=== PATIENT | male | born 1950 | race Caucasian/White ===

== ENCOUNTER 2018-01-08 18:56 | Inpatient (IN) ==
[2018-01-08] MEDS ORDERED: Ondansetron 4 MG/2 ML VIAL IVP ONE (21:00)
[2018-01-08] MEDS ORDERED: Ondansetron 4 MG/2 ML VIAL ONE (21:22)
[2018-01-08] MEDS ORDERED: Naloxone 0.4 MG/ML INJ IVP PRN ×2 (22:27→22:49)
[2018-01-08] MEDS: OXYCODONE Oral CONC 10 MG/0.5 ML ORAL.SYG SL PRN (23:07)
[2018-01-08 23:22] LABS: Basophils % 0.2 %; Eosinophils % 0.2 %; Hematocrit 32.4 % (37.5-50.1); Hemoglobin 11.5 g/dL (12.9-16.9); Immature Granulocytes % 0.4 % (0-4); Lymphocytes # 1.1 K/mcL (0.6-4.6); Lymphocytes % 8.9 %; Mean Corpuscular HGB Conc 35.5 g/dL (31.6-35.5); Mean Corpuscular Hemoglobin 31.9 pg (28.0-33.3); Mean Corpuscular Volume 89.8 fL (83.0-100.0); Mean Platelet Volume 9.2 fL (9.4-12.4); Monocytes # 0.7 K/mcL (0.0-1.3); Monocytes % 5.8 %; Platelet Count 102 K/mcL (140-400); Red Blood Count 3.61 M/mcL (4.19-5.50); Red Cell Distribution Width 14.1 % (11.5-14.5); Segmented Neutrophils % 84.5 %
[2018-01-08 23:42] LABS: Albumin/Globulin Ratio 1.7 (1.1-2.2); Bilirubin,Total 1.5 mg/dL (0.3-1.0); Calcium 9.2 mg/dL (8.6-10.3); Globulin 2.3 g/dL (2.4-3.5); Potassium 4.6 mEq/L (3.5-5.1); Total Protein 6.3 g/dL (6.4-8.9)
[2018-01-09] MEDS ORDERED: 0.9 % Sodium Chloride 1,000 ML IVC ONE (00:38)
[2018-01-09] MEDS ORDERED: D5% in Water 1,000 ML IVC PRN (00:43)
[2018-01-09] MEDS ORDERED: *HR* Dextrose 50 % in Water (Syg) 50 ML SYRINGE IVP PRN (00:43)
[2018-01-09] MEDS ORDERED: Dextrose Gel 15 GM/37.5 ML TUBE PO PRN ×2 (00:43)
[2018-01-09] MEDS ORDERED: Insulin DETEMIR 100 UNIT/ML X5UNITS SQ SCH (00:45)
--- NOTE | 2018-01-09 00:53 | Internal Med History&Physical ---
Date of Encounter: 01/08/18 Time of Encounter: 22:15 Internal Medicine - H&P: HPI Chief complaint: Subcapsular hematoma on left kidney Admitted From: Home Plans for Post Hospital Care: Home History of present illness: Mr. Smith is a 67 year old male Patient presented to the [facility] emergency room for left flank pain and nausea. He had just undergone a left renal biopsy earlier in the day. He states that the pain started after he had left, and has been worsening ever since. He also has started to dry heave, unable to vomit anything because he has not eaten all day. The pain does not radiate, he denies chest pain and shortness of breath. Denies diarrhea and constipation. In the emergency room patient, patient's CT abdomen showed acute mixed density subcapsular hematoma on the left kidney, 3.5cm thick up to 9.5cm craniocaudad. Perinephric air compatible with biopsy was also seen. Lab work showed platelet level of 126, BMP showed elevated creatinine and BUN, and a GFR of 30. EKG showed normal sinus rhythm with first degree heart block and a QTc of 495ms. He was given pain medication as well as nausea medication prior to being sent to [facility] for further management. According to my signout, Dr. Maxwell of interventional radiology was notified of the patient from [facility], and will see him on consult here at [facility]. Upon my evaluation, patient still feels nauseated and has left sided flank pain. Past Med Surg Social Fam HX - Past Medical History Medical history: diabetes, hypertension, myocardial infarction, renal disease Additional medical history: PERIPHERAL EDEMA. CKD IV. DIABETIC RENAL DISEASE. HYPERURICEMIA. ANEMIA. VITAMIN D DEFICIENCY. SECONDAY HYPERPARATHYROIDISM. MICROSCOPIC HEMATURIA Psychiatric history: no psych history - Past Surgical History Additional surgical history: HEART STENTS. CATARACTS. CHOLECYSTECTOMY. RIGHT HIP - Social History Smoking Status: Former smoker Smokeless Tobacco Status: No Alcohol use: none Drug use: none - Family History Mother Living Status: Age at : 38 Cause of : Heart Attack Hx Family Cardiac Disorders: Yes (OR) Father Living Status: Age at : 77 Cause of : Alcoholism Internal Medicine - H&P: Meds Allopurinol [Zyloprim 300 MG] 300 mg PO DAILY 01/08/18 [History] Aspirin [Adult Aspirin] 81 mg PO DAILY 01/08/18 [History] Atorvastatin [Lipitor] 40 mg PO HS 01/08/18 [History] Cholecalciferol (Vitamin D3) [Vitamin D] 2,000 unit PO DAILY 01/08/18 [History] Clopidogrel [Plavix] 75 mg PO DAILY 01/08/18 [History] Insulin NPH Hum/Reg Insulin Hm [Humulin 70-30 Vial] 100 unit SQ QAM AND QHS [History] Metoprolol Tartrate 75 mg PO BID 01/08/18 [History] Multivitamin [One Daily Essential] 1 each PO DAILY 01/08/18 [History] Olmesartan Medoxomil [Benicar] 20 mg PO DAILY 01/08/18 [History] amLODIPine [Norvasc] 5 mg PO DAILY 01/08/18 [History] cloNIDine HCl [CloNIDine HCl] 0.1 mg PO DAILY PRN 01/08/18 [History] 3 Allergy/AdvReac Type Severity Reaction Status Date / Time morphine AdvReac Nausea Verified 01/08/18 10:10 naproxen [From Naprosyn] AdvReac Rash Verified 01/08/18 10:10 All Systems PM: A 10-system review of systems was performed and is negative for pertinent findings except as documented above in the HPI. - Constitutional Vitals: Temp Pulse Resp BP Pulse Ox 97.9 F 96 12 166/88 99 01/08/18 21:20 01/08/18 21:20 01/08/18 21:20 01/08/18 21:20 01/08/18 21:20 General appearance: Present: cooperative, mild distress, A&O X 3, answers questions appropriately - Head Head exam: Present: normal inspection - Eye Eye exam: Present: EOMI, normal appearance - Respiratory Respiratory exam: Present: CTAB. Absent: chest wall tenderness, decreased breath sounds, respiratory distress, wheezes - Cardiovascular Cardiovascular exam: Present: RRR. Absent: diastolic murmur, systolic murmur - GI/Abdominal GI/Abdominal exam: Present: normal bowel sounds, soft, tenderness Additional comments: Left flank tenderness with palpation, no swelling noted. No erythema or bruising - Extremities Exam Extremities exam: Present: warm, radial pulses palpable and symmetrical. Absent : pedal edema, tenderness Additional comments: Right charcot foot, decreased sensation bilaterally. - Back Exam Back exam: Present: CVA tenderness (L) Additional comments: Site of previous biopsy seen at left lower back, no active bleed from wound. No erythema or bruising noted. - Neurological Exam Neurological exam: Present: motor sensory deficit, no focal deficits, strengths equal and symetr throughout. Absent: facial droop, speech deficit Additional comments: Bilaterally has decreased sensation in feet, present on admission - Skin Skin exam: Present: dry, normal color, warm Additional comments: Small wound from biopsy left lower back Internal Med - H&P Results - Labs CBC & Chem 7: 01/08/18 23:00 01/08/18 23:00 Labs: Short CBC 01/08/18 Range/Units 23:00 WBC 11.8 H D (4.3-11.1) K/mcL Hgb 11.5 L (12.9-16.9) g/dL Hct 32.4 L (37.5-50.1) % Plt Count 102 L (140-400) K/mcL Neutrophils # 10.0 H (1.6-8.9) K/mcL BMP 01/08/18 23:00 Sodium 138 Potassium 4.6 Chloride 105 Carbon Dioxide 23 BUN 41 H Creatinine 2.36 H Glucose 214 H Calcium 9.2 Liver Function 01/08/18 Range/Units 23:00 Total Bilirubin 1.5 H (0.3-1.0) mg/dL AST 19 (13-39) Units/L ALT 20 (7-52) Units/L Alkaline Phosphatase 89 (34-104) Units/L Albumin 4.0 (3.5-5.7) g/dL - Assessment and plan (1) Kidney hematoma Current Visit: Yes Status: Acute Assessment and plan: Secondary to today's biopsy. Dr. Maxwell of IR called from [facility], will see in consult. Hemoglobin stable, 12.4 at [facility] Repeat labs Q6H and monitor hemoglobin Type and screen if blood loss suspected, H/H stable currently IR to see in the AM Qualifiers: Qualified Code(s): S37.012A - Minor contusion of left kidney, initial encounter (2) Nausea Current Visit: Yes Status: Acute Assessment and plan: Secondary to biopsy and abdominal pain, will monitor QTc for prolongation when giving zofran and phenergan. EKG upon arrival Zofran as needed if QTc not prolonged. (3) Acute flank pain Current Visit: Yes Status: Acute Assessment and plan: Secondary to biopsy Oxycodone as needed for pain sublingual. (4) Diabetes Current Visit: Yes Status: Acute Assessment and plan: Insulin dependent, currently patient is NPO due to nausea and in case procedures need to be performed in the morning. Monitor blood sugar Q6H Sliding scale insulin medium Basal insulin tonight. Qualifiers: Diabetes mellitus type: type 2 Diabetes mellitus termite inspector insulin use: with termite inspector use Diabetes mellitus complication status: with neurologic complications Diabetes mellitus complication detail: with polyneuropathy Qualified Code(s): E11.42 - Type 2 diabetes mellitus with diabetic polyneuropathy; Z79.4 - nursing home (current) use of insulin (5) Thrombocytopenia Current Visit: Yes Status: Acute Assessment and plan: Patient seems to have a chronic history of low platelets. Could have contribute to his current hematoma. Continue to monitor (6) History of heart artery stent Current Visit: Yes Status: Acute Assessment and plan: Patient takes plavix and ASA daily for this, however was told to stop it the day prior to his procedure. Patient denies chest pain. Will resume at discharge when stable from the hematoma. (7) Neuropathy Current Visit: Yes Status: Acute Assessment and plan: Bilateral secondary to diabetes Continue to monitor. (8) Charcot foot due to diabetes mellitus Current Visit: Yes Status: Acute Assessment and plan: Chronic, managing diabetes as above. Patient has wobbly gait due to this at baseline. (9) HTN (hypertension) Current Visit: Yes Status: Acute Assessment and plan: Chronic, continue home meds at discharge Continue to monitor. Qualifiers: Qualified Code(s): I10 - Essential (primary) hypertension (10) DVT prophylaxis Current Visit: Yes Status: Acute Assessment and plan: SCDs - Time Spent With Patient Total time spent is greater than 50% in coordination of care (as documented) at patient's floor/unit and/or counseling patient: Greater than 35 minutes
[2018-01-09] MEDS: Ondansetron 4 MG/2 ML VIAL IVP PRN ×2 (03:19→08:07)
[2018-01-09 04:00] LABS: Hematocrit 30.6 % (37.5-50.1); Hemoglobin 10.7 g/dL (12.9-16.9); Mean Corpuscular Hemoglobin 31.6 pg (28.0-33.3); Mean Corpuscular Volume 90.3 fL (83.0-100.0); Mean Platelet Volume 8.9 fL (9.4-12.4); Platelet Count 105 K/mcL (140-400); Red Blood Count 3.39 M/mcL (4.19-5.50)
[2018-01-09 04:26] LABS: Potassium 4.6 mEq/L (3.5-5.1)
[2018-01-09 07:36] LABS: Basophils % 0.1 %; Hematocrit 29.6 % (37.5-50.1); Hemoglobin 10.5 g/dL (12.9-16.9); Immature Granulocytes % 0.4 % (0-4); Immature Platelets 1.1 % (1.1-6.1); Lymphocytes % 8.8 %; Mean Corpuscular HGB Conc 35.5 g/dL (31.6-35.5); Mean Corpuscular Volume 90.2 fL (83.0-100.0); Mean Platelet Volume 9.1 fL (9.4-12.4); Monocytes # 0.8 K/mcL (0.0-1.3); Monocytes % 7.2 %; Neutrophils # 9.6 K/mcL (1.6-8.9); Platelet Count 118 K/mcL (140-400); Red Blood Count 3.28 M/mcL (4.19-5.50); Red Cell Distribution Width 13.9 % (11.5-14.5); Segmented Neutrophils % 83.5 %
[2018-01-09 07:41] LABS: INR 1.1; Prothrombin Time 12.8 Seconds (9.4-12.1)
[2018-01-09] MEDS: OXYCODONE Oral CONC 10 MG/0.5 ML ORAL.SYG SL PRN (08:07)
[2018-01-09] MEDS ORDERED: *HR* Morphine 2 MG/ML SYRINGE IVP ONE (08:17)
[2018-01-09] MEDS: Insulin LISPRO 300 UNITS/3 ML VIAL SQ SCH ×4 (08:28→21:59)
--- NOTE | 2018-01-09 08:31 | Electrocardiograph Report ---
[address] [place] [address] Test Date: 2018-01-08 Pat Name: Salvador Smith Department: 111 Room: 2A23 Gender: Weight Loss Consultant: : 1950 Requested By: Gino Bartholomew Order Number: [id number] Reading MD: Maxi Montanez Measurements Intervals [place] Rate: 99 P: -74 AR: 229 QRS: -48 QRSD: 116 T: 76 QT: 387 QTc: 443 Interpretive Statements SINUS RHYTHM WITH FIRST DEGREE AV BLOCK LEFT ANTERIOR FASCICULAR BLOCK LEFT VENTRICULAR HYPERTROPHY AND ST-T CHANGE POSSIBLE ANTERIOR MYOCARDIAL INFARCTION, OF INDETERMINATE AGE Electronically Signed On 01-09-2018 8:29:43 EDT by Maxi Montanez
--- NOTE | 2018-01-09 08:31 | Electrocardiograph Report ---
[address] [place] [address] Test Date: 2018-01-08 Pat Name: Salvador Smith Department: 111 Room: 2A23 Gender: M Physical Plant Manager: : 1950 Requested By: Lenny Mayfield Order Number: [id number] Reading MD: Maxi Montanez Measurements Intervals [place] Rate: 99 P: 17 TN: 223 QRS: -48 QRSD: 104 T: 62 QT: 371 QTc: 427 Interpretive Statements SINUS RHYTHM WITH FIRST DEGREE AV BLOCK MARKED LEFT AXIS DEVIATION VOLTAGE CRITERIA FOR LVH POSSIBLE ANTERIOR MYOCARDIAL INFARCTION, OF INDETERMINATE AGE Electronically Signed On 01-09-2018 8:30:05 EDT by Maxi Montanez
[2018-01-09] MEDS ORDERED: *HR* FentaNYL (PF) 100 MCG/2 ML VIAL IVP ONE ×2 (08:40→14:15)
--- NOTE | 2018-01-09 10:01 | Internal Med Progress Note ---
Date of Encounter: 01/09/18 Time of Encounter: 08:00 - Assessment and plan (1) Kidney hematoma Current Visit: Yes Status: Acute Assessment and plan: Acute left renal subcapsular hematoma - likely due to recent biopsy H&H is currently stable - monitor closely Continue IV Zofran as needed for nausea, IV morphine as needed for pain NPO except meds Hold ASA, Plavix Transfuse PRBC if hemoglobin drops below 10.0 CT Abd - mixed density subcapsular hematoma of the left kidney 3.5 cm thick, perinephric air compatible with biopsy Interventional radiology consult - pending Repeat labs in a.m., monitor closely Qualifiers: Encounter type: subsequent encounter Laterality: left Qualified Code(s): S37.012D - Minor contusion of left kidney, subsequent encounter (2) CKD (chronic kidney disease) stage 3, GFR 30-59 ml/min Current Visit: Yes Status: Chronic Assessment and plan: Mild DELFINA on CKD stage 3 - possibly related to hematoma and dehydration Continue IV fluids, avoid nephrotoxic agents and renally adjust meds Hold home dose of Benicar Nephrology consult - pending Repeat labs in a.m. (3) Diabetes Current Visit: Yes Status: Chronic Assessment and plan: Type 2 diabetes mellitus, insulin dependent hyperglycemia Continue insulin sliding scale with NovoLog Qualifiers: Diabetes mellitus type: type 2 Diabetes mellitus rodent exterminator insulin use: with rodent exterminator use Diabetes mellitus complication status: with neurologic complications Diabetes mellitus complication detail: with polyneuropathy Qualified Code(s): E11.42 - Type 2 diabetes mellitus with diabetic polyneuropathy; Z79.4 - shelter (current) use of insulin (4) CAD (coronary artery disease) Current Visit: Yes Status: Chronic Assessment and plan: Coronary artery disease s/p - stable, no anginal symptoms Continue home dose of Lipitor Hold ASA, Plavix due to hematoma Qualifiers: Coronary Disease-Associated Artery/Lesion type: [place] artery [place] vs. transplanted heart: [place] heart Associated angina: without angina Qualified Code(s): I25.10 - Atherosclerotic heart disease of [place] coronary artery without angina pectoris (5) HTN (hypertension) Current Visit: Yes Status: Chronic Assessment and plan: Essential hypertension, controlled, monitor closely Continue home dose of Lopressor, Norvasc Hold Benicar due to DELFINA on CKD 3 Qualifiers: Hypertension type: essential hypertension Qualified Code(s): I10 - Essential (primary) hypertension (6) Thrombocytopenia Current Visit: Yes Status: Chronic Assessment and plan: Chronic thrombocytopenia - possibly contributing to hematoma Monitor closely (7) DVT prophylaxis Current Visit: Yes Status: Acute Assessment and plan: SCDs. Avoid anticoagulants due to hematoma - Time Spent With Patient 25 - 35 minutes - Subjective Interval history: Examined this morning. Patient is awake. He is in discomfort due to left flank pain. Complains of persistent pain and nausea. Rates a 7/10. Worse with movement. He describes it as sharp pain. No fever. Hemodynamically stable. No other acute complaints. Admitted for left renal supcapsular Hematoma. H&H is currently stable. Monitor H&H closely. Interventional radiology consult is pending. Continue IV pain medication and IV fluids. Nephrology consult pending. - Constitutional Vitals: Temp Pulse Resp BP Pulse Ox 98.8 F 95 18 148/81 95 01/09/18 07:15 01/09/18 07:15 01/09/18 07:15 01/09/18 07:15 01/09/18 07:15 General appearance: Present: cooperative, mild distress (Discomfort due to pain) , A&O X 3, obese, answers questions appropriately - Head Head exam: Present: atraumatic - Eye Eye exam: Present: EOMI - ENT ENT exam: Present: mucous membranes dry - Respiratory Respiratory exam: Present: CTAB. Absent: rhonchi, tachypnea - Cardiovascular Cardiovascular exam: Present: RRR, +S1, +S2 - GI/Abdominal GI/Abdominal exam: Present: diminished bowel sounds, distended (Obese abdomen, slightly distended.), tenderness (Left flank tenderness). Absent: firm, guarding - Extremities Exam Extremities exam: Absent: calf tenderness, pedal edema - Neurological Exam Neurological exam: Present: alert, oriented X3, no focal deficits - Psychiatric Psychiatric exam: Present: anxious Internal Medicine: Result - Labs CBC & Chem 7: 01/09/18 07:26 01/09/18 03:44 Labs: Short CBC 01/08/18 01/09/18 01/09/18 Range/Units 23:00 03:44 07:26 WBC 11.8 H D 11.1 11.5 H (4.3-11.1) K/mcL Hgb 11.5 L 10.7 L 10.5 L (12.9-16.9) g/dL Hct 32.4 L 30.6 L 29.6 L (37.5-50.1) % Plt Count 102 L 105 L 118 L (140-400) K/mcL Neutrophils # 10.0 H 9.6 H (1.6-8.9) K/mcL BMP 01/08/18 01/09/18 23:00 03:44 Sodium 138 139 Potassium 4.6 4.6 Chloride 105 107 Carbon Dioxide 23 22 L BUN 41 H 42 H Creatinine 2.36 H 2.47 H Glucose 214 H 203 H Calcium 9.2 9.0 Liver Function 01/08/18 Range/Units 23:00 Total Bilirubin 1.5 H (0.3-1.0) mg/dL AST 19 (13-39) Units/L ALT 20 (7-52) Units/L Alkaline Phosphatase 89 (34-104) Units/L Albumin 4.0 (3.5-5.7) g/dL - ABG Interpretation ABG results: PT/INR, D-dimer PT 12.8 Seconds (9.4-12.1) H 01/09/18 07:26 Consult Discharge Plan - Plan Referrals: Esequiel Bernstein MD [Primary Care Provider] -
[2018-01-09] MEDS: Cholecalciferol (D-3) 1,000 UNIT TABLET PO SCH (10:08)
[2018-01-09] MEDS: Multivit/Ca/Min/Fe/FA 1 TAB TABLET PO SCH (10:08)
[2018-01-09] MEDS: 0.9 % Sodium Chloride 1,000 ML IVC SCH (10:10)
--- NOTE | 2018-01-09 12:25 | Nephrology Consult Note ---
<Jeffrey Begum - Last Filed: 01/09/18 14:50> Date of Encounter: 01/09/18 Time of Encounter: 12:30 Assessment and Plan (1) Stage 4 chronic kidney disease Current Visit: Yes Status: Acute Patient follows with Dr. Patricio for CKD, recent worsening of CKD from stage 3 to stage 4. He is status post left renal biopsy on 01/08/18. reviewed eCw, PTH WNL, UA demonstrated small blood and trace protein. Biopsy was ordered to rule out glomerular disease. At [place] [facility] ER, CT abdomen showed acute mixed density subcapsular hematoma on the left kidney, 3.5cm thick up to 9.5cm craniocaudad We will obtain a repeat UA and recommend serial Hb Check. IR to address left kidney hematoma. Nephrology will continue to follow. (2) Kidney hematoma Current Visit: Yes Status: Acute left kidney hematoma s/p CT guided left kidney biopsy. Recommend serial Hb check. IR to address. Continue pain management and IVF as needed. (4) Diabetes Current Visit: Yes Status: Acute Assessment and plan: Insulin dependent, currently patient is NPO due to nausea and in case procedures need to be performed by IR. Treat per primary. continue sliding scale insulin medium Qualifiers: Diabetes mellitus type: type 2 Diabetes mellitus jail insulin use: with director risk use Diabetes mellitus complication status: with neurologic complications Diabetes mellitus complication detail: with polyneuropathy Qualified Code(s): E11.42 - Type 2 diabetes mellitus with diabetic polyneuropathy; Z79.4 - senior living (current) use of insulin (5) Thrombocytopenia Current Visit: Yes Status: Acute Assessment and plan: Patient seems to have a chronic history of low platelets. Could have contribute to his current hematoma. Continue to monitor (6) History of heart artery stent Current Visit: Yes Status: Acute Assessment and plan: Per primary, patient takes plavix and ASA daily for this, however was told to stop it the day prior to his procedure. Patient denies chest pain. Will resume at discharge when stable from the hematoma. (7) HTN (hypertension) Current Visit: Yes Status: Acute Assessment and plan: Chronic, continue home meds at discharge Continue to monitor. Qualifiers: Qualified Code(s): I10 - Essential (primary) hypertension Qualifiers: Encounter type: subsequent encounter Laterality: left Qualified Code(s): S37.012D - Minor contusion of left kidney, subsequent encounter History of Present Illness - Reason for Consult Consult date: 01/09/18 - Chief Complaint left flank pain and nausea - History of Present Illness Mr. Guerrero is a 67M with PMHx CKD stage 3/4, diabetes, HTN, CAD who presented to [place] [facility] ED with complaints of left flank pain and nausea. He had left renal biopsy prior to his presentation to the emergency room. Left flank pain and nausea started after his biopsy. His appetite has also been declining and he has been dry heaving. Reports that the pain does not radiate. Denies chest pain or SOB. At the ED, CT demonstraeted acute mixed density subcapsular hematoma on the left kidney, 3.5cm thick up to 9.5 cm craniocaudad. EKG was NSR with first degree block and prolonged QT. Pain and nausea medication was given and patient' s symptoms improved. Dr. Maxwell of was notified and will see him later today. Today, patient is still nauseas and continues to have left flank pain. He reports temporary improvement of pain with the pain medication. Still has poor appetite and denies having vomited. Denies CP, SOB. Family at bedside is tearful. Past Med Surg Social Fam HX - Past Medical History Medical history: diabetes, hypertension, myocardial infarction, renal disease Additional medical history: PERIPHERAL EDEMA. CKD IV. DIABETIC RENAL DISEASE. HYPERURICEMIA. ANEMIA. VITAMIN D DEFICIENCY. SECONDAY HYPERPARATHYROIDISM. MICROSCOPIC HEMATURIA Psychiatric history: no psych history - Past Surgical History Additional surgical history: HEART STENTS. CATARACTS. CHOLECYSTECTOMY. RIGHT HIP - Social History Smoking Status: Former smoker Smokeless Tobacco Status: No Alcohol use: none Drug use: none - Family History Mother Living Status: Age at : 38 Cause of : Heart Attack Hx Family Cardiac Disorders: Yes (OK) Father Living Status: Age at : 77 Cause of : Alcoholism Medications and Allergies Allopurinol [Zyloprim 300 MG] 300 mg PO DAILY 01/08/18 [History] Aspirin [Adult Aspirin] 81 mg PO DAILY 01/08/18 [History] Atorvastatin [Lipitor] 40 mg PO HS 01/08/18 [History] Cholecalciferol (Vitamin D3) [Vitamin D] 2,000 unit PO DAILY 01/08/18 [History] Clopidogrel [Plavix] 75 mg PO DAILY 01/08/18 [History] Insulin NPH Hum/Reg Insulin Hm [Humulin 70-30 Vial] 100 unit SQ QAM AND QHS [History] Metoprolol Tartrate 75 mg PO BID 01/08/18 [History] Multivitamin [One Daily Essential] 1 each PO DAILY 01/08/18 [History] Olmesartan Medoxomil [Benicar] 20 mg PO DAILY 01/08/18 [History] amLODIPine [Norvasc] 5 mg PO DAILY 01/08/18 [History] cloNIDine HCl [CloNIDine HCl] 0.1 mg PO DAILY PRN 01/08/18 [History] 3 Allergy/AdvReac Type Severity Reaction Status Date / Time morphine AdvReac Nausea Verified 01/08/18 10:10 naproxen [From Naprosyn] AdvReac Rash Verified 01/08/18 10:10 Review of Systems All Systems: reviewed and no additional remarkable complaints except as stated Constitutional: as per HPI Nose, mouth and throat: as per HPI Cardiovascular: as per HPI Respiratory: as per HPI Gastrointestinal: as per HPI Musculoskeletal: as per HPI Integumentary: as per HPI Exam - Vital Signs Vital signs: Initial Vital Signs Pulse Ox 99 01/08/18 21:13 Vital Signs - Last 8 Hours Temp Pulse Resp BP Pulse Ox 01/09/18 11:04 99.1 F 86 16 157/81 98 01/09/18 07:15 98.8 F 95 18 148/81 95 01/09/18 05:26 98.6 F 93 18 147/80 99 Intake and Output 01/08/18 01/09/18 01/09/18 23:59 07:59 15:59 Intake Total 1000 / 1000 Output Total 50 / 50 Balance -50 / -50 1000 / 1000 Intake: IV Fluids 1000 / 1000 0.9 % Sodium Chloride 1,000 ML 1000 / 1000 @ 250 mls/hr IVC .Q4H ONE Rx#: [id number] Output: Emesis 50 / 50 Other: Weight 101 kg Blood Glucose* 188 204 196 - General Appearance Exam: General appearance: Present: cooperative, mild distress, A&O X 3, answers questions appropriately - Head Head exam: Present: normal inspection - Eye Eye exam: Present: EOMI, normal appearance - Respiratory Respiratory exam: Present: CTAB. Absent: chest wall tenderness, decreased breath sounds, respiratory distress, wheezes - Cardiovascular Cardiovascular exam: Present: RRR. Absent: diastolic murmur, systolic murmur - GI/Abdominal GI/Abdominal exam: Present: normal bowel sounds, soft, tenderness Additional comments: Left flank tenderness with palpation, no swelling noted. No erythema or bruising - Extremities Exam Extremities exam: Present: warm, radial pulses palpable and symmetrical. Absent : pedal edema, tenderness Additional comments: Right charcot foot, decreased sensation bilaterally. - Back Exam Back exam: Present: CVA tenderness (L) Additional comments: Site of previous biopsy seen at left lower back, no active bleed from wound. No erythema or bruising noted. - Neurological Exam Neurological exam: Present: motor sensory deficit, no focal deficits, strengths equal and symmetric throughout. Absent: facial droop, speech deficit Additional comments: Bilaterally has decreased sensation in feet, present on admission - Skin Skin exam: Present: dry, normal color, warm Additional comments: Small wound from biopsy left lower back Results - Lab Results 01/09/18 13:07 01/09/18 03:44 Most recent lab results Calcium 9.0 mg/dL (8.6-10.3) 01/09/18 03:44 Consult Discharge Plan - Plan Referrals: Esequiel Bernstein MD [Primary Care Provider] - <María Elena Jamil - Last Filed: 01/09/18 15:54> Date of Encounter: 01/09/18 Exam - Vital Signs Vital signs: Initial Vital Signs Pulse Ox 99 01/08/18 21:13 Vital Signs - Last 8 Hours Temp Pulse Resp BP Pulse Ox 01/09/18 15:38 98.8 F 71 18 134/66 96 01/09/18 11:04 99.1 F 86 16 157/81 98 Intake and Output 01/08/18 01/09/18 01/09/18 23:59 07:59 15:59 Intake Total 1000 / 1000 0 / 0 Output Total 50 / 50 Balance -50 / -50 1000 / 1000 0 / 0 Intake: IV Fluids 1000 / 1000 0.9 % Sodium Chloride 1,000 ML 1000 / 1000 @ 250 mls/hr IVC .Q4H ONE Rx#: [id number] Oral 0 / 0 Output: Emesis 50 / 50 Other: Meal NPO Percent of Meal Consumed 0% Weight 101 kg Blood Glucose* 188 204 196 Results - Lab Results 01/09/18 13:07 01/09/18 03:44 Most recent lab results Calcium 9.0 mg/dL (8.6-10.3) 01/09/18 03:44 - Attending Attestation I examined this patient and my medical decision-making was reviewed with the Resident Physician. I agree with the documented findings, disposition and treatment plan as described except to the extent set forth below. Pt seen and examined presenting with sever left sided flank pain hours after renal biopsy by IR under CT guidance for worsening renal fxn. CT noted to have hematoma and dropping hgb also noted. Exam only remarkable for left flank tenderness. Agree with IR reassessing pateint for need for any further intervention. Continue serial hgb checks and transfuse as needed. Need UA now and will recheck as needed if significant hematuria noted. Renal fxn fairly stable, will follow.
[2018-01-09 13:20] LABS: Basophils % 0.2 %; Hematocrit 28.2 % (37.5-50.1); Hemoglobin 9.6 g/dL (12.9-16.9); Immature Granulocytes % 0.5 % (0-4); Lymphocytes # 1.1 K/mcL (0.6-4.6); Lymphocytes % 8.6 %; Mean Corpuscular Hemoglobin 30.7 pg (28.0-33.3); Mean Corpuscular Volume 90.1 fL (83.0-100.0); Monocytes # 1.2 K/mcL (0.0-1.3); Monocytes % 9.5 %; Neutrophils # 10.4 K/mcL (1.6-8.9); Platelet Count 114 K/mcL (140-400); Red Blood Count 3.13 M/mcL (4.19-5.50); Red Cell Distribution Width 14.3 % (11.5-14.5); Segmented Neutrophils % 81.2 %
[2018-01-09] MEDS ORDERED: Pantoprazole 40 MG VIAL IVP ONE (17:45)
--- NOTE | 2018-01-09 18:20 | Event Note ---
Date of Encounter: 01/09/18 Time of Encounter: 18:00 Discussed about the patient this evening with Dr Mix, nephrology. We will transfuse 1 unit PRBC because patient had a 2 unit drop in hemoglobin. Patient continues to have left flank pain, retching and also complains of nausea. Patient possibly has GERD/gastritis. IV Protonix 40 mg given x1. Continue IV Zofran PRN. Hemodynamically stable at this time. Discussed with Dr Maxwell, inteventional radiology, earlier today. States that the hematoma seems to be contained and that patient has tamponade. He recommended to monitor H&H closely and continue supportive care. Advised to call back if patient develops any other problems or symptoms. I have paged interventional radiology this evening for possible need for intervention. Patient may be actively bleeding. Awaiting IR to call back. Transfuse 1 unit PRBC now. Monitor H&H closely.
[2018-01-09 18:21] LABS: Basophils % 0.1 %; Eosinophils % 0.1 %; Hematocrit 28.5 % (37.5-50.1); Immature Granulocytes % 0.6 % (0-4); Lymphocytes # 1.1 K/mcL (0.6-4.6); Lymphocytes % 7.3 %; Mean Corpuscular HGB Conc 35.1 g/dL (31.6-35.5); Mean Corpuscular Hemoglobin 32.2 pg (28.0-33.3); Mean Corpuscular Volume 91.6 fL (83.0-100.0); Mean Platelet Volume 9.1 fL (9.4-12.4); Monocytes # 1.6 K/mcL (0.0-1.3); Monocytes % 10.6 %; Neutrophils # 12.3 K/mcL (1.6-8.9); Platelet Count 115 K/mcL (140-400); Red Blood Count 3.11 M/mcL (4.19-5.50); Red Cell Distribution Width 14.2 % (11.5-14.5); Segmented Neutrophils % 81.3 %
[2018-01-09 18:34] LABS: Calcium 8.7 mg/dL (8.6-10.3); Potassium 4.8 mEq/L (3.5-5.1)
[2018-01-09 20:49] LABS: Bilirubin,Urine Negative (Negative); Clarity,Urine Clear (Clear); Color,Urine Yellow (Yellow); Glucose,Urine (UA) 100 mg/dL (Normal); Ketones,Urine Negative (Negative)
[2018-01-09 20:50] LABS: Blood,Urine Small (Negative); Leukocyte Esterase,Urine Negative (Negative); Nitrite,Urine Negative (Negative); Protein,Urine 100 mg/dL (Neg-Trace); Urobilinogen,Urine Normal (Normal)
[2018-01-09] MEDS ORDERED: 0.9 % Sodium Chloride 250 ML ONE (21:04)
[2018-01-09 21:24] LABS: Bacteria,Urine Few per hpf (None-Few); RBC,Urine 0-3 per hpf (0-3); WBC,Urine 0-3 per hpf (0-3)
[2018-01-09] MEDS: Insulin DETEMIR 100 UNIT/ML X5UNITS SQ SCH (21:59)
--- NOTE | 2018-01-09 22:04 | Event Note ---
Date of Encounter: 01/09/18 Time of Encounter: 21:[address] Olvin Carter. Radiologist had called regarding the patient's CT of the abdomen/pelvis stating that the hematoma appeared stable and recommended monitoring blood pressure and H&H and to call radiologist back if any change in clinical condition. Discussed these findings with patient's nurse with orders to monitor H&H every 6 and blood pressure every hour. Patient to be monitored closely overnight.
[2018-01-10 01:59] LABS: Hematocrit 26.9 % (37.5-50.1); Hemoglobin 9.2 g/dL (12.9-16.9)
[2018-01-10 02:19] LABS: Calcium 8.2 mg/dL (8.6-10.3); Potassium 4.8 mEq/L (3.5-5.1)
[2018-01-10] MEDS: Ondansetron 4 MG/2 ML VIAL IVP PRN ×2 (02:44→08:49)
[2018-01-10] MEDS: 0.9 % Sodium Chloride 1,000 ML IVC SCH ×2 (02:46→18:31)
[2018-01-10] MEDS ORDERED: *HR* FentaNYL (PF) 100 MCG/2 ML VIAL IVP ONE (04:24)
[2018-01-10] MEDS ORDERED: Nitroglycerin 0.4 MG TAB.SUBL SL PRN (06:34)
[2018-01-10] MEDS: Insulin LISPRO 300 UNITS/3 ML VIAL SQ SCH ×3 (07:51→17:15)
--- NOTE | 2018-01-10 07:59 | Event Note ---
Date of Encounter: 01/10/18 Time of Encounter: 06:50 Called to the patient's room for sudden onset of left sided chest pain. Had not had pain like this previously. Ordered EKG and stat troponin to evaluate. EKG did not appear to have any ST changes, very similar to his previous EKG. 1 SL nitro also given which improved the pain some. I spoke with the provider who will be managing his care today and he agreed to follow up.
[2018-01-10 08:49] LABS: Hematocrit 27.6 % (37.5-50.1); Hemoglobin 9.8 g/dL (12.9-16.9)
[2018-01-10] MEDS: Insulin DETEMIR 100 UNIT/ML X5UNITS SQ SCH ×2 (08:49→21:36)
[2018-01-10] MEDS: Pantoprazole 40 MG VIAL IVP SCH (08:49)
[2018-01-10] MEDS: Cholecalciferol (D-3) 1,000 UNIT TABLET PO SCH (08:49)
[2018-01-10] MEDS: Multivit/Ca/Min/Fe/FA 1 TAB TABLET PO SCH (08:49)
[2018-01-10] MEDS: OXYCODONE Oral CONC 10 MG/0.5 ML ORAL.SYG SL PRN (08:58)
--- NOTE | 2018-01-10 09:53 | Internal Med Progress Note ---
Date of Encounter: 01/10/18 Time of Encounter: 08:10 - Assessment and plan (1) Kidney hematoma Current Visit: Yes Status: Acute Assessment and plan: Acute left renal subcapsular hematoma - likely due to recent biopsy - seems stable H&H is currently stable - monitor closely Continue IV Zofran PRN nausea, IV Morphine, Oxycodone PRN pain Advance to clear liquid diet Hold ASA, Plavix due to hematoma Transfuse 1 unit PRBC now. 1 unit PRBC transfused yesterday. Keep hemoglobin > 10.0 CT Abd - mixed density subcapsular hematoma of the left kidney 3.5 cm thick, perinephric air compatible with biopsy Repeat CT Abd/Pelvis - left large perinephric hematoma seems stable Interventional radiology consult - recommends to monitor H&H and blood pressure closely Repeat labs in a.m., monitor closely Qualifiers: Encounter type: subsequent encounter Laterality: left Qualified Code(s): S37.012D - Minor contusion of left kidney, subsequent encounter (2) CKD (chronic kidney disease) stage 3, GFR 30-59 ml/min Current Visit: Yes Status: Chronic Assessment and plan: DELFINA on CKD stage 3-4 - possibly related to hematoma and dehydration - Cr is worse this morning Continue IV fluids, avoid nephrotoxic agents and renally adjust meds Hold home dose of Benicar Nephrology following, appreciate input Repeat labs in a.m. (3) CAD (coronary artery disease) Current Visit: Yes Status: Chronic Assessment and plan: Coronary artery disease s/p - stable - chest pain earlier this morning Continue home dose of Lipitor Hold ASA, Plavix due to hematoma EKG - sinus rhythm with no acute ST-T changes Troponin - 0.04 (cycle troponin) Cardiac consult - pending Qualifiers: Coronary Disease-Associated Artery/Lesion type: [place] artery [place] vs. transplanted heart: [place] heart Associated angina: without angina Qualified Code(s): I25.10 - Atherosclerotic heart disease of [place] coronary artery without angina pectoris (4) Diabetes Current Visit: Yes Status: Chronic Assessment and plan: Type 2 diabetes mellitus, insulin dependent hyperglycemia Continue insulin sliding scale with NovoLog Qualifiers: Diabetes mellitus type: type 2 Diabetes mellitus alf insulin use: with long term care social worker use Diabetes mellitus complication status: with neurologic complications Diabetes mellitus complication detail: with polyneuropathy Qualified Code(s): E11.42 - Type 2 diabetes mellitus with diabetic polyneuropathy; Z79.4 - ocean transportation intermediary (current) use of insulin (5) HTN (hypertension) Current Visit: Yes Status: Chronic Assessment and plan: Essential hypertension, controlled, monitor closely Continue home dose of Lopressor, Norvasc Hold Benicar due to DELFINA on CKD 3-4 Qualifiers: Hypertension type: essential hypertension Qualified Code(s): I10 - Essential (primary) hypertension (6) Thrombocytopenia Current Visit: Yes Status: Chronic Assessment and plan: Chronic thrombocytopenia, stable - possibly contributing to hematoma Monitor closely (7) DVT prophylaxis Current Visit: Yes Status: Acute Assessment and plan: SCDs. Avoid anticoagulants due to hematoma - Time Spent With Patient 25 - 35 minutes - Subjective Interval history: Examined this morning. Patient is awake. Complains of left flank pain and nausea. Rates the pain 5/10. Worse with movement. Seems to be better today. He describes it as sharp pain. No fever. Hemodynamically stable. Renal function is worse this morning. Continue IV fluids. Patient complained of left-sided chest pain earlier this morning. Seems to have resolved with SL Nitro. EKG shows sinus rhythm with no acute ST-T changes. Troponin is 0.04. Cycle troponin. Cardiology consult pending. Admitted for left renal supcapsular Hematoma. H&H dropped slightly. Transfuse 1 unit PRBC now. Patient received 1 unit PRBC yesterday. Monitor H&H closely. Interventional radiology recommends to monitor H&H and blood pressure closely. Continue IV pain medication and IV fluids. Nephrology has evaluated patient. Repeat CT Abd/pelvis - large left perinephric hematoma seems to be stable. is at bedside. I have explained to the patient and his regarding his condition and plan of care in detail. They understood and agreed. - Constitutional Vitals: Temp Pulse Resp BP Pulse Ox 98.0 F 101 20 131/76 92 01/10/18 08:00 01/10/18 08:00 01/10/18 08:00 01/10/18 08:00 01/10/18 08:00 General appearance: Present: cooperative, mild distress (Discomfort due to pain) , A&O X 3, obese, answers questions appropriately Exam: Generalized weakness. Able to provide history. - Head Head exam: Present: atraumatic - Eye Eye exam: Present: EOMI - ENT ENT exam: Present: mucous membranes dry - Neck Neck exam general surgery: Present: supple - Respiratory Respiratory exam: Present: decreased breath sounds (Slightly decreased in both bases, otherwise clear to auscultation) - Cardiovascular Cardiovascular exam: Present: RRR, +S1, +S2 - GI/Abdominal GI/Abdominal exam: Present: distended (obese, slightly distended), soft, tenderness (left flank pain). Absent: firm, guarding - Extremities Exam Extremities exam: Present: pedal edema (mild b/l). Absent: calf tenderness, tenderness - Neurological Exam Neurological exam: Present: alert, oriented X3, no focal deficits. Absent: speech deficit - Psychiatric Psychiatric exam: Present: anxious Internal Medicine: Result - Labs CBC & Chem 7: 01/10/18 08:32 01/10/18 01:45 Labs: Short CBC 01/09/18 01/09/18 01/10/18 Range/Units 13:07 18:07 01:45 WBC 12.7 H 15.1 H (4.3-11.1) K/mcL Hgb 9.6 L 10.0 L 9.2 L (12.9-16.9) g/dL Hct 28.2 L 28.5 L 26.9 L (37.5-50.1) % Plt Count 114 L 115 L (140-400) K/mcL Neutrophils # 10.4 H 12.3 H (1.6-8.9) K/mcL 01/10/18 Range/Units 08:32 WBC (4.3-11.1) K/mcL Hgb 9.8 L (12.9-16.9) g/dL Hct 27.6 L (37.5-50.1) % Plt Count (140-400) K/mcL Neutrophils # (1.6-8.9) K/mcL BMP 01/09/18 01/10/18 18:09 01:45 Sodium 139 136 Potassium 4.8 4.8 Chloride 106 105 Carbon Dioxide 25 24 BUN 51 H 58 H Creatinine 3.18 H 3.34 H Glucose 209 H 196 H Calcium 8.7 8.2 L Cardiac Enzymes 01/10/18 Range/Units 06:41 Troponin I 0.04 H* (< 0.04) ng/mL Urine 01/09/18 Range/Units 12:19 Urine Color Yellow (Yellow) Urine Clarity Clear (Clear) Urine pH 6.0 (5.0-8.0) pH Units Ur Specific Gatzke 1.010 (1.010-1.025) Urine Protein 100 H (Neg-Trace) mg/dL Urine Glucose (UA) 100 H (Normal) mg/dL - ABG Interpretation ABG results: PT/INR, D-dimer PT 12.8 Seconds (9.4-12.1) H 01/09/18 07:26 - Impressions Impressions Abdomen/Pelvis CT 01/09/18 18:26 IMPRESSION: 1. Large left perinephric hematoma measuring approximately 3.3 x 9.0 cm resulting in mass effect upon the left kidney. This is grossly similar in size compared with prior CT same day from 5:13 p.m.. Adjacent left perinephric stranding is seen which extends along the left pericolic gutter with a small amount of trace simple free fluid within the pelvis. 2. Trace left pleural effusion and bibasilar atelectasis. 3. Severe coronary artery atherosclerotic disease. 4. Evidence for remote granulomatous disease. D/ / Robert Johnson MD / Robert Johnson MD Interpreting Provider: Robert Johnson MD Consult Discharge Plan - Plan Referrals: Esequiel Bernstein MD [Primary Care Provider] -
[2018-01-10 10:19] LABS: Troponin I 0.05 ng/mL (< 0.04)
[2018-01-10] MEDS ORDERED: Perflutren Lipid Microsphere 1.3 ML in 0.9 % Sodium Chloride 8.7 ML IVP ONE (10:32)
[2018-01-10] MEDS ORDERED: 0.9 % Sodium Chloride 250 ML ONE (11:13)
[2018-01-10] MEDS ORDERED: Acetaminophen 325 MG TABLET PO PRN (11:23)
--- NOTE | 2018-01-10 11:27 | Cardiology Consult Note ---
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 Nephrology following. (2) Kidney hematoma Current Visit: Yes Status: Acute Per Cardiology: Recent renal biopsy and CT currently shows 3.3cm x 9cm left perinephric hematoma. Has history of anemia, however H&H downward from baseline. Pending one unit blood transfusion by primary service. Qualifiers: Encounter type: subsequent encounter Laterality: left Qualified Code(s): S37.012D - Minor contusion of left kidney, subsequent encounter (3) Thrombocytopenia Current Visit: Yes Status: Chronic Per Cardiology: Apparent history of thrombocytopenia. Aspirin currently on hold with hematoma. (4) Elevated troponin I measurement Current Visit: Yes Status: Acute Per Cardiology: Mild adynamic troponins of 0.04 and 0.05 setting of CK D stage IV and acute on chronic anemia with recent left kidney hematoma. Atypical chest pain that occurred at rest and setting the left flank hematoma. Echo pending. Will attempt to obtain recent stress test results which are reportedly negative. No cardiac rehabilitation consult warranted at this time-- do not suspect non-STEMI , suspect demand ischemia. Assuming no significant findings on echocardiogram anticipate cardiology will sign off and have patient follow-up with his primary block placer once recovers from her acute event. On statin and beta elayne. Aspirin currently on hold. (5) CAD (coronary artery disease) Current Visit: Yes Status: Chronic Per Cardiology: History of CAD-- reported 4 stents in 2016. And reported negative stress test in 2018 with tests at [facility]. Qualifiers: Coronary Disease-Associated Artery/Lesion type: [place] artery [place] vs. transplanted heart: [place] heart Associated angina: without angina Qualified Code(s): I25.10 - Atherosclerotic heart disease of [place] coronary artery without angina pectoris Discussion w patient/family: The assessment and plan as outlined above was discussed with the patient and/or family members who expressed understanding and agreement. All questions were answered. Thank you for involving us in the care of your patient. Please call with any questions. History of Present Illness Consult date: 01/10/18 Requesting physician: Olvin Jackson Consult reason: CP, Mild Trop Chief complaint: CP History of present illness: Mr. Smith is a 67 year old male with a relevant past medical history of CK D , HTN, DM 2, CAD. Not previously seen by cardiology. Cardiology consult for chest pain and mild troponin elevation. Patient seen with family at bedside. Majority of history obtained from . Reported 4 stents in 2016 at [facility]. They report recent negative stress test they believe at [facility] 2018. Follows with Dr. Mata with cardiology. Presented after left kidney biopsy due to left flank pain. This morning developed mid sternal chest heaviness at rest that has now subsided. reports patient did experience some nausea with his left flank pain upon arrival. Currently chest pain-free area prior to this admission had been chest pain-free. Denies any palpitations. Denies any acute bleeding or blood loss. Denies any dizziness, syncope, falls. Past Med Surg Social Fam HX - Past Medical History Attestation: Yes The following information was validated with the patient. Source: patient, old records reviewed, obtained from family Medical history: diabetes, hypertension, myocardial infarction, renal disease Additional medical history: PERIPHERAL EDEMA. CKD IV. DIABETIC RENAL DISEASE. HYPERURICEMIA. ANEMIA. VITAMIN D DEFICIENCY. SECONDAY HYPERPARATHYROIDISM. MICROSCOPIC HEMATURIA Psychiatric history: no psych history - Past Surgical History Additional surgical history: HEART STENTS. CATARACTS. CHOLECYSTECTOMY. RIGHT HIP - Social History Smoking Status: Former smoker Smokeless Tobacco Status: No Alcohol use: none Drug use: none - Family History Mother Living Status: Age at : 38 Cause of : Heart Attack Hx Family Cardiac Disorders: Yes (DE) Father Living Status: Age at : 77 Cause of : Alcoholism Medications and Allergies Allopurinol [Zyloprim 300 MG] 300 mg PO DAILY 01/08/18 [History] Aspirin [Adult Aspirin] 81 mg PO DAILY 01/08/18 [History] Atorvastatin [Lipitor] 40 mg PO HS 01/08/18 [History] Cholecalciferol (Vitamin D3) [Vitamin D] 2,000 unit PO DAILY 01/08/18 [History] Clopidogrel [Plavix] 75 mg PO DAILY 01/08/18 [History] Insulin NPH Hum/Reg Insulin Hm [Humulin 70-30 Vial] 100 unit SQ QAM AND QHS [History] Metoprolol Tartrate 75 mg PO BID 01/08/18 [History] Multivitamin [One Daily Essential] 1 each PO DAILY 01/08/18 [History] Olmesartan Medoxomil [Benicar] 20 mg PO DAILY 01/08/18 [History] amLODIPine [Norvasc] 5 mg PO DAILY 01/08/18 [History] cloNIDine HCl [CloNIDine HCl] 0.1 mg PO DAILY PRN 01/08/18 [History] 3 Allergy/AdvReac Type Severity Reaction Status Date / Time morphine AdvReac Nausea Verified 01/08/18 10:10 naproxen [From Naprosyn] AdvReac Rash Verified 01/08/18 10:10 All Systems Review: The remainder of the systems were reviewed and are negative - Cardiovascular Cardiovascular: as per HPI, chest pain at rest - Gastrointestinal Gastrointestinal: nausea - Musculoskeletal Musculoskeletal: other (Left flank pain status post renal biopsy) Physical Examination Vital Signs, Last 4 Hours Temp Pulse Resp BP Pulse Ox 01/10/18 08:00 98.0 F 101 20 131/76 92 General: Conversant, No Apparent Distress, Other (somewhat somnolent) HEENT: Atraumatic, Normocephaly, Mucus Membranes Moist Neck: No JVD, Normal carotid pulses Cardiac: Reg Rate and Rhythm, Normal S1 and S2, No Murmur Lungs: Normal Breath Sounds, No Wheeze, Rales, Rhonchi Neuro: Alert and responsive, No focal deficits noted Abdomen: Soft, Non-Tender Skin: No rashes noted on visualized skin Musculoskeletal: No Chest Wall Tenderness Extremities: No Clubbing, No Cyanosis, No Edema, Normal Pulses Results 01/10/18 08:32 01/10/18 01:45 Lab Results Laboratory Tests 01/08/18 01/08/18 01/09/18 23:00 23:00 07:26 Hgb 11.5 L Hct 32.4 L Plt Count 102 L INR 1.1 Creatinine 2.36 H Est GFR (Non-Af Amer) 28 L AST 19 ALT 20 Troponin I 01/09/18 01/10/18 01/10/18 18:07 01:45 06:41 Hgb Hct Plt Count 115 L INR Creatinine 3.34 H Est GFR (Non-Af Amer) 19 L AST ALT Troponin I 0.04 H* 01/10/18 01/10/18 08:32 09:24 Hgb 9.8 L Hct 27.6 L Plt Count INR Creatinine Est GFR (Non-Af Amer) AST ALT Troponin I 0.05 H* ITS Impressions Abdomen/Pelvis CT 01/09/18 18:26 IMPRESSION: 1. Large left perinephric hematoma measuring approximately 3.3 x 9.0 cm resulting in mass effect upon the left kidney. This is grossly similar in size compared with prior CT same day from 5:13 p.m.. Adjacent left perinephric stranding is seen which extends along the left pericolic gutter with a small amount of trace simple free fluid within the pelvis. 2. Trace left pleural effusion and bibasilar atelectasis. 3. Severe coronary artery atherosclerotic disease. 4. Evidence for remote granulomatous disease. D/ / Robert Johnson MD / Robert Johnson MD Interpreting Provider: Robert Johnson MD Active Medications Acetaminophen (Tylenol) 325 mg PO Q6HR PRN PRN Reason: Fever Stop: 07/12/18 11:24 Atorvastatin Calcium (Lipitor) 40 mg PO HS ADRIAN Stop: 07/11/18 21:01 Last Admin: 01/09/18 21:59 Dose: 40 mg Dextrose/Water (Dextrose 50% (Syg)) 25 ml IVP AD PRN PRN Reason: Hypoglycemia Stop: 07/11/18 00:44 Glucagon (Glucagen) 1 mg IM ONCE PRN PRN Reason: Hypoglycemia Stop: 07/11/18 00:44 Glucose (Gluctose) 15 gm PO ONCE PRN PRN Reason: Hypoglycemia Stop: 07/11/18 00:44 Glucose (Gluctose) 30 gm PO ONCE PRN PRN Reason: Hypoglycemia Stop: 07/11/18 00:44 Dextrose (Dextrose 5%) 1,000 mls @ 100 mls/hr IVC .Q10H PRN PRN Reason: HYPOGLYCEMIA Stop: 07/11/18 00:44 Sodium Chloride (0.9 % Sodium Chloride) 1,000 mls @ 80 mls/hr IVC .[id number] ADRIAN Stop: 07/11/18 07:31 Last Admin: 01/10/18 02:46 Dose: 80 mls/hr Insulin Detemir (Levemir) 10 unit SQ BID ADRIAN Stop: 07/11/18 21:01 Last Admin: 01/10/18 08:49 Dose: 10 unit Insulin Human Lispro (Humalog) 0 units SQ TIDAC [facility] PRN Reason: Protocol Stop: 07/11/18 07:31 Last Admin: 01/10/18 07:51 Dose: Not Given Insulin Human Lispro (Humalog) 0 units SQ HS [facility] PRN Reason: Protocol Stop: 07/11/18 21:01 Last Admin: 01/09/18 21:59 Dose: Not Given Metoprolol Tartrate (Lopressor) 75 mg PO BID [facility] Stop: 07/11/18 09:01 Last Admin: 01/10/18 08:49 Dose: 75 mg Multivitamins/Calcium (Thera M Plus) 1 tab PO DAILY [facility] Stop: 07/11/18 09:01 Last Admin: 01/10/18 08:49 Dose: 1 tab Naloxone HCl (Narcan) 0.4 mg IVP Q2MIN PRN PRN Reason: SEE COMMENTS Stop: 07/10/18 22:50 Nitroglycerin (Nitroglycerin) 0.4 mg SL Q5MIN PRN PRN Reason: Chest Pain Stop: 07/12/18 06:35 Last Admin: 01/10/18 06:43 Dose: 0.4 mg Ondansetron HCl (Zofran) 4 mg IVP Q6HR PRN; Protocol PRN Reason: Nausea Stop: 07/11/18 00:36 Last Admin: 01/10/18 08:49 Dose: 4 mg Oxycodone HCl (Oxycodone Oral Conc) 10 mg SL Q4H PRN; Protocol PRN Reason: Severe Pain Stop: 07/10/18 22:50 Last Admin: 01/10/18 08:58 Dose: 10 mg Pantoprazole Sodium (Protonix) 40 mg IVP DAILY [facility] Stop: 07/12/18 09:01 Last Admin: 01/10/18 08:49 Dose: 40 mg Vitamin D (Vitamin D) 1,000 unit PO DAILY [facility] Stop: 07/11/18 09:01 Last Admin: 01/10/18 08:49 Dose: 1,000 unit - Imaging and Cardiology Echo: pending - EKG Interpretation EKG results cardiology: personally reviewed (Sinus rhythm with first-degree AV block), normal ECG, sinus rhythm, no diagnostic ischemia, other Consult Discharge Plan - Plan Referrals: Esequiel Bernstein MD [Primary Care Provider] - <Rufus Montes - Last Filed: 01/11/18 19:19> Date of Encounter: 01/10/18 Time of Encounter: 14:00 - Attending Attestation I have personally performed a face to face evaluation on this patient. I have reviewed and agree with the care plan. History and Exam by me shows: CC: left flank pain, elevated troponin HPI: Pt recently underwent left renal biopsy with progressive severe left flank pain post procedure, with subsequent imaging identifying large left retroperitoneal hematoma. Pt having difficulty with deep inspiration, movement due to left flank pain. Cardiac enzemes were drawn, were minimally elevated at 0.04 and 0.05, Pt denies chest pain, pressure, shortness of breath other than pain with deep inspiration, nausea or diaphoresis consistent with previous anginal equilavent. He underwent evaluation for chest pain in 2016, found to have significant CAD, with placement four stents at that time. He has not had reoccurence of chest pain, follows regularly with Dr. Mata, reportedly has had normal stress test within the last year. ROS: reviewed PMH: reviewed PE: pt seen and examined, agree with findings as documented. IMP/Plan 1. Elevated troponins due to demand ischemia and poor renal clearance, no futher evaluation indicated unless symptoms change 2. Stable Class 1 angina post PCI with DARCY unknown vessel in 2016. 3. Large painful left flank hematoma post renal biopsy, continue supportive care PT to follow up with primary block placer at discharge. Assessment and Plan Discussion w patient/family: The assessment and plan as outlined above was discussed with the patient and/or family members who expressed understanding and agreement. All questions were answered. Thank you for involving us in the care of your patient. Please call with any questions. History of Present Illness History of present illness: Mr. Smith is a 67 year old male All Systems Review: The remainder of the systems were reviewed and are negative Physical Examination Vital Signs, Last 4 Hours Temp Pulse Resp BP Pulse Ox 01/11/18 18:42 101.2 F H 94 18 144/73 01/11/18 16:30 97.9 F 91 20 125/65 96 01/11/18 15:26 21 125/65 97 Results 01/11/18 14:04 01/11/18 05:40 Lab Results 01/10/18 01/10/18 01/11/18 18:51 21:50 05:40 WBC 25.8 H D Hgb 10.1 L 9.9 L 9.7 L Hct 29.2 L 29.0 L 28.5 L Plt Count 118 L Sodium Potassium Chloride Carbon Dioxide BUN Creatinine Glucose Calcium Total Bilirubin AST ALT Alkaline Phosphatase 01/11/18 01/11/18 01/11/18 05:40 07:15 14:04 WBC Hgb 10.1 L 10.3 L Hct 29.5 L 29.6 L Plt Count Sodium 136 Potassium 5.0 Chloride 107 Carbon Dioxide 20 L BUN 76 H Creatinine 4.75 H Glucose 157 H Calcium 8.0 L Total Bilirubin 2.7 H AST 38 ALT 31 Alkaline Phosphatase 80
[2018-01-10] MEDS ORDERED: Acetaminophen 325 MG TABLET PO ONE (12:06)
[2018-01-10 12:54] LABS: Uric Acid 7.3 mg/dL (2.3-7.6)
--- NOTE | 2018-01-10 14:57 | Nephrology Progress Note ---
Date of Encounter: 01/10/18 Time of Encounter: 12:00 - Assessment and Plan (1) DELFINA (acute kidney injury) Status: Acute SCr worse due to acute blood loss with hematoma post biopsy Agree with transfusion pRBCs today. Continue IVF as well Avoid all nephrotoxins if possible (2) Kidney hematoma Status: Acute post biopsy, repeat CT stable Continue sreial hgb checks IR on standby Qualifiers: Encounter type: subsequent encounter Laterality: left Qualified Code(s): S37.012D - Minor contusion of left kidney, subsequent encounter (3) Stage 4 chronic kidney disease Status: Chronic prelim biopsy results shows diabetic nephropathy with some HTN component Subjective Interval history: Pt seen and examined with less flank pain today but did have chest discomfort this am. Family at bedside. Receiving 2nd unit pRBCs in the pats 24hrs with low grade temp spike Objective - Vital Signs Vital signs: Vital Signs Temp Pulse Resp BP Pulse Ox 01/10/18 14:40 99.5 F 94 93 113/69 94 01/10/18 14:03 100.6 F H 01/10/18 12:02 101.1 F H 93 16 132/72 93 01/10/18 11:31 100.8 F H 93 16 137/78 93 01/10/18 08:00 98.0 F 101 20 131/76 92 01/10/18 06:25 127/62 01/10/18 05:15 14 145/79 90 01/10/18 04:00 149/75 01/10/18 03:00 156/80 01/10/18 02:10 147/75 01/10/18 01:26 99.9 F H 92 18 151/84 90 01/10/18 01:10 157/84 01/10/18 00:49 99.2 F 90 16 153/75 92 01/10/18 00:10 156/81 01/09/18 23:10 155/80 01/09/18 22:10 156/82 01/09/18 21:59 99.3 F 94 18 151/83 95 01/09/18 21:44 99.5 F 92 16 138/78 01/09/18 20:32 100.3 F H 90 17 142/75 90 01/09/18 15:38 98.8 F 71 18 134/66 96 Intake and Output 01/09/18 01/10/18 01/10/18 23:59 07:59 15:59 Intake Total 1800 / 1800 334 / 334 350 / 350 Output Total 600 / 600 Balance 1200 / 1200 334 / 334 350 / 350 Intake: IV Fluids 800 / 800 0.9 % Sodium Chloride 1,000 ML 800 / 800 @ 80 mls/hr IVC .[id number] [facility] Rx #:[id number] Oral 1000 / 1000 Blood Product 0 / 0 334 / 334 350 / 350 Rbcs Leuko Poor As-1 Unit 0 / 0 334 / 334 [id number] Rbcs Leuko Poor As-1 Unit 350 / 350 [id number] Output: Urine 600 / 600 Other: Blood Glucose* 222 188 194 - General Appearance General appearance: Present: well-developed, well-nourished EENT: Present: ATNC, mucous membranes moist Neck: Present: no JVD, supple Respiratory: Present: clear (ant bilat) Cardiology: Present: no edema, normal S1, normal S2 Gastrointestinal: Present: tenderness (LUQ into flank area), no guarding Integumentary: Present: warm and dry Neurologic: Present: no focal deficit Musculoskeletal: Present: no deformities Psychiatric: Present: mood/affect appropriate, cooperative - Lab 01/22/18 04:00 01/22/18 04:00 Most recent lab results Calcium 8.2 mg/dL (8.6-10.3) L 01/10/18 01:45 Consult Discharge Plan - Plan Instructions: Diabetes Mellitus Type 2 in Adults (DC), Tunneled Central Lines Adult (DC), Pneumonia (DC) Referrals: Lenny Patricio DO [Partnered Physician] - 02/06/18 9:10 am (Please follow up as schedule...) Esequiel Bernstein MD [Primary Care Provider] - 02/05/18 10:30 am (Please follow up as schedule...) Prescriptions: Renal Vitamin [Renal Caps Softgel] 1 cap PO DAILY #30 capsule
[2018-01-10 16:34] LABS: Hematocrit 30.4 % (37.5-50.1); Hemoglobin 10.5 g/dL (12.9-16.9)
[2018-01-10] MEDS: *HR* HYDROcodone/Acet 7.5/325 mg TABLET PO PRN (18:27)
[2018-01-10 19:14] LABS: Hematocrit 29.2 % (37.5-50.1); Hemoglobin 10.1 g/dL (12.9-16.9)
[2018-01-10] MEDS ORDERED: OXYCODONE Oral CONC 10 MG/0.5 ML ORAL.SYG SL ONE (20:10)
[2018-01-10 21:38] LABS: Bilirubin,Urine Negative (Negative); Blood,Urine Large (Negative); Clarity,Urine Turbid (Clear); Color,Urine Dark Yellow (Yellow); Glucose,Urine (UA) Normal (Normal); Ketones,Urine Negative (Negative); Leukocyte Esterase,Urine Small (Negative); Nitrite,Urine Negative (Negative); PH,Urine 5.5 pH Units (5.0-8.0); Protein,Urine 100 mg/dL (Neg-Trace); Specific Gravity,Urine 1.021 (1.010-1.025); Urobilinogen,Urine Normal (Normal)
[2018-01-10 21:44] LABS: Squamous Epithelial Cell,Urine Many per lpf (None-Few); WBC,Urine 15-30 per hpf (0-3)
[2018-01-10 22:04] LABS: Bacteria,Urine Few per hpf (None-Few); Hyaline Casts,Urine Few per lpf (None-Few); Mucus,Urine Moderate (Few)
[2018-01-10 22:05] LABS: RBC,Urine 30-50 per hpf (0-3); Yeast,Urine Few per hpf (None Seen)
[2018-01-10 22:33] LABS: Hemoglobin 9.9 g/dL (12.9-16.9)
[2018-01-11] MEDS: Insulin LISPRO 300 UNITS/3 ML VIAL SQ SCH ×3 (01:16→18:45)
[2018-01-11 06:13] LABS: Albumin 3.2 g/dL (3.5-5.7); Albumin/Globulin Ratio 1.2 (1.1-2.2); Bilirubin,Total 2.7 mg/dL (0.3-1.0); Globulin 2.6 g/dL (2.4-3.5); Total Protein 5.8 g/dL (6.4-8.9)
[2018-01-11 06:19] LABS: Basophils % 0.1 %
[2018-01-11 06:21] LABS: Hematocrit 28.5 % (37.5-50.1); Hemoglobin 9.7 g/dL (12.9-16.9); Immature Granulocytes % 3.6 % (0-4); Immature Platelets 1.9 % (1.1-6.1); Lymphocytes # 1.3 K/mcL (0.6-4.6); Lymphocytes % 5.2 %; Mean Corpuscular Hemoglobin 30.4 pg (28.0-33.3); Mean Corpuscular Volume 89.3 fL (83.0-100.0); Mean Platelet Volume 9.8 fL (9.4-12.4); Monocytes # 2.5 K/mcL (0.0-1.3); Monocytes % 9.6 %; Platelet Count 118 K/mcL (140-400); Red Blood Count 3.19 M/mcL (4.19-5.50); Red Cell Distribution Width 14.9 % (11.5-14.5); Segmented Neutrophils % 81.5 %
[2018-01-11 06:49] LABS: Platelet Estimate Slight Decrease (Normal)
[2018-01-11 07:38] LABS: Hematocrit 29.5 % (37.5-50.1); Hemoglobin 10.1 g/dL (12.9-16.9)
--- NOTE | 2018-01-11 07:48 | Event Note ---
Date of Encounter: 01/11/18 Time of Encounter: 07:50 - Cardiology Event Note ECHO: Impressions: LVEF 55%. Normal LV chamber size and function. Mild concentric left ventricular hypertrophy. Indeterminate diastolic function. Right ventricle was not well visualized. Atypical septal motion consistent with bundle branch block. No evidence of pulmonary hypertension identified. No significant valvular dysfunction. Left Ventricular Wall Motion: Rest Echo Findings All wall segments showed normal motion. No medical records received regarding stress test from outside facility. Patient denies any chest pain. Continues to experience short of breath however with significant left flank pain with guarding. Suspect noncardiac. Cardiology signoff, reconsult as needed, follow-up with primary erp business analyst. Discussed and reviewed with Dr. Montes. Patient and verbalized understanding agreed with plan.
[2018-01-11] MEDS: cefTRIAXone 1,000 MG in Water for inj. (sterile) 20 ML 10 ML IVP SCH (07:53)
[2018-01-11] MEDS: Acetaminophen 325 MG TABLET PO PRN ×2 (07:53→20:45)
[2018-01-11] MEDS ORDERED: MOM Conc 10 ML UD.LIQ PO ONE (07:57)
[2018-01-11] MEDS: 0.9 % Sodium Chloride 1,000 ML IVC SCH (08:05)
[2018-01-11] MEDS: Ondansetron 4 MG/2 ML VIAL IVP PRN ×2 (09:04→18:05)
[2018-01-11] MEDS: Multivit/Ca/Min/Fe/FA 1 TAB TABLET PO SCH (09:09)
[2018-01-11] MEDS: Pantoprazole 40 MG VIAL IVP SCH (09:09)
[2018-01-11] MEDS: Cholecalciferol (D-3) 1,000 UNIT TABLET PO SCH (09:09)
--- NOTE | 2018-01-11 09:36 | Internal Med Progress Note ---
Date of Encounter: 01/11/18 Time of Encounter: 07:50 - Assessment and plan (1) Kidney hematoma Current Visit: Yes Status: Acute Assessment and plan: Acute left renal subcapsular hematoma - likely due to recent biopsy - seems stable H&H is currently stable - monitor closely Continue IV Zofran PRN nausea, IV Morphine, Oxycodone PRN pain Advance to clear liquid diet Hold ASA, Plavix due to hematoma Transfuse 1 unit PRBC now. 1 unit PRBC transfused yesterday. Keep hemoglobin > 10.0 CT Abd - mixed density subcapsular hematoma of the left kidney 3.5 cm thick, perinephric air compatible with biopsy Repeat CT Abd/Pelvis - left large perinephric hematoma seems stable Interventional radiology consult - recommends to monitor H&H and blood pressure closely Repeat labs in a.m., monitor closely 01/11/2018: Left renal subcapsular hematoma - seems stable - patient has abdominal distention this morning H&H is currently stable - s/p [address] Abd/Pelvis - pending Chest x-ray - atelectasis, possible right basilar pneumonia Continue IV Zofran, Hyampom PRN, IV Protonix Monitor H&H closely. Keep hemoglobin > 10.0 IR consult - recommend to monitor H&H and blood pressure. IR on standby if needed Repeat labs in a.m., monitor closely Qualifiers: Encounter type: subsequent encounter Laterality: left Qualified Code(s): S37.012D - Minor contusion of left kidney, subsequent encounter (2) CKD (chronic kidney disease) stage 3, GFR 30-59 ml/min Current Visit: Yes Status: Chronic Assessment and plan: DELFINA on CKD stage 3-4 - possibly related to hematoma and dehydration - Cr is worse this morning Continue IV fluids, avoid nephrotoxic agents and renally adjust meds Hold home dose of Benicar Nephrology following, appreciate input Repeat labs in a.m. 01/11/2018: Worsening DELFINA on CKD stage 3-4 - possibly related to hematoma, dehydration GFR - 12 Cr - 4.75 Patient also has worsening edema in both hands, likely due to IV fluids Avoid nephrotoxic agents, renally adjust meds Hold home dose of Benicar Nephrology following, appreciate input Repeat labs in a.m., monitor closely (3) Respiratory failure with hypoxia Current Visit: Yes Status: Acute Assessment and plan: 01/11/2018: Acute hypoxic respiratory failure - likely due to right basilar pneumonia ( possibly present on admission - likely bacterial), atelectasis and possibly fluid overload - with probable sepsis Patient has abdominal distention and persistent left flank pain this morning. He also has shortness of breath. Add empiric IV Rocephin, DuoNeb breathing treatment, incentive spirometry Continue O2 via nasal cannula Chest x-ray - atelectasis, right basilar pneumonia CT Abd/pelvis - pending Cultures - pending WBC - 25.8 Lactic acid - pending Echocardiogram - LVEF 55%, indeterminant diastolic function, no valvular dysfunction Repeat labs in a.m., monitor closely Qualifiers: Chronicity: acute Qualified Code(s): J96.01 - Acute respiratory failure with hypoxia (4) CAD (coronary artery disease) Current Visit: Yes Status: Chronic Assessment and plan: Coronary artery disease s/p - stable - chest pain earlier this morning Continue home dose of Lipitor Hold ASA, Plavix due to hematoma EKG - sinus rhythm with no acute ST-T changes Troponin - 0.04 (cycle troponin) Cardiac consult - pending 01/11/2018: Patient denies chest pain. Complains of shortness of breath. Hold ASA, Plavix due to hematoma. Continue Lipitor. Echocardiogram - LVEF 55%, indeterminant diastolic function, LVH, atypical septal motion, no valvular dysfunction Cardiology following, appreciate input - no further cardiac evaluation needed at this time Qualifiers: Coronary Disease-Associated Artery/Lesion type: three affiliated artery [place] vs. transplanted heart: three affiliated heart Associated angina: without angina Qualified Code(s): I25.10 - Atherosclerotic heart disease of three affiliated coronary artery without angina pectoris (5) Diabetes Current Visit: Yes Status: Chronic Assessment and plan: Type 2 diabetes mellitus, insulin dependent hyperglycemia Continue insulin sliding scale with NovoLog 01/11/2018: Patient continues to have hyperglycemia. Continue Humalog sliding scale. Qualifiers: Diabetes mellitus type: type 2 Diabetes mellitus mcfp insulin use: with mcfp use Diabetes mellitus complication status: with neurologic complications Diabetes mellitus complication detail: with polyneuropathy Qualified Code(s): E11.42 - Type 2 diabetes mellitus with diabetic polyneuropathy; Z79.4 - bit sander (current) use of insulin (6) HTN (hypertension) Current Visit: Yes Status: Chronic Assessment and plan: Essential hypertension, controlled, monitor closely Continue home dose of Lopressor, Norvasc Hold Benicar due to DELFINA on CKD 3-4 01/11/2018: Blood pressure is well-controlled. Hemodynamically stable. Continue current medication. Qualifiers: Hypertension type: essential hypertension Qualified Code(s): I10 - Essential (primary) hypertension (7) Thrombocytopenia Current Visit: Yes Status: Chronic Assessment and plan: Chronic thrombocytopenia, stable - possibly contributing to hematoma Monitor closely, repeat labs in a.m. (8) DVT prophylaxis Current Visit: Yes Status: Acute Assessment and plan: SCDs. Avoid anticoagulants due to hematoma - Subjective Interval history: Examined this morning. Patient is awake. Complains of persistent left flank pain and nausea. Rates the pain 6/10. Worse with movement. Describes it as sharp pain. Tolerating clear liquid diet. Patient also complains of abdominal distention and bloating. Renal function is worse this morning. Patient also has slightly worse edema today. Denies chest pain this morning. Complains of shortness of breath. WBC is higher. Low-grade fever. Hemodynamically stable Patient does have hypoxia, and requires supplemental O2. Chest x-ray is concerning for increasing atelectasis and possible right basilar pneumonia. Add IV Rocephin empirically and DuoNeb breathing treatment. Cultures pending. Admitted for left renal supcapsular Hematoma. Patient has received 2 units PRBCs. H&H is currently stable, monitor closely. IR recommends to monitor H&H and blood pressure closely. Continue pain medication. Nephrology has evaluated patient. Repeat CT Abd/Pelvis pending. is at bedside. I have explained to the patient and his regarding his guarded condition and plan of care in detail. They understood and agreed. - Constitutional Vitals: Temp Pulse Resp BP Pulse Ox 101.7 F H 108 18 145/83 97 01/11/18 07:50 01/11/18 07:50 01/11/18 07:50 01/11/18 07:50 01/11/18 07:50 General appearance: Present: cooperative, mild distress, A&O X 3, obese, answers questions appropriately Exam: Generalized weakness. Ill-appearing. Able to provide history. - Head Head exam: Present: atraumatic - Eye Eye exam: Present: EOMI - ENT ENT exam: Present: mucous membranes dry - Respiratory Respiratory exam: Present: decreased breath sounds (Decreased breath sounds in both bases), rhonchi (Mild bilateral) - Cardiovascular Cardiovascular exam: Present: RRR, +S1, +S2 - GI/Abdominal GI/Abdominal exam: Present: distended (Abdomen seems distended and slightly firm. No guarding.), firm, tenderness (Left flank tenderness), no peritoneal signs. Absent: guarding, rebound, soft - Extremities Exam Extremities exam: Present: pedal edema (Bilateral 2+). Absent: calf tenderness Additional comments: Edema of both hands. - Neurological Exam Neurological exam: Present: alert, oriented X3, no focal deficits. Absent: facial droop, speech deficit Internal Medicine: Result - Labs CBC & Chem 7: 01/11/18 07:15 01/11/18 05:40 Labs: Short CBC 01/10/18 01/10/18 01/10/18 Range/Units 16:21 18:51 21:50 WBC (4.3-11.1) K/mcL Hgb 10.5 L 10.1 L 9.9 L (12.9-16.9) g/dL Hct 30.4 L 29.2 L 29.0 L (37.5-50.1) % Plt Count (140-400) K/mcL Neutrophils # (1.6-8.9) K/mcL 01/11/18 01/11/18 Range/Units 05:40 07:15 WBC 25.8 H D (4.3-11.1) K/mcL Hgb 9.7 L 10.1 L (12.9-16.9) g/dL Hct 28.5 L 29.5 L (37.5-50.1) % Plt Count 118 L (140-400) K/mcL Neutrophils # 21.0 H (1.6-8.9) K/mcL BMP 01/10/18 01/11/18 09:24 05:40 Sodium 136 136 Potassium 5.0 Chloride 107 Carbon Dioxide 20 L BUN 76 H Creatinine 4.75 H Glucose 157 H Calcium 8.0 L Cardiac Enzymes 01/10/18 Range/Units 09:24 Troponin I 0.05 H* (< 0.04) ng/mL Liver Function 01/11/18 Range/Units 05:40 Total Bilirubin 2.7 H (0.3-1.0) mg/dL AST 38 (13-39) Units/L ALT 31 (7-52) Units/L Alkaline Phosphatase 80 (34-104) Units/L Albumin 3.2 L (3.5-5.7) g/dL Urine 01/10/18 Range/Units 21:19 Urine Color Dark Yellow (Yellow) Urine Clarity Turbid A (Clear) Urine pH 5.5 (5.0-8.0) pH Units Ur Specific [place] 1.021 (1.010-1.025) Urine Protein 100 H (Neg-Trace) mg/dL Urine Glucose (UA) Normal (Normal) mg/dL - ABG Interpretation ABG results: PT/INR, D-dimer PT 12.8 Seconds (9.4-12.1) H 01/09/18 07:26 - Impressions Impressions Echocardiogram 01/10/18 08:03 Impressions: LVEF 55%. Normal LV chamber size and function. Mild concentric left ventricular hypertrophy. Indeterminate diastolic function. Right ventricle was not well visualized. Atypical septal motion consistent with bundle branch block. No evidence of pulmonary hypertension identified. No significant valvular dysfunction. Left Ventricular Wall Motion: Rest Echo Findings All wall segments showed normal motion. Findings: Study Quality * Technically sub-optimal due to poor echocardiographic windows. ECG Findings * Sinus rhythm with a possible BBB. Left Ventricle * LVEF 55%. * Normal LV chamber size and function. * Mild concentric left ventricular hypertrophy. * Indeterminate diastolic function. * Atypical septal motion consistent noted. Right Ventricle * Right ventricle was not well visualized. Left Atrium * Moderately dilated left atrium. Right Atrium * Mildly dilated right atrium. Aortic Valve * Trileaflet aortic valve with normal function. * No aortic regurgitation. * No aortic stenosis. Mitral Valve * Normal mitral valve structure and function. * No mitral stenosis. * No mitral regurgitation. Tricuspid Valve * Normal tricuspid valve structure and function. * Trace tricuspid regurgitation. * No evidence of pulmonary hypertension identified. Pulmonic Valve * Pulmonic valve is not well visualized. Aorta * Normally sized aortic root. Pericardium * The pericardium appears normal. IVC * Normal IVC dimensions and inspiratory collapse. Pulmonary Artery * Normal visualized portions of the main pulmonary artery. Chest X-Ray 01/11/18 07:50 IMPRESSION: Increasing atelectasis or developing pneumonia in the right perihilar/right lung base region. D/ / 01/11/2018 08:25:51 Aren Soriano MD / arlen Interpreting Provider: Aren Soriano MD - VTE Documentation of Mechanical Device: Intermittent pneumatic compression device Consult Discharge Plan - Plan Referrals: Esequiel Bernstein MD [Primary Care Provider] -
[2018-01-11] MEDS ORDERED: Azithromycin 250 MG in D5% in Water 250 ML IVPB SCH ×2 (10:00→10:15)
[2018-01-11] MEDS: Ipratropium/Albuterol Neb 3 ML IH SCH ×5 (11:30→23:32)
[2018-01-11] MEDS ORDERED: Furosemide 40 MG/4 ML VIAL IVP ONE (12:59)
[2018-01-11] MEDS ORDERED: Furosemide 40 MG/4 ML VIAL ONE (13:00)
[2018-01-11] MEDS ORDERED: Levofloxacin 750 MG/150 ML 750 MG/150 ML BAG IVPB ONE (13:29)
[2018-01-11] MEDS: Insulin DETEMIR 100 UNIT/ML X5UNITS SQ SCH (13:56)
[2018-01-11] MEDS ORDERED: Levofloxacin 750 MG/150 ML 750 MG/150 ML BAG IVPB SCH (14:00)
[2018-01-11] MEDS ORDERED: Vancomycin 1 EACH in 0.9 % Sodium Chloride 250 ML IVPB PRN (14:00)
[2018-01-11 14:26] LABS: Hematocrit 29.6 % (37.5-50.1); Hemoglobin 10.3 g/dL (12.9-16.9)
--- NOTE | 2018-01-11 14:28 | Event Note ---
Date of Encounter: 01/11/18 Time of Encounter: 13:30 Examined patient this afternoon after being called by RN stating the patient was admitted for distress. On examination patient is in mild distress with hypoxia. Seems to fluid overloaded. We will stop IV fluids. IV Lasix 40 mg 1. Monitor output closely. Start BiPAP because patient is hypoxic. Heart: S1-S2 positive, no murmurs. Lungs: b/l mild rales. Abdomen: distended, slightly firm. Ext: edema in b/l lower legs and both arms Neuro: awake, able to follow verbal commands, able to move extremities Hemodynamically stable. Temperature - 101.7 Keep patient NPO except meds. Add IV Levaquin, IV Vancomycin. Continue IV Rocephin, DuoNeb breathing treatment Differntial Dx includes acute PE. He cannot receive IV contrast due to severe DELFINA. May need V/Q scan when he is Even if patient does have PE, we may not be able to start anticoagulation due to large left renal hematoma. Chest x-ray - significant for atelectasis and right basilar pneumonia CT Abd/Pelvis (01/11/2018) - stable large left renal subcapsular hematoma, left perinephric hemorrhage, no significant change, no acute bowel abnormality Nephrology following, appreciate input. Monitor renal function closely. May need HD renal function worsens. Continue current management. May need transfer to ICU or step-down unit if patient is clinically worse. Patient and family including his have been explained about patient's guarded condition and guarded prognosis. They understood and agreed. CODE STATUS full code.
--- NOTE | 2018-01-11 15:20 | Nephrology Progress Note ---
Date of Encounter: 01/11/18 Time of Encounter: 14:00 - Assessment and Plan (1) DELFINA (acute kidney injury) Current Visit: Yes Status: Acute SCrcontinues to worsen at 4.75, GFR 12 s/p hematoma/bleeding after renal biopsy Hemodynamics currently stable Agree with stopping IVF due to resp. distress No acute indication for PANEL CUTTER just yet but concerning if no iprovement by tomorrow. aware and open to this Avoid all nephrotoxins if possible (2) Kidney hematoma Current Visit: Yes Status: Acute post biopsy, third repeat CT stable Continue serial hgb checks but stable at 10.3 lastest IR on standby Qualifiers: Encounter type: subsequent encounter Laterality: left Qualified Code(s): S37.012D - Minor contusion of left kidney, subsequent encounter (3) Stage 4 chronic kidney disease Current Visit: Yes Status: Chronic prelim biopsy results shows diabetic nephropathy with some HTN component (4) Respiratory failure with hypoxia Current Visit: Yes Status: Acute Likely due to developing PNA, continue abx per primary team Qualifiers: Chronicity: acute Qualified Code(s): J96.01 - Acute respiratory failure with hypoxia Subjective Interval history: Interim events noted,m pt seen and examined on cPAP and appears comfortable. Family: , daughter, son in law and son present by the bedside. Discussed at length goals of care and the possibility of PANEL CUTTER if no renal improvement soon. Reviewed CXR, third CT results as well and answered all questions. Objective - Vital Signs Vital signs: Vital Signs Temp Pulse Resp BP Pulse Ox 01/11/18 13:00 16 115/70 96 01/11/18 12:58 91 30 115/70 87 01/11/18 11:30 20 115/70 90 01/11/18 07:50 101.7 F H 108 18 145/83 97 01/11/18 04:01 98.4 F 98 88 132/73 01/11/18 00:14 100.0 F H 95 18 123/65 90 01/10/18 18:24 98.5 F 109 16 149/76 95 01/10/18 16:53 98.5 F 105 19 152/72 90 Intake and Output 01/10/18 01/11/18 01/11/18 23:59 07:59 15:59 Intake Total 1130 / 1130 1000 / 1000 0 / 0 Output Total 450 / 450 125 / 125 Balance 680 / 680 1000 / 1000 -125 / -125 Intake: IV Fluids 980 / 980 850 / 850 0 / 0 0.9 % Sodium Chloride 1,000 ML 980 / 980 850 / 850 0 / 0 @ 80 mls/hr IVC .[id number] [facility] Rx #:[id number] Oral 150 / 150 150 / 150 Output: Urine 450 / 450 125 / 125 Other: # Voids 1 1 Weight 103 kg Blood Glucose* 151 154 188 Patient Weight 01/11/18 23:59 Weight 103 kg - General Appearance General appearance: Present: moderate distress (on cPAP now comfortable) EENT: Present: ATNC, mucous membranes moist Neck: Present: no JVD, supple Additional Comments: good areation ant bilat Cardiology: Present: edema (UE/LE bilat), normal S1, normal S2 Gastrointestinal: Present: no tenderness, no guarding, obese Integumentary: Present: warm and dry Neurologic: Present: no focal deficit Musculoskeletal: Present: no deformities Psychiatric: Present: mood/affect appropriate, cooperative - Lab 01/11/18 14:04 01/11/18 05:40 Most recent lab results Calcium 8.0 mg/dL (8.6-10.3) L 01/11/18 05:40 Urine Creatinine 150 mg/dL 01/11/18 07:30 - VTE Documentation of Mechanical Device: Intermittent pneumatic compression device Consult Discharge Plan - Plan Referrals: Esequiel Bernstein MD [Primary Care Provider] -
[2018-01-11 20:53] LABS: Hematocrit 27.3 % (37.5-50.1); Hemoglobin 9.3 g/dL (12.9-16.9)
[2018-01-12] MEDS: Insulin DETEMIR 100 UNIT/ML X5UNITS SQ SCH ×3 (00:29→20:33)
[2018-01-12] MEDS: *HR* HYDROcodone/Acet 7.5/325 mg TABLET PO PRN ×2 (00:34→20:33)
[2018-01-12] MEDS: Insulin LISPRO 300 UNITS/3 ML VIAL SQ SCH ×4 (00:35→17:24)
[2018-01-12 03:37] LABS: Basophils % 0.1 %; Eosinophils % 0.1 %; Hematocrit 26.4 % (37.5-50.1); Hemoglobin 9.1 g/dL (12.9-16.9); Lymphocytes % 5.4 %; Mean Corpuscular HGB Conc 34.5 g/dL (31.6-35.5); Mean Corpuscular Hemoglobin 31.5 pg (28.0-33.3); Mean Corpuscular Volume 91.3 fL (83.0-100.0); Monocytes # 1.6 K/mcL (0.0-1.3); Monocytes % 8.5 %; Red Blood Count 2.89 M/mcL (4.19-5.50); Red Cell Distribution Width 14.7 % (11.5-14.5); Segmented Neutrophils % 82.9 %
[2018-01-12 03:39] LABS: Neutrophils # 15.4 K/mcL (1.6-8.9); Platelet Count 99 K/mcL (140-400)
[2018-01-12 03:57] LABS: Albumin/Globulin Ratio 1.3 (1.1-2.2); Calcium 7.7 mg/dL (8.6-10.3); Globulin 2.4 g/dL (2.4-3.5); Potassium 4.6 mEq/L (3.5-5.1); Total Protein 5.4 g/dL (6.4-8.9)
[2018-01-12] MEDS: Ipratropium/Albuterol Neb 3 ML IH SCH ×6 (04:03→23:03)
[2018-01-12] MEDS: Pantoprazole 40 MG VIAL IVP SCH (08:43)
[2018-01-12] MEDS: Multivit/Ca/Min/Fe/FA 1 TAB TABLET PO SCH (08:43)
[2018-01-12] MEDS: Cholecalciferol (D-3) 1,000 UNIT TABLET PO SCH (08:43)
[2018-01-12] MEDS: cefTRIAXone 1,000 MG in Water for inj. (sterile) 20 ML 10 ML IVP SCH (08:43)
[2018-01-12] MEDS ORDERED: Aminoglycoside Consult 1 EACH MC ONE (08:53)
[2018-01-12 10:00] LABS: Hematocrit 27.5 % (37.5-50.1); Hemoglobin 9.3 g/dL (12.9-16.9)
[2018-01-12] MEDS ORDERED: Ipratropium/Albuterol Neb 3 ML ONE (11:12)
[2018-01-12] MEDS: Ondansetron 4 MG/2 ML VIAL IVP PRN (11:54)
[2018-01-12] MEDS ORDERED: Levofloxacin 500 MG/100 ML 500 MG/100 ML BAG IVPB SCH (14:00)
--- NOTE | 2018-01-12 14:55 | Electrocardiograph Report ---
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
[2018-01-12] MEDS: Acetaminophen 325 MG TABLET PO PRN (15:07)
[2018-01-12] MEDS: Azithromycin 500 MG in D5% in Water 250 ML IVPB SCH (15:07)
--- NOTE | 2018-01-12 16:05 | Nephrology Progress Note ---
Date of Encounter: 01/12/18 Time of Encounter: 10:30 - Assessment and Plan (1) Stage 4 chronic kidney disease Current Visit: Yes Status: Chronic SCrcontinues to worsen at 5.69, GFR 12 s/p hematoma/bleeding after renal biopsy. prelim biopsy results shows diabetic nephropathy with some HTN component Hemodynamics currently stable on BIPAP H/H downtrending but >9.0. Will consider temporary HD catheter if kidney function continues to worsen. Avoid all nephrotoxins if possible Strict I/Os Will recheck AM labs. (2) Kidney hematoma Current Visit: Yes Status: Acute post biopsy, third repeat CT stable Continue serial hgb checks but stable at 9.0 lastest Spoke with IR on the phone, they recommend close monitoring of H/H. Patient to start Renal diet. Qualifiers: Encounter type: subsequent encounter Laterality: left Qualified Code(s): S37.012D - Minor contusion of left kidney, subsequent encounter (3) Respiratory failure with hypoxia Current Visit: Yes Status: Acute Likely due to developing PNA, continue abx per primary team (2) Kidney hematoma Current Visit: Yes Status: Acute Qualifiers: Encounter type: subsequent encounter Laterality: left Qualified Code(s): S37.012D - Minor contusion of left kidney, subsequent encounter Subjective Principal diagnosis: hematoma s/p left kidney biopsy Interval history: Patient was in respiratory distress with hypoxia over the weekend requiring BIPAP. He is feeling more fatigue and nauseous, but breathing has improved on BIPAP right now. Family at bedside requesting IR to see him as he has been NPO since last and they do not know the plan. His urine production also decreased over the weekend and they believe it is due to the lack of PO intake. He now has straight catheter in him. He has not had a bowel movement either. Denies fever, chills, chest pain, palpitations. Worsening weakness and has not been able to ambulate out of bed. Patient is hungry and irritable. Objective - Vital Signs Vital signs: Vital Signs Temp Pulse Resp BP Pulse Ox 01/12/18 11:35 100.7 F H 85 21 143/79 96 01/12/18 11:08 20 92 01/12/18 07:52 98.9 F 90 19 132/76 97 01/12/18 04:03 24 97 01/12/18 03:38 99.1 F 76 19 110/68 98 01/11/18 23:32 20 97 01/11/18 23:19 99.5 F 77 18 115/71 96 01/11/18 20:15 25 98 01/11/18 18:42 101.2 F H 94 18 144/73 01/11/18 16:30 97.9 F 91 20 125/65 96 Intake and Output 01/12/18 01/12/18 01/12/18 07:59 15:59 23:59 Intake Total 525 / 525 Output Total 900 / 900 350 / 350 Balance -375 / -375 -350 / -350 Intake: Oral 525 / 525 Output: Catheter 900 / 900 350 / 350 Other: Blood Glucose* 158 157 - General Appearance General appearance: Present: appears started age, moderate distress, fatigue Additional Comments: Patient is on BIPAP, regular rate, CTAB Neck: Present: no JVD, no carotid bruit Respiratory: Present: clear, course breath sounds Cardiology: Present: no murmurs, no rub, no gallops, no edema, regular rate, regular rhythm, normal S1, normal S2 Gastrointestinal: Present: normoactive bowel sounds, no tenderness, no masses Integumentary: Present: warm and dry Neurologic: Present: alert and oriented x3 Musculoskeletal: Present: no erythema, no cyanosis, no clubbing Psychiatric: Present: mood/affect appropriate, cooperative - Lab 01/12/18 15:53 01/12/18 03:07 Most recent lab results Calcium 7.7 mg/dL (8.6-10.3) L 01/12/18 03:07 Magnesium 2.0 mg/dL (1.6-2.6) 01/12/18 03:07 Urine Creatinine 150 mg/dL 01/11/18 07:30 Urine Sodium 53.8 mEq/L 01/11/18 16:10 - VTE Documentation of Mechanical Device: Intermittent pneumatic compression device Consult Discharge Plan - Plan Referrals: Esequiel Bernstein MD [Primary Care Provider] -
[2018-01-12 16:42] LABS: Hematocrit 26.6 % (37.5-50.1)
[2018-01-13] MEDS: 0.9 % Sodium Chloride 1,000 ML IVC SCH (00:15)
[2018-01-13] MEDS: Insulin LISPRO 300 UNITS/3 ML VIAL SQ SCH ×5 (00:15→18:05)
[2018-01-13] MEDS: Ipratropium/Albuterol Neb 3 ML IH SCH ×6 (03:16→23:34)
[2018-01-13 04:49] LABS: Hematocrit 25.7 % (37.5-50.1); Hemoglobin 8.7 g/dL (12.9-16.9); Mean Corpuscular HGB Conc 33.9 g/dL (31.6-35.5); Mean Corpuscular Hemoglobin 30.3 pg (28.0-33.3); Mean Corpuscular Volume 89.5 fL (83.0-100.0); Platelet Count 126 K/mcL (140-400); Red Blood Count 2.87 M/mcL (4.19-5.50); Red Cell Distribution Width 14.6 % (11.5-14.5)
[2018-01-13 05:10] LABS: Calcium 7.8 mg/dL (8.6-10.3); Potassium 4.6 mEq/L (3.5-5.1)
[2018-01-13] MEDS: Multivit/Ca/Min/Fe/FA 1 TAB TABLET PO SCH (09:27)
[2018-01-13] MEDS: *HR* HYDROcodone/Acet 7.5/325 mg TABLET PO PRN (09:27)
[2018-01-13] MEDS: cefTRIAXone 1,000 MG in Water for inj. (sterile) 20 ML 10 ML IVP SCH (09:28)
[2018-01-13] MEDS: Cholecalciferol (D-3) 1,000 UNIT TABLET PO SCH (09:29)
[2018-01-13] MEDS: Insulin DETEMIR 100 UNIT/ML X5UNITS SQ SCH ×2 (09:46→22:15)
[2018-01-13] MEDS ORDERED: 0.9 % Sodium Chloride 250 ML IVC PRN (11:10)
[2018-01-13] MEDS ORDERED: *HR* Heparin 10,000 UNIT/10 ML VIAL IV PRN (11:10)
[2018-01-13] MEDS ORDERED: 0.9 % Sodium Chloride 1,000 ML PRIME SCH (11:15)
[2018-01-13] MEDS ORDERED: *HR* Heparin 5,000 UNIT/ML VIAL ONE (12:44)
[2018-01-13] MEDS ORDERED: 0.9 % Sodium Chloride 500 ML ONE (12:44)
[2018-01-13 13:25] LABS: Hepatitis B Surface Antigen Nonreactive (Nonreactive)
[2018-01-13] MEDS: Acetaminophen 325 MG TABLET PO PRN (13:26)
--- NOTE | 2018-01-13 14:00 | Nephrology Progress Note ---
Date of Encounter: 01/13/18 Time of Encounter: 14:30 - Assessment and Plan (1) Stage 4 chronic kidney disease Current Visit: Yes Status: Chronic SCrcontinues to worsen at 5.84, GFR 12 s/p hematoma after renal biopsy. prelim biopsy results shows diabetic nephropathy with some HTN component Hemodynamics currently stable on BIPAP. He will undergo HD this afternoon. H/H downtrending. Will consider repeat imaging if Hb < 8 tomorrow. Avoid all nephrotoxins if possible Strict I/Os Will recheck AM labs. (2) Kidney hematoma Current Visit: Yes Status: Acute post biopsy, third repeat CT stable Hb continues to drop. If hb < 8 tomorrow AM, will repeat imaging of kidneys. Qualifiers: Encounter type: subsequent encounter Laterality: left Qualified Code(s): S37.012D - Minor contusion of left kidney, subsequent encounter (3) Respiratory failure with hypoxia Current Visit: Yes Status: Acute Likely due to developing PNA, continue abx per primary team Subjective Principal diagnosis: hematoma s/p left kidney biopsy Interval history: Patient continues to be on BIPAP for respiratory distress. temporary port for HD was place without complicated this AM. He is getting ready for hemodialysis during my visit. at bedside does not have any questions. He denies abdominal pain, nausea, vomiting, but continues have complaints of worsening weakness. Straight cath with tea colored urine. Objective - Vital Signs Vital signs: Vital Signs Temp Pulse Resp BP Pulse Ox 01/13/18 12:06 100.4 F H 73 20 112/65 94 01/13/18 11:35 20 94 01/13/18 07:43 99.8 F H 82 20 121/68 95 01/13/18 07:36 20 94 01/13/18 04:22 98.4 F 79 20 123/65 93 01/13/18 03:16 23 94 01/13/18 00:53 99.8 F H 87 21 130/78 94 01/12/18 23:03 22 94 01/12/18 20:14 100.1 F H 103 19 135/73 93 01/12/18 19:46 21 91 01/12/18 16:33 17 120/68 94 01/12/18 16:18 99.6 F 86 20 120/68 92 Intake and Output 01/12/18 01/13/18 01/13/18 23:59 07:59 15:59 Intake Total 110 / 110 360 / 360 Output Total 325 / 325 550 / 550 Balance 110 / 110 -325 / -325 -190 / -190 Intake: IV Fluids Rocephin 1,000 MG In Water for inj. (sterile) 10 ML @ 600 mls/ hr IVP Q24H ADRIAN Rx#:[id number] Oral 100 / 100 360 / 360 Output: Catheter 325 / 325 550 / 550 Other: Meal Lunch Percent of Meal Consumed 25% Stool Size Moderate Stool Consistency loose Stool Characteristics Normal for Patient Stool Color Brown Weight 107.5 kg Blood Glucose* 185 174 185 Patient Weight 01/13/18 23:59 Weight 107.5 kg - General Appearance Exam: Neck: Present: no JVD, no carotid bruit Respiratory: Present: clear, course breath sounds. Current on BIPAP Cardiology: Present: no murmurs, no rub, no gallops, no edema, regular rate, regular rhythm, normal S1, normal S2 Gastrointestinal: Present: normoactive bowel sounds, no tenderness, no masses Integumentary: Present: warm and dry Neurologic: Present: alert and oriented x3 Musculoskeletal: Present: no erythema, no cyanosis, no clubbing Psychiatric: Present: mood/affect appropriate, cooperative - Lab 01/13/18 04:16 01/13/18 04:16 Most recent lab results Calcium 7.8 mg/dL (8.6-10.3) L 01/13/18 04:16 Magnesium 2.0 mg/dL (1.6-2.6) 01/12/18 03:07 Urine Creatinine 150 mg/dL 01/11/18 07:30 Urine Sodium 53.8 mEq/L 01/11/18 16:10 - VTE Documentation of Mechanical Device: Intermittent pneumatic compression device Consult Discharge Plan - Plan Referrals: Esequiel Bernstein MD [Primary Care Provider] -
[2018-01-13] MEDS: Ondansetron 4 MG/2 ML VIAL IVP PRN (18:04)
[2018-01-13] MEDS: Azithromycin 500 MG in D5% in Water 250 ML IVPB SCH (18:04)
--- NOTE | 2018-01-13 20:36 | Internal Med Progress Note ---
Hospitalist Progress Note - Encounter Date of Encounter: 01/13/18 Time of Encounter: 15:10 - Subjective Interval History: Patient was seen and examined bedside - Exam Vitals: Temp Pulse Resp BP Pulse Ox 100.4 F H 73 25 151/70 94 01/13/18 17:15 01/13/18 12:06 01/13/18 19:40 01/13/18 17:15 01/13/18 19:40 Exam: Skin: Free of rash and discoloration. ENMT: Oral/pharyngeal mucosa is normal in appearance. Eyes: Sclera is white. There is no discharge from eyes. Respiratory: Normal breath sounds; no crackles or wheezes. CV: Heart is regular; no gallop or murmur. GI: Abdomen is soft and not tender. There is no palpable mass or visceromegaly. : There is tenderness in the area of left flank. Neuro: There is no focal deficits. - Assessment and Plan (1) Kidney hematoma Current Visit: Yes Status: Acute Assessment and Plan: post biopsy, third repeat CT stable. May repeat imaging of kidneys if Hb drops (2) CKD (chronic kidney disease) stage 3, GFR 30-59 ml/min Current Visit: Yes Status: Chronic Assessment and Plan: s/p hematoma after renal biopsy. 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 biopsy results shows diabetic nephropathy with some HTN component. s/p temporary port this AM. HD this afternoon. Hemodynamics currently stable on BIPAP. (3) PNA (pneumonia) Current Visit: Yes Status: Acute Assessment and Plan: Continue Ceftrixone and Azithromycin. DVT Prophylaxis: Intermittent pneumatic compression device - Time Spent with Patient Total time spent is greater than 50% in coordination of care (as documented) at patient's floor/unit and/or counseling patient: Internal Medicine: Result - Labs CBC & Chem 7: 01/14/18 05:26 01/14/18 05:26 Labs: Short CBC 01/13/18 Range/Units 04:16 WBC 15.4 H (4.3-11.1) K/mcL Hgb 8.7 L (12.9-16.9) g/dL Hct 25.7 L (37.5-50.1) % Plt Count 126 L (140-400) K/mcL BMP 01/13/18 04:16 Sodium 131 L Potassium 4.6 Chloride 100 Carbon Dioxide 20 L BUN 107 H Creatinine 5.84 H Glucose 178 H Calcium 7.8 L - ABG Interpretation ABG results: PT/INR, D-dimer PT 12.8 Seconds (9.4-12.1) H 01/09/18 07:26 - Impressions Impressions Guidance Ultrasound 01/13/18 00:00 IMPRESSION: Successful ultrasound guided non-tunneled hemodialysis catheter placement. D/ / Robert Maxwell MD / Robert Maxwell MD Interpreting Provider: Robert Maxwell MD Insertion Non-Tunneled Catheter 01/13/18 00:00 IMPRESSION: Successful ultrasound guided non-tunneled hemodialysis catheter placement. D/ / Robert Maxwell MD / Robert Maxwell MD Interpreting Provider: Robert Maxwell MD Chest X-Ray 01/13/18 13:03 IMPRESSION: 1. Right internal jugular vein temporary dialysis catheter placement with no immediate complications. 2. Otherwise, stable chest x-ray with increased density involving the lower lung zones representing atelectasis and/or infiltrate. D/ / Markus Verma MD / Markus Verma MD Interpreting Provider: Markus Verma MD - VTE Documentation of Mechanical Device: Intermittent pneumatic compression device Consult Discharge Plan - Plan Referrals: Esequiel Bernstein MD [Primary Care Provider] - (1) Kidney hematoma Qualifiers: Encounter type: subsequent encounter Laterality: left Qualified Code(s): S37.012D - Minor contusion of left kidney, subsequent encounter (3) PNA (pneumonia) Qualifiers: Pneumonia type: due to unspecified organism Laterality: right Lung location : lower lobe of lung Qualified Code(s): J18.1 - Lobar pneumonia, unspecified organism
[2018-01-13] MEDS ORDERED: Ondansetron 4 MG/2 ML VIAL IVP ONE (21:22)
[2018-01-14] MEDS: Insulin LISPRO 300 UNITS/3 ML VIAL SQ SCH ×4 (00:44→18:30)
[2018-01-14] MEDS: Ondansetron 4 MG/2 ML VIAL IVP PRN ×2 (01:58→08:41)
[2018-01-14] MEDS: Ipratropium/Albuterol Neb 3 ML IH SCH ×6 (03:56→23:22)
--- NOTE | 2018-01-14 04:32 | Internal Med Progress Note ---
Hospitalist Progress Note - Encounter Date of Encounter: 01/12/18 Time of Encounter: 19:00 - Exam Vitals: Temp Pulse Resp BP Pulse Ox 98.4 F 78 27 117/70 93 01/14/18 00:06 01/14/18 00:06 01/14/18 00:44 01/14/18 00:06 01/14/18 00:44 Exam: xxx - Assessment and Plan (1) Kidney hematoma Current Visit: Yes Status: Acute (2) DELFINA (acute kidney injury) Current Visit: Yes Status: Acute (3) Hypertensive renal disease with renal failure Current Visit: Yes Status: Chronic (4) Type 2 diabetes mellitus Current Visit: Yes Status: Acute (5) PNA (pneumonia) Current Visit: Yes Status: Acute (6) Respiratory failure with hypoxia Current Visit: Yes Status: Acute - Summary of Assessment and Plan Summary of Assessment and Plan: SUBJECTIVE: The patient feels weak and tired. He does have mild cough but not wheezing. Denies chest pain. Denies abdominal pain. He does have mild/moderate pain in the area of left flank. [place] catheter is inserted. It is draining fair amounts of urine. OBJECTIVE: Skin: Free of rash and discoloration. ENMT: Oral/pharyngeal mucosa is normal in appearance. Eyes: Sclera is white. There is no discharge from eyes. Respiratory: Normal breath sounds; no crackles or wheezes. CV: Heart is regular; no gallop or murmur. GI: Abdomen is soft and not tender. There is no palpable mass or visceromegaly. : There is tenderness in the area of left flank. Neuro: There is no focal deficits. ASSESSMENT AND PLAN: This patient has recently developed a kidney hematoma secondary to left kidney biopsy. Interventional radiology is on consult. Renal service is on consult. No drainage at this point. Acute kidney injury on top of CKD stage III. See notes from nephrology. They are considering her hemodialysis for this patient. Hypertensive renal disease with renal failure. Blood pressure is under control. We will continue Lopressor. Type 2 diabetes mellitus with diabetic nephropathy. We will continue diabetic diet, Levemir and when necessary Humalog. Pneumonia with acute hypoxic respiratory failure. He is treated with IV vancomycin/IV Rocephin/IV Levaquin. We will stop IV vancomycin. We will substituted IV Levaquin with IV Zithromax. The patient is getting supplemental oxygen and BiPAP treatments. - Time Spent with Patient Total time spent is greater than 50% in coordination of care (as documented) at patient's floor/unit and/or counseling patient: 25 - 35 minutes Plan of Care Discussed with: patient Internal Medicine: Result - Labs CBC & Chem 7: 01/13/18 04:16 01/13/18 04:16 Labs: Short CBC 01/13/18 Range/Units 04:16 WBC 15.4 H (4.3-11.1) K/mcL Hgb 8.7 L (12.9-16.9) g/dL Hct 25.7 L (37.5-50.1) % Plt Count 126 L (140-400) K/mcL BMP 01/13/18 04:16 Sodium 131 L Potassium 4.6 Chloride 100 Carbon Dioxide 20 L BUN 107 H Creatinine 5.84 H Glucose 178 H Calcium 7.8 L - ABG Interpretation ABG results: PT/INR, D-dimer PT 12.8 Seconds (9.4-12.1) H 01/09/18 07:26 - Impressions Impressions Guidance Ultrasound 01/13/18 00:00 IMPRESSION: Successful ultrasound guided non-tunneled hemodialysis catheter placement. D/ / Robert Maxwell MD / Robert Maxwell MD Interpreting Provider: Robert Maxwell MD Insertion Non-Tunneled Catheter 01/13/18 00:00 IMPRESSION: Successful ultrasound guided non-tunneled hemodialysis catheter placement. D/ / Robert Maxwell MD / Robert Maxwell MD Interpreting Provider: Robert Maxwell MD Chest X-Ray 01/13/18 13:03 IMPRESSION: 1. Right internal jugular vein temporary dialysis catheter placement with no immediate complications. 2. Otherwise, stable chest x-ray with increased density involving the lower lung zones representing atelectasis and/or infiltrate. D/ / Markus Verma MD / Markus Verma MD Interpreting Provider: Markus Verma MD - VTE Documentation of Mechanical Device: Intermittent pneumatic compression device Consult Discharge Plan - Plan Referrals: Esequiel Bernstein MD [Primary Care Provider] - (1) Kidney hematoma Qualifiers: Encounter type: subsequent encounter Laterality: left Qualified Code(s): S37.012D - Minor contusion of left kidney, subsequent encounter (4) Type 2 diabetes mellitus Qualifiers: Diabetes mellitus trade show specialist insulin use: with trade show specialist use Diabetes mellitus complication status: with kidney complications Diabetes mellitus complication detail: with chronic kidney disease Chronic kidney disease stage: stage 3 (moderate) Qualified Code(s): E11.22 - Type 2 diabetes mellitus with diabetic chronic kidney disease; N18.3 - Chronic kidney disease, stage 3 ( moderate); Z79.4 - care home (current) use of insulin (5) PNA (pneumonia) Qualifiers: Pneumonia type: due to unspecified organism Laterality: right Lung location : lower lobe of lung Qualified Code(s): J18.1 - Lobar pneumonia, unspecified organism (6) Respiratory failure with hypoxia Qualifiers: Chronicity: acute Qualified Code(s): J96.01 - Acute respiratory failure with hypoxia
[2018-01-14] MEDS ORDERED: *HR* Promethazine 25 MG/ML VIAL IVP PRN (04:36)
[2018-01-14 05:49] LABS: Hematocrit 26.8 % (37.5-50.1); Hemoglobin 9.2 g/dL (12.9-16.9); Mean Corpuscular HGB Conc 34.3 g/dL (31.6-35.5); Mean Corpuscular Hemoglobin 31.3 pg (28.0-33.3); Mean Corpuscular Volume 91.2 fL (83.0-100.0); Mean Platelet Volume 10.2 fL (9.4-12.4); Platelet Count 128 K/mcL (140-400); Red Blood Count 2.94 M/mcL (4.19-5.50); Red Cell Distribution Width 14.6 % (11.5-14.5)
[2018-01-14 06:12] LABS: Calcium 7.7 mg/dL (8.6-10.3); Potassium 4.3 mEq/L (3.5-5.1)
[2018-01-14] MEDS ORDERED: 0.9 % Sodium Chloride 250 ML IVC PRN (06:54)
[2018-01-14] MEDS ORDERED: *HR* Heparin 10,000 UNIT/10 ML VIAL IV PRN (06:54)
[2018-01-14] MEDS ORDERED: 0.9 % Sodium Chloride 1,000 ML PRIME SCH (07:00)
[2018-01-14] MEDS ORDERED: *HR* LORazepam 0.5 MG TABLET PO ONE (08:02)
--- NOTE | 2018-01-14 08:11 | Internal Med Progress Note ---
Hospitalist Progress Note - Encounter Date of Encounter: 01/14/18 Time of Encounter: 08:11 - Subjective Interval History: Patient was seen and examined bedside. Feels angious and worried about being on dialysis. did not need bipap overnight. Breathing better. - Exam Vitals: Temp Pulse Resp BP Pulse Ox 99.8 F H 80 22 147/73 92 01/14/18 07:17 01/14/18 07:17 01/14/18 07:17 01/14/18 07:17 01/14/18 07:17 Exam: Skin: Free of rash and discoloration. ENMT: Oral/pharyngeal mucosa is normal in appearance. Eyes: Sclera is white. There is no discharge from eyes. Respiratory: Normal breath sounds; no crackles or wheezes. CV: Heart is regular; no gallop or murmur. GI: Abdomen is soft and not tender. There is no palpable mass or visceromegaly. : There is tenderness in the area of left flank. Neuro: There is no focal deficits. Pedal edema present Rt IJ dialysis access - Assessment and Plan (1) Kidney hematoma Current Visit: Yes Status: Acute Assessment and Plan: post biopsy, third repeat CT stable. Stable Hb. Will consider imaging if Hb drops. (2) CKD (chronic kidney disease) stage 3, GFR 30-59 ml/min Current Visit: Yes Status: Chronic Assessment and Plan: s/p hematoma after renal biopsy. biopsy results shows diabetic nephropathy with some HTN component. s/p temporary port. another session of HD today.. (3) PNA (pneumonia) Current Visit: Yes Status: Acute Assessment and Plan: Continue Ceftrixone and Azithromycin. Will switch to oral abx tommorrow. DVT Prophylaxis: Intermittent pneumatic compression device - Time Spent with Patient Total time spent is greater than 50% in coordination of care (as documented) at patient's floor/unit and/or counseling patient: Internal Medicine: Result - Labs CBC & Chem 7: 01/14/18 05:26 01/14/18 05:26 Labs: Short CBC 01/14/18 Range/Units 05:26 WBC 13.4 H (4.3-11.1) K/mcL Hgb 9.2 L (12.9-16.9) g/dL Hct 26.8 L (37.5-50.1) % Plt Count 128 L (140-400) K/mcL BMP 01/14/18 05:26 Sodium 134 L Potassium 4.3 Chloride 101 Carbon Dioxide 21 L BUN 92 H Creatinine 4.93 H Glucose 144 H Calcium 7.7 L - ABG Interpretation ABG results: PT/INR, D-dimer PT 12.8 Seconds (9.4-12.1) H 01/09/18 07:26 - Impressions Impressions Guidance Ultrasound 01/13/18 00:00 IMPRESSION: Successful ultrasound guided non-tunneled hemodialysis catheter placement. D/ / Robert Maxwell MD / Robert Maxwell MD Interpreting Provider: Robert Maxwell MD Insertion Non-Tunneled Catheter 01/13/18 00:00 IMPRESSION: Successful ultrasound guided non-tunneled hemodialysis catheter placement. D/ / Robert Maxwell MD / Robert Maxwell MD Interpreting Provider: Robert Maxwell MD Chest X-Ray 01/13/18 13:03 IMPRESSION: 1. Right internal jugular vein temporary dialysis catheter placement with no immediate complications. 2. Otherwise, stable chest x-ray with increased density involving the lower lung zones representing atelectasis and/or infiltrate. D/ / Markus Verma MD / Markus Verma MD Interpreting Provider: Markus Verma MD - VTE Documentation of Mechanical Device: Intermittent pneumatic compression device Consult Discharge Plan - Plan Referrals: Esequiel Bernstein MD [Primary Care Provider] - (1) Kidney hematoma Qualifiers: Encounter type: subsequent encounter Laterality: left Qualified Code(s): S37.012D - Minor contusion of left kidney, subsequent encounter (3) PNA (pneumonia) Qualifiers: Pneumonia type: due to unspecified organism Laterality: right Lung location : lower lobe of lung Qualified Code(s): J18.1 - Lobar pneumonia, unspecified organism
[2018-01-14] MEDS: Cholecalciferol (D-3) 1,000 UNIT TABLET PO SCH (08:39)
[2018-01-14] MEDS: *HR* HYDROcodone/Acet 7.5/325 mg TABLET PO PRN ×2 (08:39→18:24)
[2018-01-14] MEDS: Multivit/Ca/Min/Fe/FA 1 TAB TABLET PO SCH (08:40)
[2018-01-14] MEDS: Insulin DETEMIR 100 UNIT/ML X5UNITS SQ SCH ×2 (08:43→20:24)
[2018-01-14] MEDS: cefTRIAXone 1,000 MG in Water for inj. (sterile) 20 ML 10 ML IVP SCH (13:32)
[2018-01-14] MEDS: Azithromycin 500 MG in D5% in Water 250 ML IVPB SCH (17:12)
--- NOTE | 2018-01-14 20:01 | Nephrology Progress Note ---
Date of Encounter: 01/14/18 Time of Encounter: 19:59 - Assessment and Plan (1) DELFINA (acute kidney injury) Current Visit: Yes Status: Acute SCrcontinues to worsen s/p hematoma/bleeding after renal biopsy Likely Page Kidney Hemodynamics currently stable Agree with stopping IVF due to resp. distress Patient started HD 01/13 Patient seen on dialysis today and feels better. Avoid all nephrotoxins if possible (2) Kidney hematoma Current Visit: Yes Status: Acute post biopsy, third repeat CT stable Continue serial hgb checks IR aware Qualifiers: Encounter type: subsequent encounter Laterality: left Qualified Code(s): S37.012D - Minor contusion of left kidney, subsequent encounter (3) Stage 4 chronic kidney disease Current Visit: Yes Status: Chronic prelim biopsy results shows diabetic nephropathy with some HTN component (4) Respiratory failure with hypoxia Current Visit: Yes Status: Acute Likely due to developing PNA, continue abx per primary team Qualifiers: Chronicity: acute Qualified Code(s): J96.01 - Acute respiratory failure with hypoxia Subjective Principal diagnosis: hematoma s/p left kidney biopsy Interval history: Patient seen while on dialysis. He feels much better with less dyspnea. He still has bipap on, but wants to try to have it removed today. Objective - Vital Signs Vital signs: Vital Signs Temp Pulse Resp BP Pulse Ox 01/14/18 19:19 99.7 F H 90 18 121/66 94 01/14/18 15:22 16 92 01/14/18 12:04 98.0 F 20 138/68 01/14/18 11:56 18 91 01/14/18 11:25 124/62 01/14/18 11:10 126/62 01/14/18 10:55 122/61 01/14/18 10:40 121/66 01/14/18 10:25 115/69 01/14/18 10:10 122/65 01/14/18 09:55 122/63 01/14/18 09:40 101/47 01/14/18 09:25 119/58 01/14/18 09:10 118/82 01/14/18 08:55 98.6 F 18 141/63 01/14/18 07:34 18 93 01/14/18 07:17 99.8 F H 80 22 147/73 92 01/14/18 03:55 99.5 F 85 24 108/56 93 01/14/18 00:44 27 93 01/14/18 00:06 98.4 F 78 20 117/70 86 01/13/18 20:50 99.2 F 90 21 126/70 89 Intake and Output 01/14/18 01/14/18 01/14/18 07:59 15:59 23:59 Intake Total 600 / 600 Output Total 350 / 350 1600 / 1600 Balance -350 / -350 -1000 / -1000 Intake: Oral 0 / 0 Intake, Rinseback and Flushes 600 / 600 Output: Urine 0 / 0 Total Dialysis (HD) Output 1600 / 1600 Catheter 350 / 350 Other: Meal Breakfast Percent of Meal Consumed 0% Stool Size Moderate Stool Consistency loose Stool Characteristics Normal for Patient Stool Color Brown Weight 106.8 kg Blood Glucose* 146 145 363 Hemodialysis Net Fluid Removed 1000 (mL) Patient Weight 01/14/18 23:59 Weight 106.8 kg - General Appearance General appearance: Present: well-developed EENT: Present: ATNC Neck: Present: supple Cardiology: Present: edema, regular rate Dialysis Vascular Access: Venous Catheter Gastrointestinal: Present: obese Integumentary: Present: warm and dry Neurologic: Present: alert and oriented x3 Psychiatric: Present: mood/affect appropriate - Lab 01/14/18 05:26 01/14/18 05:26 Most recent lab results Calcium 7.7 mg/dL (8.6-10.3) L 01/14/18 05:26 Magnesium 2.0 mg/dL (1.6-2.6) 01/12/18 03:07 Urine Creatinine 150 mg/dL 01/11/18 07:30 Urine Sodium 53.8 mEq/L 01/11/18 16:10 - VTE Documentation of Mechanical Device: Intermittent pneumatic compression device Consult Discharge Plan - Plan Referrals: Esequiel Bernstein MD [Primary Care Provider] -
[2018-01-15] MEDS: Ipratropium/Albuterol Neb 3 ML IH SCH ×6 (03:48→23:07)
[2018-01-15 05:20] LABS: Hematocrit 26.1 % (37.5-50.1); Hemoglobin 8.7 g/dL (12.9-16.9); Mean Corpuscular HGB Conc 33.3 g/dL (31.6-35.5); Mean Corpuscular Hemoglobin 30.5 pg (28.0-33.3); Mean Corpuscular Volume 91.6 fL (83.0-100.0); Platelet Count 132 K/mcL (140-400); Red Blood Count 2.85 M/mcL (4.19-5.50); Red Cell Distribution Width 14.6 % (11.5-14.5)
[2018-01-15 05:35] LABS: Calcium 7.7 mg/dL (8.6-10.3); Potassium 4.1 mEq/L (3.5-5.1)
[2018-01-15] MEDS: Insulin LISPRO 300 UNITS/3 ML VIAL SQ SCH ×4 (06:51→20:31)
[2018-01-15] MEDS: Cholecalciferol (D-3) 1,000 UNIT TABLET PO SCH (08:16)
[2018-01-15] MEDS: Acetaminophen 325 MG TABLET PO PRN (08:16)
[2018-01-15] MEDS: Multivit/Ca/Min/Fe/FA 1 TAB TABLET PO SCH (08:17)
[2018-01-15] MEDS: cefTRIAXone 1,000 MG in Water for inj. (sterile) 20 ML 10 ML IVP SCH (08:17)
[2018-01-15] MEDS: Insulin DETEMIR 100 UNIT/ML X5UNITS SQ SCH ×2 (08:17→20:31)
[2018-01-15] MEDS ORDERED: 0.9 % Sodium Chloride 250 ML IVC PRN (09:47)
[2018-01-15] MEDS ORDERED: *HR* Heparin 10,000 UNIT/10 ML VIAL IV PRN (09:47)
[2018-01-15] MEDS ORDERED: 0.9 % Sodium Chloride 1,000 ML PRIME SCH (10:00)
[2018-01-15] MEDS: *HR* HYDROcodone/Acet 7.5/325 mg TABLET PO PRN ×2 (10:15→18:41)
--- NOTE | 2018-01-15 12:48 | Internal Med Progress Note ---
Hospitalist Progress Note - Encounter Date of Encounter: 01/15/18 Time of Encounter: 11:23 - Subjective Interval History: Patient was seen and examined bedside. Breathing improving. - Exam Vitals: Temp Pulse Resp BP Pulse Ox 99.8 F H 93 18 144/74 95 01/15/18 11:21 01/15/18 11:21 01/15/18 11:21 01/15/18 11:21 01/15/18 11:21 Exam: Skin: Free of rash and discoloration. ENMT: Oral/pharyngeal mucosa is normal in appearance. Eyes: Sclera is white. There is no discharge from eyes. Respiratory: Normal breath sounds; no crackles or wheezes. CV: Heart is regular; no gallop or murmur. GI: Abdomen is soft and not tender. There is no palpable mass or visceromegaly. : There is tenderness in the area of left flank. Neuro: There is no focal deficits. Pedal edema present Rt IJ dialysis access - Assessment and Plan (1) Kidney hematoma Current Visit: Yes Status: Acute Assessment and Plan: post biopsy, third repeat CT stable. Stable Hb. Will consider imaging if Hb drops. (2) CKD (chronic kidney disease) stage 3, GFR 30-59 ml/min Current Visit: Yes Status: Chronic Assessment and Plan: -biopsy results shows diabetic nephropathy with some HTN component. (3) PNA (pneumonia) Current Visit: Yes Status: Acute Assessment and Plan: Continue Ceftrixone and Azithromycin. Will switch to amoxicillin 500 TID for next 7 days.. (4) DELFINA (acute kidney injury) Current Visit: Yes Status: Acute Assessment and Plan: Patient had a TIA after hematoma after renal biopsy- suspecting page kidney -hold off IV fluids - Status post hemodialysis yesterday. Another session of dialysis is planned today. Plan for tunnel catheter placement (5) Sepsis due to pneumonia Current Visit: Yes Status: Acute Assessment and Plan: Patient initially presented with signs of sepsis with high white count - X-ray showed increased density in the lower lobes suspicion of pneumonia - Continued on antibiotics with ceftriaxone and azithromycin. We will switch to by mouth amoxicillin today - Improving DVT Prophylaxis: Heparin SC - Time Spent with Patient Total time spent is greater than 50% in coordination of care (as documented) at patient's floor/unit and/or counseling patient: Greater than 35 minutes Internal Medicine: Result - Labs CBC & Chem 7: 01/15/18 05:09 01/15/18 05:09 Labs: Short CBC 01/15/18 Range/Units 05:09 WBC 12.4 H (4.3-11.1) K/mcL Hgb 8.7 L (12.9-16.9) g/dL Hct 26.1 L (37.5-50.1) % Plt Count 132 L (140-400) K/mcL BMP 01/15/18 05:09 Sodium 136 Potassium 4.1 Chloride 98 Carbon Dioxide 28 BUN 76 H Creatinine 4.48 H Glucose 219 H Calcium 7.7 L - ABG Interpretation ABG results: PT/INR, D-dimer PT 12.8 Seconds (9.4-12.1) H 01/09/18 07:26 - VTE Documentation of Mechanical Device: Intermittent pneumatic compression device Consult Discharge Plan - Plan Referrals: Esequiel Benrstein MD [Primary Care Provider] - (1) Kidney hematoma Qualifiers: Encounter type: subsequent encounter Laterality: left Qualified Code(s): S37.012D - Minor contusion of left kidney, subsequent encounter (3) PNA (pneumonia) Qualifiers: Pneumonia type: due to unspecified organism Laterality: right Lung location : lower lobe of lung Qualified Code(s): J18.1 - Lobar pneumonia, unspecified organism
[2018-01-15] MEDS: Amoxicillin 500 MG CAPSULE PO SCH (20:30)
--- NOTE | 2018-01-15 20:57 | Nephrology Progress Note ---
Date of Encounter: 01/15/18 Time of Encounter: 20:54 - Assessment and Plan (1) DELFINA (acute kidney injury) Current Visit: Yes Status: Acute SCrcontinues to worsen s/p hematoma/bleeding after renal biopsy Likely Page Kidney Hemodynamics currently stable Agree with stopping IVF due to resp. distress Patient started HD 01/13 Patient seen on dialysis today and feels better. Avoid all nephrotoxins if possible (2) Kidney hematoma Current Visit: Yes Status: Acute post biopsy, third repeat CT stable Continue serial hgb checks IR aware Qualifiers: Encounter type: subsequent encounter Laterality: left Qualified Code(s): S37.012D - Minor contusion of left kidney, subsequent encounter (3) Stage 4 chronic kidney disease Current Visit: Yes Status: Chronic prelim biopsy results shows diabetic nephropathy with some HTN component (4) Respiratory failure with hypoxia Current Visit: Yes Status: Acute Likely due to developing PNA, continue abx per primary team Qualifiers: Chronicity: acute Qualified Code(s): J96.01 - Acute respiratory failure with hypoxia Subjective Principal diagnosis: hematoma s/p left kidney biopsy Interval history: Patient seen while on dialysis. He feels much better with less dyspnea. He is off Bipap. He had mild nausea while on dialysis. Objective - Vital Signs Vital signs: Vital Signs Temp Pulse Resp BP Pulse Ox 01/15/18 20:03 98.1 F 89 18 147/82 95 01/15/18 19:36 18 92 01/15/18 18:12 98.4 F 18 155/85 01/15/18 18:00 129/76 01/15/18 17:45 146/80 01/15/18 17:30 147/73 01/15/18 17:15 151/78 01/15/18 17:00 147/74 01/15/18 16:45 143/79 01/15/18 16:30 139/79 01/15/18 16:15 133/71 01/15/18 16:00 135/70 01/15/18 15:45 134/70 01/15/18 15:30 137/69 01/15/18 15:15 140/77 01/15/18 15:00 98.8 F 18 143/73 01/15/18 11:21 99.8 F H 93 18 144/74 95 01/15/18 11:07 18 92 01/15/18 08:54 99.9 F H 84 18 133/74 93 01/15/18 07:29 18 93 01/15/18 04:00 101.1 F H 75 18 146/78 92 01/15/18 03:48 18 93 01/14/18 23:23 17 96 01/14/18 23:02 99.9 F H 67 16 131/75 94 Intake and Output 01/15/18 01/15/18 01/15/18 07:59 15:59 23:59 Intake Total 840 / 840 Output Total 425 / 425 1600 / 1600 Balance 415 / 415 -1600 / -1600 Intake: Oral 240 / 240 Intake, Rinseback and Flushes 600 / 600 Output: Total Dialysis (HD) Output 1600 / 1600 Catheter 425 / 425 Other: Meal Lunch Percent of Meal Consumed 50% Blood Glucose* 226 268 176 Hemodialysis Net Fluid Removed 396 1000 (mL) - General Appearance General appearance: Present: well-developed, well-nourished EENT: Present: ATNC Neck: Present: supple Cardiology: Present: regular rate Integumentary: Present: warm and dry Neurologic: Present: alert and oriented x3 Musculoskeletal: Present: no cyanosis Psychiatric: Present: mood/affect appropriate - Lab 01/15/18 05:09 01/15/18 05:09 Most recent lab results Calcium 7.7 mg/dL (8.6-10.3) L 01/15/18 05:09 Magnesium 2.0 mg/dL (1.6-2.6) 01/12/18 03:07 Urine Creatinine 150 mg/dL 01/11/18 07:30 Urine Sodium 53.8 mEq/L 01/11/18 16:10 - VTE Documentation of Mechanical Device: Intermittent pneumatic compression device Consult Discharge Plan - Plan Referrals: Esequiel Bernstein MD [Primary Care Provider] -
[2018-01-16] MEDS: Ondansetron 4 MG/2 ML VIAL IVP PRN ×2 (01:22→17:57)
[2018-01-16] MEDS: Ipratropium/Albuterol Neb 3 ML IH SCH ×6 (03:52→23:00)
[2018-01-16 05:02] LABS: Hematocrit 26.9 % (37.5-50.1); Hemoglobin 9.1 g/dL (12.9-16.9); Mean Corpuscular HGB Conc 33.8 g/dL (31.6-35.5); Mean Corpuscular Hemoglobin 30.6 pg (28.0-33.3); Mean Corpuscular Volume 90.6 fL (83.0-100.0); Mean Platelet Volume 9.8 fL (9.4-12.4); Platelet Count 148 K/mcL (140-400); Red Blood Count 2.97 M/mcL (4.19-5.50); Red Cell Distribution Width 14.6 % (11.5-14.5)
[2018-01-16 05:18] LABS: Calcium 7.9 mg/dL (8.6-10.3); Potassium 4.3 mEq/L (3.5-5.1)
[2018-01-16] MEDS: *HR* HYDROcodone/Acet 7.5/325 mg TABLET PO PRN ×2 (07:40→17:42)
[2018-01-16] MEDS: Acetaminophen 325 MG TABLET PO PRN (07:41)
[2018-01-16] MEDS: Cholecalciferol (D-3) 1,000 UNIT TABLET PO SCH (07:41)
[2018-01-16] MEDS: Multivit/Ca/Min/Fe/FA 1 TAB TABLET PO SCH (07:41)
[2018-01-16] MEDS: Amoxicillin 500 MG CAPSULE PO SCH ×3 (07:42→21:28)
[2018-01-16] MEDS: Insulin LISPRO 300 UNITS/3 ML VIAL SQ SCH ×4 (07:43→21:29)
[2018-01-16] MEDS: Insulin DETEMIR 100 UNIT/ML X5UNITS SQ SCH ×2 (07:46→21:29)
--- NOTE | 2018-01-16 09:35 | Nephrology Progress Note ---
Date of Encounter: 01/16/18 Time of Encounter: 09:45 - Assessment and Plan (1) DELFINA (acute kidney injury) Current Visit: Yes Status: Acute DELFINA secondary to likely PAGE kidney. SCr improved with HD yesterday. We will recheck with AM labs tomorrow. Hemodynamics currently stable Avoid all nephrotoxins if possible. Strict I/Os. Plan for perm cath next Friday if without signs of infection. (2) Kidney hematoma Current Visit: Yes Status: Acute post biopsy, third repeat CT stable Continue serial hgb checks. Stable Hb ~9.0 IR aware Qualifiers: Encounter type: subsequent encounter Laterality: left Qualified Code(s): S37.012D - Minor contusion of left kidney, subsequent encounter (3) Stage 4 chronic kidney disease Current Visit: Yes Status: Chronic prelim biopsy results shows diabetic nephropathy with some HTN component (4) PNA (pneumonia) Current Visit: Yes Status: Acute Improved. Patient had several episodes of fever yesterday. Leukocytosis improving but not back to baseline. Continue to monitor CBC. If he returns to baseline, we will perform perm cath on Friday. Qualifiers: Pneumonia type: due to unspecified organism Laterality: right Lung location: lower lobe of lung Qualified Code(s): J18.1 - Lobar pneumonia, unspecified organism Subjective Principal diagnosis: hematoma s/p left kidney biopsy Interval history: Patient is doing well today without acute overnight events. He reports that he tolerated HD well yesterday. He continues to have complaints of nausea but denies abdominal pain, vomiting. Currently not on BIPAP anymore and denies SOB or CP. Straight cath with dark yellow colored urine. He does not have any further questions or acute complaints. Objective - Vital Signs Vital signs: Vital Signs Temp Pulse Resp BP Pulse Ox 01/16/18 07:56 92 01/16/18 07:36 16 94 01/16/18 07:29 99.7 F H 80 18 146/84 94 01/16/18 05:07 99.3 F 77 18 132/80 94 01/16/18 03:52 17 96 01/16/18 00:48 98.6 F 93 16 128/86 96 01/16/18 00:40 98.9 F 78 14 133/73 93 01/15/18 23:07 16 97 01/15/18 20:03 98.1 F 89 18 147/82 95 01/15/18 19:36 18 92 01/15/18 18:12 98.4 F 18 155/85 01/15/18 18:00 129/76 01/15/18 17:45 146/80 01/15/18 17:30 147/73 01/15/18 17:15 151/78 01/15/18 17:00 147/74 01/15/18 16:45 143/79 01/15/18 16:30 139/79 01/15/18 16:15 133/71 01/15/18 16:00 135/70 01/15/18 15:45 134/70 01/15/18 15:30 137/69 01/15/18 15:15 140/77 01/15/18 15:00 98.8 F 18 143/73 01/15/18 11:21 99.8 F H 93 18 144/74 95 01/15/18 11:07 18 92 Intake and Output 01/15/18 01/16/18 01/16/18 23:59 07:59 15:59 Output Total 1600 / 1600 400 / 400 Balance -1600 / -1600 -400 / -400 Output: Total Dialysis (HD) Output 1600 / 1600 Catheter 400 / 400 Other: Weight 103.1 kg Blood Glucose* 176 171 Hemodialysis Net Fluid Removed 1000 (mL) Patient Weight 01/16/18 23:59 Weight 103.1 kg - General Appearance Exam: General appearance: Present: well-developed, well-nourished EENT: Present: ATNC Neck: Present: supple Cardiology: Present: regular rate and rhythm. No murmurs noted. 1+ bilateral LE edema Integumentary: Present: warm and dry Neurologic: Present: alert and oriented x3 Musculoskeletal: Present: no cyanosis Psychiatric: Present: mood/affect appropriate - Lab 01/16/18 04:46 01/16/18 04:46 Most recent lab results Calcium 7.9 mg/dL (8.6-10.3) L 01/16/18 04:46 Magnesium 2.0 mg/dL (1.6-2.6) 01/12/18 03:07 Urine Creatinine 150 mg/dL 01/11/18 07:30 Urine Sodium 53.8 mEq/L 01/11/18 16:10 - VTE Documentation of Mechanical Device: Intermittent pneumatic compression device Consult Discharge Plan - Plan Referrals: Esequiel Bernstein MD [Primary Care Provider] -
--- NOTE | 2018-01-16 12:05 | Internal Med Progress Note ---
Hospitalist Progress Note - Encounter Date of Encounter: 01/16/18 Time of Encounter: 10:16 - Subjective Interval History: Patient was seen and examined bedside. Breathing improving. No bipap needed overnight. No fever, chills or diarrhea. - Exam Vitals: Temp Pulse Resp BP Pulse Ox 98.7 F 81 16 135/87 85 01/16/18 11:54 01/16/18 11:54 01/16/18 11:54 01/16/18 11:54 01/16/18 11:54 Exam: Skin: Free of rash and discoloration. ENMT: Oral/pharyngeal mucosa is normal in appearance. Eyes: Sclera is white. There is no discharge from eyes. Respiratory: Normal breath sounds; no crackles or wheezes. CV: Heart is regular; no gallop or murmur. GI: Abdomen is soft and not tender. There is no palpable mass or visceromegaly. : There is tenderness in the area of left flank. Neuro: There is no focal deficits. Pedal edema present Rt IJ dialysis access - Assessment and Plan (1) Kidney hematoma Current Visit: Yes Status: Acute Assessment and Plan: post biopsy, third repeat CT stable. Stable Hb. Will consider imaging if Hb drops. (2) CKD (chronic kidney disease) stage 3, GFR 30-59 ml/min Current Visit: Yes Status: Chronic Assessment and Plan: -biopsy results shows diabetic nephropathy with some HTN component. (3) PNA (pneumonia) Current Visit: Yes Status: Acute Assessment and Plan: Continue Ceftrixone and Azithromycin. Will switch to amoxicillin 500 TID for next 5 days. (4) DELFINA (acute kidney injury) Current Visit: Yes Status: Acute Assessment and Plan: Patient had a TIA after hematoma after renal biopsy- suspecting page kidney -hold off IV fluids - On HD. Plan for tunnel catheter placement. (5) Sepsis due to pneumonia Current Visit: Yes Status: Resolved Assessment and Plan: Patient initially presented with signs of sepsis with high white count - X-ray showed increased density in the lower lobes suspicion of pneumonia - c/w amoxicillin DVT Prophylaxis: Heparin SC - Time Spent with Patient Total time spent is greater than 50% in coordination of care (as documented) at patient's floor/unit and/or counseling patient: Internal Medicine: Result - Labs CBC & Chem 7: 01/16/18 04:46 01/16/18 04:46 Labs: Short CBC 01/16/18 Range/Units 04:46 WBC 11.5 H (4.3-11.1) K/mcL Hgb 9.1 L (12.9-16.9) g/dL Hct 26.9 L (37.5-50.1) % Plt Count 148 (140-400) K/mcL BMP 01/16/18 04:46 Sodium 136 Potassium 4.3 Chloride 100 Carbon Dioxide 29 BUN 60 H Creatinine 3.41 H Glucose 183 H Calcium 7.9 L - ABG Interpretation ABG results: PT/INR, D-dimer PT 12.8 Seconds (9.4-12.1) H 01/09/18 07:26 - VTE Documentation of Mechanical Device: Intermittent pneumatic compression device Consult Discharge Plan - Plan Referrals: Esequiel Bernstein MD [Primary Care Provider] - (1) Kidney hematoma Qualifiers: Encounter type: subsequent encounter Laterality: left Qualified Code(s): S37.012D - Minor contusion of left kidney, subsequent encounter (3) PNA (pneumonia) Qualifiers: Pneumonia type: due to unspecified organism Laterality: right Lung location : lower lobe of lung Qualified Code(s): J18.1 - Lobar pneumonia, unspecified organism
[2018-01-17] MEDS: Ipratropium/Albuterol Neb 3 ML IH SCH ×6 (04:03→23:35)
[2018-01-17] MEDS: Ondansetron 4 MG/2 ML VIAL IVP PRN ×2 (04:43→12:39)
[2018-01-17 05:03] LABS: Hematocrit 26.9 % (37.5-50.1); Hemoglobin 9.1 g/dL (12.9-16.9); Mean Corpuscular HGB Conc 33.8 g/dL (31.6-35.5); Mean Corpuscular Hemoglobin 30.1 pg (28.0-33.3); Mean Corpuscular Volume 89.1 fL (83.0-100.0); Mean Platelet Volume 9.5 fL (9.4-12.4); Platelet Count 163 K/mcL (140-400); Red Blood Count 3.02 M/mcL (4.19-5.50); Red Cell Distribution Width 14.2 % (11.5-14.5)
[2018-01-17 05:21] LABS: Calcium 7.7 mg/dL (8.6-10.3); Potassium 4.2 mEq/L (3.5-5.1)
[2018-01-17] MEDS ORDERED: 0.9 % Sodium Chloride 250 ML IVC PRN (07:38)
[2018-01-17] MEDS ORDERED: *HR* Heparin 10,000 UNIT/10 ML VIAL IV PRN (07:42)
[2018-01-17] MEDS ORDERED: 0.9 % Sodium Chloride 1,000 ML PRIME SCH (07:45)
[2018-01-17] MEDS ORDERED: 0.9 % Sodium Chloride 1,000 ML ONE (07:54)
[2018-01-17] MEDS: Insulin LISPRO 300 UNITS/3 ML VIAL SQ SCH ×4 (08:29→20:27)
[2018-01-17] MEDS: Amoxicillin 500 MG CAPSULE PO SCH ×2 (08:29→20:25)
[2018-01-17] MEDS: Multivit/Ca/Min/Fe/FA 1 TAB TABLET PO SCH (08:30)
[2018-01-17] MEDS: Cholecalciferol (D-3) 1,000 UNIT TABLET PO SCH (08:30)
[2018-01-17] MEDS: Insulin DETEMIR 100 UNIT/ML X5UNITS SQ SCH ×2 (08:34→20:27)
--- NOTE | 2018-01-17 09:41 | Internal Med Progress Note ---
Hospitalist Progress Note - Encounter Date of Encounter: 01/17/18 Time of Encounter: 09:40 - Subjective Interval History: Patient was seen and examined bedside. Breathing improving. No bipap needed overnight. No fever, chills or diarrhea. - Exam Vitals: Temp Pulse Resp BP Pulse Ox 98.9 F 82 18 147/78 94 01/17/18 07:02 01/17/18 07:02 01/17/18 07:34 01/17/18 07:02 01/17/18 07:34 Exam: Skin: Free of rash and discoloration. ENMT: Oral/pharyngeal mucosa is normal in appearance. Eyes: Sclera is white. There is no discharge from eyes. Respiratory: Normal breath sounds; no crackles or wheezes. CV: Heart is regular; no gallop or murmur. GI: Abdomen is soft and not tender. There is no palpable mass or visceromegaly. : There is tenderness in the area of left flank. Neuro: There is no focal deficits. Pedal edema present. Decreasing. Rt IJ dialysis access - Assessment and Plan (1) Kidney hematoma Current Visit: Yes Status: Acute Assessment and Plan: post biopsy, third repeat CT stable. Stable Hb. Will consider imaging if Hb drops. (2) CKD (chronic kidney disease) stage 3, GFR 30-59 ml/min Current Visit: Yes Status: Chronic Assessment and Plan: -biopsy results shows diabetic nephropathy with some HTN component. (3) PNA (pneumonia) Current Visit: Yes Status: Acute Assessment and Plan: - abx switch to amoxicillin 500 TID for next 4 days. (4) DELFINA (acute kidney injury) Current Visit: Yes Status: Acute Assessment and Plan: hematoma after renal biopsy- suspecting page kidney -hold off IV fluids - On HD. Plan for tunnel catheter placement. (5) Sepsis due to pneumonia Current Visit: Yes Status: Resolved DVT Prophylaxis: Heparin SC - Time Spent with Patient Total time spent is greater than 50% in coordination of care (as documented) at patient's floor/unit and/or counseling patient: Internal Medicine: Result - Labs CBC & Chem 7: 01/17/18 04:00 01/17/18 04:00 Labs: Short CBC 01/17/18 Range/Units 04:00 WBC 11.5 H (4.3-11.1) K/mcL Hgb 9.1 L (12.9-16.9) g/dL Hct 26.9 L (37.5-50.1) % Plt Count 163 (140-400) K/mcL BMP 01/17/18 04:00 Sodium 131 L Potassium 4.2 Chloride 105 Carbon Dioxide 26 BUN 72 H Creatinine 3.95 H Glucose 196 H Calcium 7.7 L - ABG Interpretation ABG results: PT/INR, D-dimer PT 12.8 Seconds (9.4-12.1) H 01/09/18 07:26 - VTE Documentation of Mechanical Device: Intermittent pneumatic compression device Consult Discharge Plan - Plan Referrals: Esequiel Bernstein MD [Primary Care Provider] - (1) Kidney hematoma Qualifiers: Encounter type: subsequent encounter Laterality: left Qualified Code(s): S37.012D - Minor contusion of left kidney, subsequent encounter (3) PNA (pneumonia) Qualifiers: Pneumonia type: due to unspecified organism Laterality: right Lung location : lower lobe of lung Qualified Code(s): J18.1 - Lobar pneumonia, unspecified organism
--- NOTE | 2018-01-17 11:39 | Nephrology Progress Note ---
Date of Encounter: 01/17/18 Time of Encounter: 11:39 - Assessment and Plan (1) DELFINA (acute kidney injury) Current Visit: Yes Status: Acute SCr continues to worsen s/p hematoma/bleeding after renal biopsy Likely Page Kidney Hemodynamics currently stable Agree with stopping IVF due to resp. distress Patient started HD 01/13 Patient seen on dialysis today and feels better. Avoid all nephrotoxins if possible Awaiting tunneled line placement and dialysis placement. (2) Kidney hematoma Current Visit: Yes Status: Acute post biopsy, third repeat CT stable Continue serial hgb checks IR aware Qualifiers: Encounter type: subsequent encounter Laterality: left Qualified Code(s): S37.012D - Minor contusion of left kidney, subsequent encounter (3) Stage 4 chronic kidney disease Current Visit: Yes Status: Chronic prelim biopsy results shows diabetic nephropathy with some HTN component (4) Respiratory failure with hypoxia Current Visit: Yes Status: Acute Likely due to pneumonia, continue abx per primary team Qualifiers: Chronicity: acute Qualified Code(s): J96.01 - Acute respiratory failure with hypoxia Subjective Principal diagnosis: hematoma s/p left kidney biopsy Interval history: Patient seen while on dialysis. He feels much better with less dyspnea. He is off Bipap. Objective - Vital Signs Vital signs: Vital Signs Temp Pulse Resp BP Pulse Ox 01/17/18 07:34 18 94 01/17/18 07:02 98.9 F 82 17 147/78 90 01/17/18 04:10 98.6 F 78 18 152/92 97 01/17/18 04:03 18 93 01/17/18 00:30 98.6 F 80 17 146/81 93 01/16/18 23:01 17 93 01/16/18 19:40 98.9 F 76 18 152/71 98 01/16/18 17:51 99.1 F 101 20 158/77 93 01/16/18 15:38 16 94 01/16/18 11:54 98.7 F 81 16 135/87 85 Intake and Output 01/16/18 01/17/18 01/17/18 23:59 07:59 15:59 Output Total 350 / 350 400 / 400 250 / 250 Balance -350 / -350 -400 / -400 -250 / -250 Output: Catheter 350 / 350 400 / 400 250 / 250 Other: Weight 101.4 kg Blood Glucose* 218 175 104 Patient Weight 01/17/18 23:59 Weight 101.4 kg - General Appearance General appearance: Present: well-developed, well-nourished EENT: Present: ATNC Neck: Present: supple Respiratory: Present: clear Cardiology: Present: edema, regular rate Dialysis Vascular Access: Venous Catheter Gastrointestinal: Present: no tenderness Integumentary: Present: warm and dry Neurologic: Present: alert and oriented x3 Psychiatric: Present: mood/affect appropriate - Lab 01/17/18 04:00 01/17/18 04:00 Most recent lab results Calcium 7.7 mg/dL (8.6-10.3) L 01/17/18 04:00 Magnesium 2.0 mg/dL (1.6-2.6) 01/12/18 03:07 Urine Creatinine 150 mg/dL 01/11/18 07:30 Urine Sodium 53.8 mEq/L 01/11/18 16:10 - VTE Documentation of Mechanical Device: Intermittent pneumatic compression device Consult Discharge Plan - Plan Referrals: Esequiel Bernstein MD [Primary Care Provider] -
[2018-01-17] MEDS ORDERED: *HR* Promethazine 25 MG/ML VIAL ONE (13:50)
[2018-01-17] MEDS: *HR* Promethazine 25 MG/ML VIAL IVP PRN (13:59)
[2018-01-17] MEDS: *HR* HYDROcodone/Acet 7.5/325 mg TABLET PO PRN (18:07)
[2018-01-18] MEDS: Ipratropium/Albuterol Neb 3 ML IH SCH ×5 (03:15→20:41)
[2018-01-18 04:01] LABS: Hematocrit 26.9 % (37.5-50.1); Hemoglobin 9.1 g/dL (12.9-16.9); Mean Corpuscular HGB Conc 33.8 g/dL (31.6-35.5); Mean Corpuscular Hemoglobin 30.3 pg (28.0-33.3); Mean Corpuscular Volume 89.7 fL (83.0-100.0); Mean Platelet Volume 9.4 fL (9.4-12.4); Platelet Count 183 K/mcL (140-400); Red Cell Distribution Width 14.1 % (11.5-14.5)
[2018-01-18 04:24] LABS: Calcium 7.7 mg/dL (8.6-10.3); Potassium 4.5 mEq/L (3.5-5.1)
[2018-01-18] MEDS: *HR* HYDROcodone/Acet 7.5/325 mg TABLET PO PRN (08:10)
[2018-01-18] MEDS: Multivit/Ca/Min/Fe/FA 1 TAB TABLET PO SCH (08:11)
[2018-01-18] MEDS: Cholecalciferol (D-3) 1,000 UNIT TABLET PO SCH (08:11)
[2018-01-18] MEDS: Amoxicillin 500 MG CAPSULE PO SCH ×2 (08:11→21:46)
[2018-01-18] MEDS: Insulin LISPRO 300 UNITS/3 ML VIAL SQ SCH ×4 (08:12→21:47)
[2018-01-18] MEDS: Insulin DETEMIR 100 UNIT/ML X5UNITS SQ SCH ×2 (08:12→21:47)
--- NOTE | 2018-01-18 08:49 | Nephrology Progress Note ---
Date of Encounter: 01/18/18 Time of Encounter: 08:49 - Assessment and Plan (1) DELFINA (acute kidney injury) Current Visit: Yes Status: Acute SCr worsened s/p hematoma/bleeding after renal biopsy Likely Page Kidney Hemodynamics currently stable Patient started HD 01/13 Avoid all nephrotoxins if possible Awaiting tunneled line placement on Friday and dialysis placement. Renal dose medications. Consider no UF for 1st hour to see if nausea recurs. Work-up for anemia ordered. (2) Kidney hematoma Current Visit: Yes Status: Acute post biopsy, third repeat CT stable Continue serial hgb checks IR aware Qualifiers: Encounter type: subsequent encounter Laterality: left Qualified Code(s): S37.012D - Minor contusion of left kidney, subsequent encounter (3) Stage 4 chronic kidney disease Current Visit: Yes Status: Chronic prelim biopsy results shows diabetic nephropathy with some HTN component (4) Respiratory failure with hypoxia Current Visit: Yes Status: Acute Likely due to pneumonia, continue abx per primary team Patient no longer on bipap. Improved. He is now on oral antibiotics. Qualifiers: Chronicity: acute Qualified Code(s): J96.01 - Acute respiratory failure with hypoxia Subjective Principal diagnosis: hematoma s/p left kidney biopsy Interval history: Patient seen in the room with his . He overall feels better. He states that he experiences nausea while on dialysis. He feels much better with less dyspnea. He is off Bipap. Objective - Vital Signs Vital signs: Vital Signs Temp Pulse Resp BP Pulse Ox 01/18/18 08:21 98 01/18/18 07:33 16 97 01/18/18 07:17 98.3 F 80 18 159/82 95 01/18/18 04:21 98.2 F 84 16 184/69 92 01/18/18 03:17 16 96 01/17/18 23:36 16 96 01/17/18 23:05 98.4 F 71 16 144/76 96 01/17/18 20:21 98.5 F 88 17 133/73 98 01/17/18 19:27 18 95 01/17/18 17:07 98.8 F 85 18 148/74 95 01/17/18 16:19 94 01/17/18 15:43 18 94 01/17/18 13:59 94 01/17/18 12:30 98.6 F 18 149/74 01/17/18 12:15 138/51 01/17/18 12:00 148/70 01/17/18 11:45 133/77 01/17/18 11:30 140/70 01/17/18 11:15 144/65 01/17/18 11:00 159/74 01/17/18 10:45 151/76 01/17/18 10:30 141/62 01/17/18 10:15 157/88 01/17/18 10:00 151/74 01/17/18 09:45 171/73 01/17/18 09:30 164/69 01/17/18 09:15 99.4 F 18 162/78 Intake and Output 01/17/18 01/18/18 01/18/18 23:59 07:59 15:59 Intake Total 240 / 240 Output Total 250 / 250 200 / 200 Balance -10 / -10 -200 / -200 Intake: Oral 240 / 240 Output: Catheter 250 / 250 200 / 200 Other: Meal Dinner Percent of Meal Consumed 15% Stool Size Large Stool Consistency loose soft Stool Color Brown Weight 103.7 kg Blood Glucose* 262 215 - General Appearance General appearance: Present: well-developed, well-nourished EENT: Present: ATNC Cardiology: Present: no edema, regular rate Dialysis Vascular Access: Venous Catheter Integumentary: Present: warm and dry Neurologic: Present: alert and oriented x3 Psychiatric: Present: mood/affect appropriate - Lab 01/18/18 03:30 01/18/18 03:30 Most recent lab results Calcium 7.7 mg/dL (8.6-10.3) L 01/18/18 03:30 Magnesium 2.0 mg/dL (1.6-2.6) 01/12/18 03:07 Urine Creatinine 150 mg/dL 01/11/18 07:30 Urine Sodium 53.8 mEq/L 01/11/18 16:10 - VTE Documentation of Mechanical Device: Intermittent pneumatic compression device Consult Discharge Plan - Plan Referrals: Esequiel Bernstein MD [Primary Care Provider] -
[2018-01-18] MEDS: Renal Vitamin 1 CAP CAPSULE PO SCH (11:12)
--- NOTE | 2018-01-18 11:59 | Internal Med Progress Note ---
Hospitalist Progress Note - Encounter Date of Encounter: 01/18/18 Time of Encounter: 10:16 - Subjective Interval History: Patient was seen and examined bedside. Complains of nausea after every hemodialysis and is concerned about it. Denies any other complaints. - Exam Vitals: Temp Pulse Resp BP Pulse Ox 100.1 F H 79 18 146/73 96 01/18/18 11:25 01/18/18 11:25 01/18/18 11:25 01/18/18 11:25 01/18/18 11:25 Exam: Skin: Free of rash and discoloration. ENMT: Oral/pharyngeal mucosa is normal in appearance. Eyes: Sclera is white. There is no discharge from eyes. Respiratory: Normal breath sounds; no crackles or wheezes. CV: Heart is regular; no gallop or murmur. GI: Abdomen is soft and not tender. There is no palpable mass or visceromegaly. : There is tenderness in the area of left flank. Neuro: There is no focal deficits. Pedal edema present. Decreasing. Rt temp IJ dialysis access - Assessment and Plan (1) Kidney hematoma Current Visit: Yes Status: Acute (2) CKD (chronic kidney disease) stage 3, GFR 30-59 ml/min Current Visit: Yes Status: Chronic (3) PNA (pneumonia) Current Visit: Yes Status: Acute (4) DELFINA (acute kidney injury) Current Visit: Yes Status: Acute (5) Sepsis due to pneumonia Current Visit: Yes Status: Resolved - Summary of Assessment and Plan Summary of Assessment and Plan: Kidney hematoma - post biopsy, third repeat CT stable. - Stable Hb. Will consider imaging if Hb drops. CKD stage 3, GFR 30-59 ml/min - biopsy results shows diabetic nephropathy with some HTN component. PNA - abx switch to amoxicillin 500 TID for next 3 days. DELFINA - hematoma after renal biopsy- suspecting page kidney - Started On HD. Plan for tunnel catheter placement tommorrow. Acute hypoxic respiratory failure - Likely secondary to PNA and fluid overload - now resolved. Did not need Bipap for last 2 days. off oxygne - On abx for pneumonia DM type 2 - c/w levemir 10 BID and Sliding scale. HTN - c/w home metoprolol DVT ppx Heparin SC Plan for discharge tommorrow after tunnel catheter placement and arrangement of Outpatient dialsysis(patient prefer at [facility]) - Time Spent with Patient Total time spent is greater than 50% in coordination of care (as documented) at patient's floor/unit and/or counseling patient: Internal Medicine: Result - Labs CBC & Chem 7: 01/18/18 03:30 01/18/18 03:30 Labs: Short CBC 01/18/18 Range/Units 03:30 WBC 11.4 H (4.3-11.1) K/mcL Hgb 9.1 L (12.9-16.9) g/dL Hct 26.9 L (37.5-50.1) % Plt Count 183 (140-400) K/mcL BMP 01/18/18 03:30 Sodium 136 Potassium 4.5 Chloride 101 Carbon Dioxide 27 BUN 52 H Creatinine 3.11 H Glucose 227 H Calcium 7.7 L - ABG Interpretation ABG results: PT/INR, D-dimer PT 12.8 Seconds (9.4-12.1) H 01/09/18 07:26 - VTE Documentation of Mechanical Device: Intermittent pneumatic compression device Consult Discharge Plan - Plan Referrals: Esequiel Bernstein MD [Primary Care Provider] - (1) Kidney hematoma Qualifiers: Encounter type: subsequent encounter Laterality: left Qualified Code(s): S37.012D - Minor contusion of left kidney, subsequent encounter (3) PNA (pneumonia) Qualifiers: Pneumonia type: due to unspecified organism Laterality: right Lung location : lower lobe of lung Qualified Code(s): J18.1 - Lobar pneumonia, unspecified organism
[2018-01-18 14:28] LABS: Bilirubin,Urine Negative (Negative); Blood,Urine Large (Negative); Clarity,Urine Cloudy (Clear); Color,Urine Yellow (Yellow); Glucose,Urine (UA) 100 mg/dL (Normal); Ketones,Urine Negative (Negative); Leukocyte Esterase,Urine Small (Negative); Nitrite,Urine Negative (Negative); PH,Urine 5.5 pH Units (5.0-8.0); Protein,Urine 100 mg/dL (Neg-Trace); Specific Gravity,Urine 1.023 (1.010-1.025); Urobilinogen,Urine Normal (Normal)
[2018-01-18 14:30] LABS: Bacteria,Urine None Seen per hpf (None-Few); Hyaline Casts,Urine Few per lpf (None-Few); Squamous Epithelial Cell,Urine Many per lpf (None-Few); WBC,Urine 15-30 per hpf (0-3)
[2018-01-19] MEDS: Ipratropium/Albuterol Neb 3 ML IH SCH ×7 (00:02→23:11)
[2018-01-19] MEDS: Ondansetron 4 MG/2 ML VIAL IVP PRN ×2 (01:58→09:13)
[2018-01-19 05:34] LABS: Hematocrit 27.6 % (37.5-50.1); Hemoglobin 9.3 g/dL (12.9-16.9); Mean Corpuscular HGB Conc 33.7 g/dL (31.6-35.5); Mean Corpuscular Hemoglobin 30.3 pg (28.0-33.3); Mean Corpuscular Volume 89.9 fL (83.0-100.0); Mean Platelet Volume 8.9 fL (9.4-12.4); Platelet Count 206 K/mcL (140-400); Red Blood Count 3.07 M/mcL (4.19-5.50); Red Cell Distribution Width 14.2 % (11.5-14.5)
[2018-01-19 05:50] LABS: INR 1.3; Prothrombin Time 14.4 Seconds (9.4-12.1)
[2018-01-19 05:52] LABS: Activated Partial Thrombo Time 30.1 Seconds (26.0-36.0)
[2018-01-19 05:55] LABS: Potassium 4.9 mEq/L (3.5-5.1)
[2018-01-19 05:57] LABS: Albumin 2.7 g/dL (3.5-5.7); Phosphorous 3.3 mg/dL (2.7-4.5)
[2018-01-19 06:20] LABS: Vitamin B12 1099 pg/mL (250-1100)
[2018-01-19 06:26] LABS: Folate > 22.3 ng/mL (3.0-16.0)
[2018-01-19] MEDS ORDERED: *HR* LORazepam 0.5 MG TABLET PO ONE (08:41)
[2018-01-19] MEDS: Insulin LISPRO 300 UNITS/3 ML VIAL SQ SCH ×4 (09:11→20:34)
[2018-01-19] MEDS: Multivit/Ca/Min/Fe/FA 1 TAB TABLET PO SCH (09:12)
[2018-01-19] MEDS: Amoxicillin 500 MG CAPSULE PO SCH ×2 (09:12→20:33)
[2018-01-19] MEDS: Cholecalciferol (D-3) 1,000 UNIT TABLET PO SCH (09:12)
[2018-01-19] MEDS: Renal Vitamin 1 CAP CAPSULE PO SCH (09:13)
[2018-01-19] MEDS: Insulin DETEMIR 100 UNIT/ML X5UNITS SQ SCH ×2 (09:14→20:34)
--- NOTE | 2018-01-19 11:40 | Discharge Summary ---
- NOTES TO OUTPATIENT PROVIDER Notes to Outpatient Provider: Discharging on insulin NPH 70-30 10 units twice a day. Started on dialysis. 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 [IR] Routine IR us guide vascular access [IR] Routine Date of Encounter: 01/19/18 Time of Encounter: 11:38 - Discharge Diagnosis (1) Kidney hematoma Priority: Primary Status: Acute Qualifiers: Encounter type: subsequent encounter Laterality: left Qualified Code(s): S37.012D - Minor contusion of left kidney, subsequent encounter (2) CKD (chronic kidney disease) stage 3, GFR 30-59 ml/min Priority: Secondary Status: Chronic (3) PNA (pneumonia) Priority: Primary Status: Acute Qualifiers: Pneumonia type: due to unspecified organism Laterality: right Lung location: lower lobe of lung Qualified Code(s): J18.1 - Lobar pneumonia, unspecified organism (4) DELFINA (acute kidney injury) Priority: Primary Status: Acute (5) Sepsis due to pneumonia Priority: Secondary Status: Resolved (6) Type 2 diabetes mellitus Priority: Secondary Status: Acute Qualifiers: 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 Smith is a 67 year old male with past medical history of diabetes, coronary artery disease and hypertension was admitted for left flank pain now for a kidney biopsy and was found to have DELFINA. Patient's aspirin was put on hold. Repeat imaging showed stable hematoma. Patient was started on dialysis. Kidney failure thought to be likely from page kidney. Kidney biopsy showed diabetic nephropathy if it some hypertension component. Patient also had difficulty breathing partly due to fluid overload and also due to pneumonia. Patient completed a course of antibodies while in the hospital. Patient has to get tunneled catheter placement for dialysis and set up outpatient dialysis before being discharged. Likely need ECF placement for the same. Patient's diabetes was managed with IV insulin and would be discharged on home insulin NPH with 10 units twice a day. Discharge discussed with: patient, family, nurse, case management - Time Spent with Patient Total time spent providing and/or coordinating discharge services: Greater than 30 minutes - Discharge Medications Prescriptions: Renal Vitamin [Renal Caps Softgel] 1 cap PO DAILY #30 capsule Home Medications: Allopurinol [Zyloprim 300 MG] 300 mg PO DAILY 01/08/18 [History] Aspirin [Adult Aspirin] 81 mg PO DAILY 01/08/18 [History] Atorvastatin [Lipitor] 40 mg PO HS 01/08/18 [History] Cholecalciferol (Vitamin D3) [Vitamin D3] 2,000 unit PO DAILY 01/08/18 [History] Clopidogrel [Plavix] 75 mg PO DAILY 01/08/18 [History] Metoprolol Tartrate 75 mg PO BID 01/08/18 [History] Multivitamin [One Daily Essential] 1 each PO DAILY 01/08/18 [History] Olmesartan Medoxomil [Benicar] 20 mg PO DAILY 01/08/18 [History] amLODIPine [Norvasc] 5 mg PO DAILY 01/08/18 [History] cloNIDine HCl [CloNIDine HCl] 0.1 mg PO DAILY PRN 01/08/18 [History] Insulin NPH Hum/Reg Insulin Hm [Humulin 70-30 Vial] 10 unit SQ QAM AND QHS #0 [Rx] Renal Vitamin [Renal Caps Softgel] 1 cap PO DAILY #30 capsule 01/19/18 [Rx] Allergies/Adverse Reactions: 3 Allergy/AdvReac Type Severity Reaction Status Date / Time morphine AdvReac Nausea Verified 01/08/18 10:10 naproxen [From Naprosyn] AdvReac Rash Verified 01/08/18 10:10 Date of admission: 01/11/18 07:18 Primary care physician: Esequiel Bernstein MD Consults: 01/09/18 07:11 Consult to Interventional Radiology [CONS] Stat Consulting Provider: Radiology Interventional Cols Reason for Consult: renal hematoma Call Completed: Yes 01/09/18 07:15 Consult to Nephrology [CONS] Routine Consulting Provider: Kidney Alana/ELKE/RA/BROWN Reason for Consult: CKD, hematoma Call Completed: No 01/10/18 07:18 Consult to Cardiology [CONS] Routine Comment: Consulting Provider: Cardiology Alana Reason for Consult: CAD, chest pain Call Completed: No 01/11/18 23:17 Consult to Occupational Therapy [CONS] Routine Comment: Evaluate, develop and implement POC Reason for Consult: Patient reports that he was able to ambulate w/o assistance previously but is now experiencing difficulty w/ weakness in bilateral LEs which impedes his ability to ambulate. Please assess patient for ambulation strength , stability, safety, and possible home assistive/ rehabilitation needs for post-discharge planning. Does patient have active BEDREST order?: No Is patient medically & hemodynamically stable?: Yes Patient assessed for mobility or mobilized this visit?: No Consult to Physical Therapy [CONS] Routine Comment: Evaluate, develop and implement POC Reason for Consult: Patient reports that he was able to ambulate w/o assistance previously but is now experiencing difficulty w/ weakness in bilateral LEs which impedes his ability to ambulate. Please assess patient for ambulation strength , stability, safety, and possible home assistive/ rehabilitation needs for post-discharge planning. Does patient have active BEDREST order?: No Is patient medically & hemodynamically stable?: Yes Patient assessed for mobility or mobilized this visit?: No 01/12/18 14:08 Consult to Specialty Sales Consultant [CONS] Routine Reason for SW Consult: pt needs swing bed/rehab 01/13/18 10:34 Consult to Interventional Radiology [CONS] Routine Consulting Provider: Radiology Interventional Cols Reason for Consult: Patient needs temp hd cath with third port Call Completed: No 01/13/18 11:15 Consult to Dialysis [CONS] ONCE 01/14/18 07:00 Consult to Dialysis [CONS] ONCE 01/15/18 10:00 Consult to Dialysis [CONS] ONCE 01/16/18 13:36 Consult to Specialty Sales Consultant [CONS] Routine Reason for SW Consult: Patient needs HD chair. 01/17/18 07:45 Consult to Dialysis [CONS] ONCE 01/19/18 10:42 Consult to Interventional Radiology [CONS] Routine Consulting Provider: Radiology Interventional Cols Reason for Consult: tunneled catheter Time Notified: 10:43 Call Completed: Yes Discharging clinician: Gisella Fong - Constitutional Vitals: Temp Pulse Resp BP Pulse Ox 97.8 F 64 16 154/83 97 01/19/18 10:50 01/19/18 10:50 01/19/18 11:29 01/19/18 10:50 01/19/18 11:29 General appearance: Present: cooperative, mild distress, A&O X 3, obese, answers questions appropriately Exam: Skin: Free of rash and discoloration. ENMT: Oral/pharyngeal mucosa is normal in appearance. Eyes: Sclera is white. There is no discharge from eyes. Respiratory: Normal breath sounds; no crackles or wheezes. CV: Heart is regular; no gallop or murmur. GI: Abdomen is soft and not tender. There is no palpable mass or visceromegaly. : There is tenderness in the area of left flank. Neuro: There is no focal deficits. Pedal edema present. Decreasing. Rt IJ access - Patient Status Disposition: Home, Self-Care Condition: Good Overall status at discharge: patient is progressing back to baseline - Discharge Instructions Follow Up With: Esequiel Bernstein MD [Primary Care Provider] - Jayy Truong MD [Partnered Physician] - - VTE Documentation of Mechanical Device: Intermittent pneumatic compression device
[2018-01-19 11:41] LABS: VBG Ionized Calcium 1.06 mmol/L (1.15-1.35)
[2018-01-19] MEDS ORDERED: Heparin 1,000 UNITS/500 mL 500 ML ONE (12:13)
[2018-01-19] MEDS ORDERED: *HR* Midazolam HCl 2 MG/2 ML VIAL IVP ONE (13:43)
[2018-01-19] MEDS ORDERED: *HR* FentaNYL (PF) 100 MCG/2 ML VIAL IVP ONE (13:43)
--- NOTE | 2018-01-19 13:44 | Pre-Sedation Evaluation ---
Pre-sedation evaluation - Pre-sedation checklist Date of procedure: 01/19/18 Procedure: permacath Recent Vitals: Last Vital Signs Temp 97.8 F 01/19/18 10:50 Pulse 64 01/19/18 10:50 Resp 16 01/19/18 11:29 BP 154/83 01/19/18 10:50 Pulse Ox 97 01/19/18 11:29 H&P (including ROS) documented in medical record: Yes Previous reaction to sedatives/anesthetics: No Dietary Status: NPO after Midnight Airway Assessment: Patient can open mouth completely, TMJ function normal, Micrognathia (under-bite, receding chin) absent, Neck with adequate range of motion Dentition: No loose teeth or bridges Possible difficult airway: No ASA Classification *see protocol: CLASS II-Mild systemic disease Plan of Care: Pt appropriate candidate for procedure/moderate/conscious sedation , Risks/benefits of procedure/sedation discussed w/ patient/family, If not NPO; Risk of intake outweiged by necessity to perform procedure Cardiac Registry (Cardio Only) - Functional Capacity - Clincal Frailty Scale Clinical Frailty Scale: Managing Well
[2018-01-19] MEDS ORDERED: 0.9 % Sodium Chloride 500 ML ONE (13:55)
--- NOTE | 2018-01-19 14:15 | Nephrology Progress Note ---
Date of Encounter: 01/19/18 Time of Encounter: 10:15 - Assessment and Plan (1) DELFINA (acute kidney injury) Current Visit: Yes Status: Acute Permacath was tentatively planned for tomorrow, but the primary team placed the Permacath order for today. He may be able to have the Permacath removed before discharge if his DELFINA is already trending better (the SCr only [place] from 3.1 to 3.2 since his last HD). No HD indicated today, but will reassess tomorrow. (2) Kidney hematoma Current Visit: Yes Status: Acute Qualifiers: Encounter type: subsequent encounter Laterality: left Qualified Code(s): S37.012D - Minor contusion of left kidney, subsequent encounter (3) Stage 4 chronic kidney disease Current Visit: Yes Status: Chronic Renal biopsy documented diabetic and HTN features. The renal biopsy was described as mostly medulla, which suggests a very deep renal biopsy, which perhaps may have contributed to the retroperitoneal/renal hematoma. (4) Diabetic renal disease Current Visit: Yes Status: Chronic See above, found on renal biopsy. Advise ideal glycemic control and lifestyle mods to help delay CKD progression. Qualifiers: Diabetes mellitus type: type 2 Qualified Code(s): E11.21 - Type 2 diabetes mellitus with diabetic nephropathy (5) Acute flank pain Current Visit: Yes Status: Acute Left, persistent since renal biopsy according to the pt. Subjective Principal diagnosis: hematoma s/p left kidney biopsy Interval history: Pt was s/e earlier today. I sat with and spoke with the pt and his face to face for about 35-40 min. The pt affirmed having N/V and very poor appetite with some anxiety, which was also affirmed by his . I reviewed the sign-out from my colleague Dr. Truong who wrote to me in the sign-out "Plan for tunneled catheter Friday." The pt affirmed still having a dull persistent pain of low intensity felt deep in the left flank without radiation since the renal biopsy. Objective - Vital Signs Vital signs: Vital Signs Temp Pulse Resp BP Pulse Ox 01/19/18 11:29 16 97 01/19/18 10:50 97.8 F 64 16 154/83 97 01/19/18 07:20 16 100 01/19/18 06:54 98.2 F 79 16 128/75 96 01/19/18 04:11 97.7 F 75 16 175/84 95 01/19/18 01:10 98.9 F 77 18 166/92 97 01/19/18 00:06 14 100 01/18/18 21:45 98.7 F 79 18 163/82 96 01/18/18 20:44 14 100 01/18/18 15:30 99 F 79 16 164/92 100 01/18/18 15:26 18 96 Intake and Output 01/18/18 01/19/18 01/19/18 23:59 07:59 15:59 Output Total 100 / 100 350 / 350 Balance -100 / -100 -350 / -350 Output: Urine 100 / 100 350 / 350 Other: Meal Dinner Percent of Meal Consumed 100% Weight 102.6 kg Blood Glucose* 291 211 192 Patient Weight 01/19/18 23:59 Weight 102.6 kg - General Appearance General appearance: Present: well-developed, fatigue, frail, anxious EENT: Present: ATNC, PERRL, mucous membranes dry Neck: Present: supple Respiratory: Present: clear Cardiology: Present: no edema, regular rate, regular rhythm, normal S1, normal S2 Gastrointestinal: Present: normoactive bowel sounds, no guarding, obese Additional Comments: mild left CVA tenderness but no rebound or guarding. Integumentary: Present: warm and dry Neurologic: Present: no focal deficit, no asterixis, alert and oriented x3 Musculoskeletal: Present: no erythema, no clubbing Psychiatric: Present: depressed, cooperative - Lab 01/19/18 05:21 01/19/18 05:21 Most recent lab results Calcium 8.0 mg/dL (8.6-10.3) L 01/19/18 05:21 Phosphorus 3.3 mg/dL (2.7-4.5) 01/19/18 05:21 Magnesium 2.0 mg/dL (1.6-2.6) 01/12/18 03:07 Urine Creatinine 150 mg/dL 01/11/18 07:30 Urine Sodium 53.8 mEq/L 01/11/18 16:10 - Imaging Additional Comments: I reviewed the progress notes, labs, vitals, imaging, and renal biopsy results ( see eCW) - VTE Documentation of Mechanical Device: Intermittent pneumatic compression device Consult Discharge Plan - Plan Referrals: Jayy Truong MD [Partnered Physician] - (patient will see the physician in dialysis center) Esequiel Bernstein MD [Primary Care Provider] - (patient is going to ECF) Prescriptions: Renal Vitamin [Renal Caps Softgel] 1 cap PO DAILY #30 capsule
[2018-01-19] MEDS: *HR* Promethazine 25 MG/ML VIAL IVP PRN (14:16)
[2018-01-19] MEDS ORDERED: *HR* Heparin 5,000 UNIT/ML VIAL ONE (14:23)
--- NOTE | 2018-01-19 14:36 | IR Procedure Note ---
Date of procedure: 01/19/18 Consent Obtained: Written consent Timeout: Correct patient and procedure verified, Correct site verified, Time out performed, Skin prep completed Indications: renal failure Procedure Performed: permacath Was there an administrative office assistant present: No Site/Technique: rt IJ to RA Results/Findings: CXR will show position Estimated blood loss (cc): 2 Complications: None; Tolerated procedure well Post Procedure Treatment Plan: OK to use for dialysis after CXR Specimen: none
[2018-01-19] MEDS: *HR* HYDROcodone/Acet 7.5/325 mg TABLET PO PRN (20:35)
[2018-01-20] MEDS: Ipratropium/Albuterol Neb 3 ML IH SCH ×6 (04:10→23:49)
[2018-01-20 07:47] LABS: Hematocrit 28.2 % (37.5-50.1); Hemoglobin 9.5 g/dL (12.9-16.9); Mean Corpuscular HGB Conc 33.7 g/dL (31.6-35.5); Mean Corpuscular Hemoglobin 31.1 pg (28.0-33.3); Mean Corpuscular Volume 92.5 fL (83.0-100.0); Mean Platelet Volume 9.1 fL (9.4-12.4); Platelet Count 232 K/mcL (140-400); Red Blood Count 3.05 M/mcL (4.19-5.50); Red Cell Distribution Width 13.9 % (11.5-14.5)
[2018-01-20 08:00] LABS: Calcium 8.1 mg/dL (8.6-10.3)
[2018-01-20] MEDS: Amoxicillin 500 MG CAPSULE PO SCH ×2 (08:12→20:35)
[2018-01-20] MEDS: Multivit/Ca/Min/Fe/FA 1 TAB TABLET PO SCH (08:12)
[2018-01-20] MEDS: Renal Vitamin 1 CAP CAPSULE PO SCH (08:13)
[2018-01-20] MEDS: Cholecalciferol (D-3) 1,000 UNIT TABLET PO SCH (08:13)
[2018-01-20] MEDS: Insulin LISPRO 300 UNITS/3 ML VIAL SQ SCH ×4 (08:14→20:29)
[2018-01-20] MEDS: Insulin DETEMIR 100 UNIT/ML X5UNITS SQ SCH ×2 (08:20→20:35)
--- NOTE | 2018-01-20 09:09 | Nephrology Progress Note ---
Date of Encounter: 01/20/18 Time of Encounter: 09:45 - Assessment and Plan (1) DELFINA (acute kidney injury) Current Visit: Yes Status: Acute eGFR at 19, down only from 20, so I do not recommend HD today. He has a hx of CKD stage IV so he's not far from his baseline. He will need to remain hospitalized and to assess if he'll need outpatient dialysis based upon renal function labs, UOP and exam. If he does not need further HD, then I'd recommend removal of the Permacath before discharge. Will follow with you. Thank you. (2) Kidney hematoma Current Visit: Yes Status: Acute See below. Hgb stable. Qualifiers: Encounter type: subsequent encounter Laterality: left Qualified Code(s): S37.012D - Minor contusion of left kidney, subsequent encounter (3) Stage 4 chronic kidney disease Current Visit: Yes Status: Chronic Renal biopsy documented diabetic and HTN features. The renal biopsy was described as mostly medulla, which suggests a very deep renal biopsy, which perhaps may have contributed to the retroperitoneal/renal hematoma. (4) Diabetic renal disease Current Visit: Yes Status: Chronic See above, found on renal biopsy. Advise ideal glycemic control and lifestyle mods to help delay CKD progression. Qualifiers: Diabetes mellitus type: type 2 Qualified Code(s): E11.21 - Type 2 diabetes mellitus with diabetic nephropathy (5) Acute flank pain Current Visit: Yes Status: Acute Improving. Subjective Principal diagnosis: hematoma s/p left kidney biopsy Interval history: Pt was s/e. He affirmed having a better appetite and ate all his Breakfast without N/V or dysuria or confusion or CP. His was not present in the room during my rounds. He said his left flank pain has improved today compared to yesterday. Objective - Vital Signs Vital signs: Vital Signs Temp Pulse Resp BP Pulse Ox 01/20/18 07:46 98.0 F 75 16 179/79 96 01/20/18 07:33 18 96 01/20/18 04:57 99.1 F 77 14 153/53 93 01/20/18 04:10 16 96 01/20/18 00:11 98.4 F 82 16 177/76 96 01/19/18 23:11 16 94 01/19/18 19:27 16 96 01/19/18 19:00 98.6 F 74 16 153/76 96 01/19/18 15:32 98.6 F 77 16 172/84 94 01/19/18 15:22 18 97 01/19/18 14:20 79 17 153/86 97 01/19/18 11:29 16 97 01/19/18 10:50 97.8 F 64 16 154/83 97 Intake and Output 01/19/18 01/20/18 01/20/18 23:59 07:59 15:59 Intake Total 120 / 120 Output Total 650 / 650 450 / 450 Balance -530 / -530 -450 / -450 Intake: Oral 120 / 120 Output: Urine 650 / 650 450 / 450 Other: Meal Dinner Percent of Meal Consumed 50% Weight 101.1 kg Blood Glucose* 177 171 Patient Weight 01/20/18 23:59 Weight 101.1 kg - General Appearance General appearance: Present: well-developed, appears started age, fatigue, frail EENT: Present: ATNC, PERRL, mucous membranes moist Respiratory: Present: clear Cardiology: Present: regular rate, normal S1, normal S2 Dialysis Vascular Access: Venous Catheter (RIJ TDC with dressing C/D/I) Gastrointestinal: Present: normoactive bowel sounds, no guarding, obese. Absent : costovertebral Integumentary: Present: no rash, warm and dry Neurologic: Present: no focal deficit, no asterixis, alert and oriented x3 Musculoskeletal: Present: no deformities, no erythema, no cyanosis Psychiatric: Present: mood/affect appropriate, cooperative - Lab 01/20/18 07:13 01/20/18 07:13 Most recent lab results Calcium 8.1 mg/dL (8.6-10.3) L 01/20/18 07:13 Phosphorus 3.3 mg/dL (2.7-4.5) 01/19/18 05:21 Magnesium 2.0 mg/dL (1.6-2.6) 01/12/18 03:07 Urine Creatinine 150 mg/dL 01/11/18 07:30 Urine Sodium 53.8 mEq/L 01/11/18 16:10 - VTE Documentation of Mechanical Device: Intermittent pneumatic compression device Consult Discharge Plan - Plan Referrals: Jayy Truong MD [Partnered Physician] - (patient will see the physician in dialysis center) Esequiel Bernstein MD [Primary Care Provider] - (patient is going to ECF) Prescriptions: Renal Vitamin [Renal Caps Softgel] 1 cap PO DAILY #30 capsule
[2018-01-20] MEDS: Ondansetron 4 MG/2 ML VIAL IVP PRN (15:36)
--- NOTE | 2018-01-20 19:13 | Internal Med Progress Note ---
Hospitalist Progress Note - Encounter Date of Encounter: 01/20/18 Time of Encounter: 11:00 - Subjective Interval History: Patient's renal function stabilize and not worsening Patient's leukocytosis has resolved and patient is afebrile after treatment for pneumonia/sepsis - Exam Vitals: Temp Pulse Resp BP Pulse Ox 98.8 F 81 17 154/75 96 01/20/18 19:08 01/20/18 19:08 01/20/18 19:08 01/20/18 19:08 01/20/18 19:08 Exam: Gen.: Nonacute distress, alert and oriented 3 ENT: Mucosal membranes moist Respiratory: Lungs are clear to auscultation bilaterally without any wheezing rhonchi or rales Cardiovascular: Normal S1 and S2 regular rate rhythm no murmurs rubs or gallops Abdomen: Soft, nontender and nondistended with positive bowel sounds Extremities: No lower extremity edema Skin: Normal color - Assessment and Plan (1) Stage 4 chronic kidney disease Current Visit: Yes Status: Chronic Assessment and Plan: She renal function stable. Nephrology following with recommendations to monitor for consideration of hemodialysis Appreciate recommendations (2) Kidney hematoma Current Visit: Yes Status: Acute Assessment and Plan: Stable on repeat images and hemoglobin stable Continue to monitor (3) Sepsis due to pneumonia Current Visit: Yes Status: Resolved Assessment and Plan: Resolved; patient has complete antibiotic course for pneumonia (4) PNA (pneumonia) Current Visit: Yes Status: Acute Assessment and Plan: Patient has completed antibiotic course as above - Time Spent with Patient Total time spent is greater than 50% in coordination of care (as documented) at patient's floor/unit and/or counseling patient: Internal Medicine: Result - Labs CBC & Chem 7: 01/21/18 05:17 01/21/18 05:17 Labs: Short CBC 01/20/18 Range/Units 07:13 WBC 11.7 H (4.3-11.1) K/mcL Hgb 9.5 L (12.9-16.9) g/dL Hct 28.2 L (37.5-50.1) % Plt Count 232 (140-400) K/mcL BMP 01/20/18 07:13 Sodium 133 L Potassium 5.0 Chloride 105 Carbon Dioxide 28 BUN 63 H Creatinine 3.35 H Glucose 175 H Calcium 8.1 L - ABG Interpretation ABG results: PT/INR, D-dimer PT 14.4 Seconds (9.4-12.1) H 01/19/18 05:21 - VTE Documentation of Mechanical Device: Intermittent pneumatic compression device Consult Discharge Plan - Plan Referrals: Jayy Truong MD [Partnered Physician] - (patient will see the physician in dialysis center) Esequiel Bernstein MD [Primary Care Provider] - (patient is going to ECF) Prescriptions: Renal Vitamin [Renal Caps Softgel] 1 cap PO DAILY #30 capsule (2) Kidney hematoma Qualifiers: Encounter type: subsequent encounter Laterality: left Qualified Code(s): S37.012D - Minor contusion of left kidney, subsequent encounter (4) PNA (pneumonia) Qualifiers: Pneumonia type: due to unspecified organism Laterality: right Lung location : lower lobe of lung Qualified Code(s): J18.1 - Lobar pneumonia, unspecified organism
[2018-01-20] MEDS: *HR* HYDROcodone/Acet 7.5/325 mg TABLET PO PRN (20:36)
[2018-01-21] MEDS: Ipratropium/Albuterol Neb 3 ML IH SCH ×6 (04:03→23:33)
[2018-01-21 06:20] LABS: Basophils % 0.2 %; Eosinophils # 0.2 K/mcL (0.0-0.6); Eosinophils % 1.9 %; Hematocrit 26.5 % (37.5-50.1); Hemoglobin 8.9 g/dL (12.9-16.9); Immature Granulocytes % 0.7 % (0-4); Lymphocytes # 1.3 K/mcL (0.6-4.6); Lymphocytes % 12.8 %; Mean Corpuscular HGB Conc 33.6 g/dL (31.6-35.5); Mean Corpuscular Hemoglobin 30.5 pg (28.0-33.3); Mean Corpuscular Volume 90.8 fL (83.0-100.0); Mean Platelet Volume 9.1 fL (9.4-12.4); Monocytes # 0.7 K/mcL (0.0-1.3); Monocytes % 6.5 %; Neutrophils # 8.1 K/mcL (1.6-8.9); Platelet Count 230 K/mcL (140-400); Red Blood Count 2.92 M/mcL (4.19-5.50); Red Cell Distribution Width 13.8 % (11.5-14.5); Segmented Neutrophils % 77.9 %
[2018-01-21 06:43] LABS: Calcium 8.2 mg/dL (8.6-10.3)
[2018-01-21] MEDS: Ondansetron 4 MG/2 ML VIAL IVP PRN ×3 (07:15→21:51)
[2018-01-21] MEDS: Renal Vitamin 1 CAP CAPSULE PO SCH (08:30)
[2018-01-21] MEDS: Multivit/Ca/Min/Fe/FA 1 TAB TABLET PO SCH (08:30)
[2018-01-21] MEDS: Cholecalciferol (D-3) 1,000 UNIT TABLET PO SCH (08:30)
[2018-01-21] MEDS: Insulin LISPRO 300 UNITS/3 ML VIAL SQ SCH ×4 (08:30→21:56)
[2018-01-21] MEDS: Insulin DETEMIR 100 UNIT/ML X5UNITS SQ SCH ×2 (08:35→21:56)
--- NOTE | 2018-01-21 11:10 | Nephrology Progress Note ---
Date of Encounter: 01/21/18 Time of Encounter: 09:50 - Assessment and Plan (1) DELFINA (acute kidney injury) Current Visit: Yes Status: Acute eGFR at 18, so will hold off on HD today and reassess daily. Ideally by the end of the week, his renal function will declare themselves as recovering or dialysis-dependent DELFINA. N/V: consider gastroparesis work up. Continue to follow a renal protective strategy: strict I/Os, daily weights, avoidance of Nephrotoxins including NSAIDs, Bactrim, Contrast, if able and to dose renally cleared Rx by [facility]. Discussed with the Hospitalists. (2) Kidney hematoma Current Visit: Yes Status: Acute Qualifiers: Encounter type: subsequent encounter Laterality: left Qualified Code(s): S37.012D - Minor contusion of left kidney, subsequent encounter (3) Stage 4 chronic kidney disease Current Visit: Yes Status: Chronic Renal biopsy documented diabetic and HTN features. The renal biopsy was described as mostly medulla, which suggests a very deep renal biopsy, which perhaps may have contributed to the retroperitoneal/renal hematoma. (4) Diabetic renal disease Current Visit: Yes Status: Chronic Qualifiers: Diabetes mellitus type: type 2 Qualified Code(s): E11.21 - Type 2 diabetes mellitus with diabetic nephropathy (5) Acute flank pain Current Visit: Yes Status: Resolved Continues to improve, he affirmed. (6) Nausea Current Visit: Yes Status: Acute His fluctuating Nausea (none yesterday, back again and moderately severe today) is not consistent with a uremic associated nausea. Plus his left flank pain has largely improved, he affirmed. So his nausea may be multifactorial and the differential could be expanded. Consider gastric emptying study for work up of diabetic gastroparesis. Subjective Principal diagnosis: hematoma s/p left kidney biopsy Interval history: Pt was s/e. He was by himself in the room. His called in during my interview and exam, and I updated her. He reported having more nausea today despite eating so well yesterday. He denied difficulty with urination or change in UOP. He said his left flank was improved today. Objective - Vital Signs Vital signs: Vital Signs Temp Pulse Resp BP Pulse Ox 01/21/18 07:57 97.8 F 67 16 161/63 97 01/21/18 04:04 16 98 01/21/18 04:01 98 F 68 17 146/72 98 01/21/18 00:47 98.3 F 79 17 157/79 97 01/20/18 19:40 16 95 01/20/18 19:08 98.8 F 81 17 154/75 96 01/20/18 15:57 98.4 F 78 16 157/75 95 01/20/18 15:33 18 99 01/20/18 12:24 98.5 F 74 16 131/71 97 01/20/18 11:11 18 97 Intake and Output 01/20/18 01/21/18 01/21/18 23:59 07:59 15:59 Intake Total 150 / 150 Output Total 440 / 440 700 / 700 Balance -290 / -290 -700 / -700 Intake: Oral 150 / 150 Output: Urine 440 / 440 700 / 700 Other: Meal Dinner Percent of Meal Consumed 30% Weight 101 kg Blood Glucose* 175 149 Patient Weight 01/21/18 23:59 Weight 101 kg - General Appearance Exam: General appearance: Present: well-developed, appears started age, fatigue, frail EENT: Present: ATNC, PERRL, mucous membranes dry today Respiratory: Present: clear Cardiology: Present: regular rate, normal S1, normal S2 Dialysis Vascular Access: Venous Catheter (RIJ TDC with dressing C/D/I) Gastrointestinal: Present: normoactive bowel sounds, no guarding, obese. Costovertebral angle tenderness was not present. Integumentary: Present: no rash, warm and dry Neurologic: Present: no focal deficit, no asterixis, alert and oriented x3 Musculoskeletal: Present: no deformities, no erythema, no cyanosis Psychiatric: Present: mood/affect appropriate, cooperative - Lab 01/21/18 05:17 01/21/18 05:17 Most recent lab results Calcium 8.2 mg/dL (8.6-10.3) L 01/21/18 05:17 Phosphorus 3.3 mg/dL (2.7-4.5) 01/19/18 05:21 Magnesium 2.0 mg/dL (1.6-2.6) 01/12/18 03:07 Urine Creatinine 150 mg/dL 01/11/18 07:30 Urine Sodium 53.8 mEq/L 01/11/18 16:10 - VTE Documentation of Mechanical Device: Intermittent pneumatic compression device Consult Discharge Plan - Plan Referrals: Jayy Truong MD [Partnered Physician] - (patient will see the physician in dialysis center) Esequiel Bernstein MD [Primary Care Provider] - (patient is going to [facility]CF) Prescriptions: Renal Vitamin [Renal Caps Softgel] 1 cap PO DAILY #30 capsule
[2018-01-21] MEDS: *HR* Promethazine 25 MG/ML VIAL IVP PRN (16:27)
--- NOTE | 2018-01-21 18:45 | Internal Med Progress Note ---
Hospitalist Progress Note - Encounter Date of Encounter: 01/21/18 Time of Encounter: 11:00 - Subjective Interval History: She with nausea and vomiting and difficulty tolerating by mouth; Gastric emptying study pending Patient's renal function stabilize and not worsening Patient's leukocytosis has resolved and patient is afebrile after treatment for pneumonia/sepsis - Exam Vitals: Temp Pulse Resp BP Pulse Ox 98.0 F 82 17 178/70 93 01/21/18 16:32 01/21/18 16:32 01/21/18 16:32 01/21/18 16:32 01/21/18 16:32 Exam: Gen.: Nonacute distress, alert and oriented 3 ENT: Mucosal membranes moist Respiratory: Lungs are clear to auscultation bilaterally without any wheezing rhonchi or rales Cardiovascular: Normal S1 and S2 regular rate rhythm no murmurs rubs or gallops Abdomen: Soft, nontender and nondistended with positive bowel sounds Extremities: No lower extremity edema Skin: Normal color - Assessment and Plan (1) Nausea Current Visit: Yes Status: Acute Assessment and Plan: Patient with nausea and and ability to tolerate by mouth Could be secondary to gastroparesis but will order a gastric emptying study (2) Stage 4 chronic kidney disease Current Visit: Yes Status: Chronic Assessment and Plan: Patient's renal function stable. Nephrology following with recommendations to monitor for consideration of hemodialysis Appreciate recommendations (3) Kidney hematoma Current Visit: Yes Status: Acute Assessment and Plan: Stable on repeat images and hemoglobin stable Continue to monitor (4) Sepsis due to pneumonia Current Visit: Yes Status: Resolved Assessment and Plan: Resolved; patient has complete antibiotic course for pneumonia (5) PNA (pneumonia) Current Visit: Yes Status: Acute Assessment and Plan: Patient has completed antibiotic course as above - Time Spent with Patient Total time spent is greater than 50% in coordination of care (as documented) at patient's floor/unit and/or counseling patient: Internal Medicine: Result - Labs CBC & Chem 7: 01/21/18 05:17 01/21/18 05:17 Labs: Short CBC 01/21/18 Range/Units 05:17 WBC 10.3 (4.3-11.1) K/mcL Hgb 8.9 L (12.9-16.9) g/dL Hct 26.5 L (37.5-50.1) % Plt Count 230 (140-400) K/mcL Neutrophils # 8.1 (1.6-8.9) K/mcL BMP 01/21/18 05:17 Sodium 136 Potassium 5.0 Chloride 103 Carbon Dioxide 27 BUN 59 H Creatinine 3.40 H Glucose 145 H Calcium 8.2 L - ABG Interpretation ABG results: PT/INR, D-dimer PT 14.4 Seconds (9.4-12.1) H 01/19/18 05:21 - VTE Documentation of Mechanical Device: Intermittent pneumatic compression device Consult Discharge Plan - Plan Referrals: Jayy Truong MD [Partnered Physician] - (patient will see the physician in dialysis center) Esequiel Bernstein MD [Primary Care Provider] - (patient is going to ECF) Prescriptions: Renal Vitamin [Renal Caps Softgel] 1 cap PO DAILY #30 capsule (3) Kidney hematoma Qualifiers: Encounter type: subsequent encounter Laterality: left Qualified Code(s): S37.012D - Minor contusion of left kidney, subsequent encounter (5) PNA (pneumonia) Qualifiers: Pneumonia type: due to unspecified organism Laterality: right Lung location : lower lobe of lung Qualified Code(s): J18.1 - Lobar pneumonia, unspecified organism
[2018-01-21] MEDS: *HR* HYDROcodone/Acet 7.5/325 mg TABLET PO PRN (21:50)
[2018-01-22] MEDS: Ipratropium/Albuterol Neb 3 ML IH SCH ×3 (03:58→11:06)
[2018-01-22 05:15] LABS: Basophils % 0.2 %; Eosinophils # 0.1 K/mcL (0.0-0.6); Eosinophils % 1.3 %; Hematocrit 28.8 % (37.5-50.1); Hemoglobin 9.7 g/dL (12.9-16.9); Immature Granulocytes % 0.8 % (0-4); Lymphocytes # 1.4 K/mcL (0.6-4.6); Mean Corpuscular HGB Conc 33.7 g/dL (31.6-35.5); Mean Corpuscular Hemoglobin 30.9 pg (28.0-33.3); Mean Corpuscular Volume 91.7 fL (83.0-100.0); Mean Platelet Volume 8.6 fL (9.4-12.4); Monocytes # 0.7 K/mcL (0.0-1.3); Monocytes % 6.2 %; Neutrophils # 8.2 K/mcL (1.6-8.9); Platelet Count 252 K/mcL (140-400); Red Blood Count 3.14 M/mcL (4.19-5.50); Red Cell Distribution Width 13.6 % (11.5-14.5); Segmented Neutrophils % 78.5 %
[2018-01-22 05:35] LABS: Calcium 8.5 mg/dL (8.6-10.3); Potassium 4.8 mEq/L (3.5-5.1)
[2018-01-22] MEDS: Insulin LISPRO 300 UNITS/3 ML VIAL SQ SCH ×2 (08:12→11:36)
[2018-01-22] MEDS: Renal Vitamin 1 CAP CAPSULE PO SCH (08:13)
[2018-01-22] MEDS: Multivit/Ca/Min/Fe/FA 1 TAB TABLET PO SCH (08:13)
[2018-01-22] MEDS: Cholecalciferol (D-3) 1,000 UNIT TABLET PO SCH (08:13)
[2018-01-22] MEDS: Insulin DETEMIR 100 UNIT/ML X5UNITS SQ SCH (08:17)
[2018-01-22 11:22] VITALS: BP 147/68
--- NOTE | 2018-01-22 12:26 | Discharge Summary ---
- NOTES TO OUTPATIENT PROVIDER Notes to Outpatient Provider: none Date of Encounter: 01/22/18 Time of Encounter: 11:00 - Discharge Diagnosis (1) Nausea Priority: Secondary Status: Chronic (2) Stage 4 chronic kidney disease Priority: Secondary Status: Chronic (3) Kidney hematoma Priority: Primary Status: Acute Qualifiers: Encounter type: subsequent encounter Laterality: left Qualified Code(s): S37.012D - Minor contusion of left kidney, subsequent encounter (4) Sepsis due to pneumonia Priority: Primary Status: Resolved (5) PNA (pneumonia) Priority: Primary Status: Acute Qualifiers: Pneumonia type: due to unspecified organism Laterality: right Lung location: lower lobe of lung Qualified Code(s): J18.1 - Lobar pneumonia, unspecified organism Hospital course: Patient is a 67-year-old male with past medical history significant for hypertension and diabetes who presented with left flank pain and nausea. Patients hospital stay patient was treated for sepsis secondary to pneumonia which resolved. Nephrology was also consulted for acute renal failure which improved. Patient will be discharged to follow-up with electrical engineering technologist outpatient. - Time Spent with Patient Total time spent providing and/or coordinating discharge services: Less than 30 minutes - Discharge Medications Prescriptions: Renal Vitamin [Renal Caps Softgel] 1 cap PO DAILY #30 capsule Home Medications: Allopurinol [Zyloprim 300 MG] 300 mg PO DAILY 01/08/18 [History] Aspirin [Adult Aspirin] 81 mg PO DAILY 01/08/18 [History] Atorvastatin [Lipitor] 40 mg PO HS 01/08/18 [History] Cholecalciferol (Vitamin D3) [Vitamin D3] 2,000 unit PO DAILY 01/08/18 [History] Clopidogrel [Plavix] 75 mg PO DAILY 01/08/18 [History] Metoprolol Tartrate 75 mg PO BID 01/08/18 [History] Multivitamin [One Daily Essential] 1 each PO DAILY 01/08/18 [History] Olmesartan Medoxomil [Benicar] 20 mg PO DAILY 01/08/18 [History] amLODIPine [Norvasc] 5 mg PO DAILY 01/08/18 [History] cloNIDine HCl [CloNIDine HCl] 0.1 mg PO DAILY PRN 01/08/18 [History] Insulin NPH Hum/Reg Insulin Hm [Humulin 70-30 Vial] 10 unit SQ QAM AND QHS #0 [Rx] Renal Vitamin [Renal Caps Softgel] 1 cap PO DAILY #30 capsule 01/19/18 [Rx] Allergies/Adverse Reactions: 3 Allergy/AdvReac Type Severity Reaction Status Date / Time morphine AdvReac Nausea Verified 01/08/18 10:10 naproxen [From Naprosyn] AdvReac Rash Verified 01/08/18 10:10 Date of admission: 01/11/18 07:18 Primary care physician: Esequiel Bernstein MD Consults: 01/09/18 07:11 Consult to Interventional Radiology [CONS] Stat Consulting Provider: Radiology Interventional Cols Reason for Consult: renal hematoma Call Completed: Yes 01/09/18 07:15 Consult to Nephrology [CONS] Routine Consulting Provider: Kidney Alana/ELKE/RA/ALEX Reason for Consult: CKD, hematoma Call Completed: No 01/10/18 07:18 Consult to Cardiology [CONS] Routine Comment: Consulting Provider: Cardiology Alana Reason for Consult: CAD, chest pain Call Completed: No 01/11/18 23:17 Consult to Occupational Therapy [CONS] Routine Comment: Evaluate, develop and implement POC Reason for Consult: Patient reports that he was able to ambulate w/o assistance previously but is now experiencing difficulty w/ weakness in bilateral LEs which impedes his ability to ambulate. Please assess patient for ambulation strength , stability, safety, and possible home assistive/ rehabilitation needs for post-discharge planning. Does patient have active BEDREST order?: No Is patient medically & hemodynamically stable?: Yes Patient assessed for mobility or mobilized this visit?: No Consult to Physical Therapy [CONS] Routine Comment: Evaluate, develop and implement POC Reason for Consult: Patient reports that he was able to ambulate w/o assistance previously but is now experiencing difficulty w/ weakness in bilateral LEs which impedes his ability to ambulate. Please assess patient for ambulation strength , stability, safety, and possible home assistive/ rehabilitation needs for post-discharge planning. Does patient have active BEDREST order?: No Is patient medically & hemodynamically stable?: Yes Patient assessed for mobility or mobilized this visit?: No 01/12/18 14:08 Consult to Sk[facility] [CONS] Routine Reason for SW Consult: pt needs swing bed/rehab 01/13/18 10:34 Consult to Interventional Radiology [CONS] Routine Consulting Provider: Radiology Interventional Cols Reason for Consult: Patient needs temp hd cath with third port Call Completed: No 01/13/18 11:15 Consult to Dialysis [CONS] ONCE 01/14/18 07:00 Consult to Dialysis [CONS] ONCE 01/15/18 10:00 Consult to Dialysis [CONS] ONCE 01/16/18 13:36 Consult to [facility] [CONS] Routine Reason for SW Consult: Patient needs HD chair. 01/17/18 07:45 Consult to Dialysis [CONS] ONCE 01/19/18 10:42 Consult to Interventional Radiology [CONS] Routine Consulting Provider: Radiology Interventional Cols Reason for Consult: tunneled catheter Time Notified: 10:43 Call Completed: Yes 01/20/18 09:10 Consult to [facility] [CONS] Routine Reason for SW Consult: Please hold off and do not arrange an outpatient dialysis chair time, as there is a growing chance that he'll not need outpt HD. Thank you. - Constitutional Vitals: Temp Pulse Resp BP Pulse Ox 98.3 F 72 17 147/68 98 01/22/18 11:20 01/22/18 11:20 01/22/18 11:20 01/22/18 11:20 01/22/18 11:20 General appearance: Present: cooperative, mild distress, A&O X 3, obese, answers questions appropriately Exam: Nonacute distress - Patient Status Disposition: Home, Self-Care Condition: Good - Discharge Instructions Instructions: Diabetes Mellitus Type 2 in Adults (DC), Tunneled Central Lines Adult (DC), Pneumonia (DC) Follow Up With: Lenny Patricio DO [Partnered Physician] - 02/06/18 9:10 am (Please follow up as schedule...) Esequiel Bernstein MD [Primary Care Provider] - 02/05/18 10:30 am (Please follow up as schedule...) - VTE Documentation of Mechanical Device: Intermittent pneumatic compression device
--- NOTE | 2018-01-22 12:35 | Nephrology Progress Note ---
Date of Encounter: 01/22/18 Time of Encounter: 09:15 - Assessment and Plan (1) DELFINA (acute kidney injury) Status: Acute He renal function has stabilized at CKD stage IV. As discussed with the hospitalist, it's okay to discharge. I've created an eCW phone note to my outpt clinic team to help schedule a hospital follow up appt with labs, and I've also written an order for an outpt removal of the Permacath. The pt should keep the site clean and not submerge it in the meantime. Thank you. (2) Kidney hematoma Status: Acute H/H has been stable and his flank pain has resolved Qualifiers: Encounter type: subsequent encounter Laterality: left Qualified Code(s): S37.012D - Minor contusion of left kidney, subsequent encounter (3) Stage 4 chronic kidney disease Status: Chronic Renal biopsy documented diabetic and HTN features. The renal biopsy was described as mostly medulla, which suggests a very deep renal biopsy, which perhaps may have contributed to the retroperitoneal/renal hematoma. (4) Diabetic renal disease Status: Chronic Continue glycemic control and lifestyle modifications to help delay CKD progression. Qualifiers: Diabetes mellitus type: type 2 Qualified Code(s): E11.21 - Type 2 diabetes mellitus with diabetic nephropathy (5) Acute flank pain Status: Resolved (6) Nausea Status: Chronic chronic and may need outpt work up such as gastric emptying study at some point. Subjective Principal diagnosis: hematoma s/p left kidney biopsy Interval history: Pt was s/e. He was by himself in the room. He reported that his Nausea was again better today and that in fact he has suffered periodic nausea for several months (chronically), so this was not new. He affirmed that his left flank pain has nearly gone away unless he lays too long in the hospital thin mattress. Objective - Vital Signs Vital signs: Vital Signs Temp Pulse Resp BP Pulse Ox 01/22/18 11:20 98.3 F 72 17 147/68 98 01/22/18 11:06 19 96 01/22/18 08:17 97.8 F 83 19 114/66 96 01/22/18 07:41 18 95 01/22/18 04:08 97.8 F 72 18 151/85 95 01/22/18 03:58 16 94 01/21/18 23:33 16 97 01/21/18 23:10 97.5 F L 63 18 121/57 98 01/21/18 18:59 98.3 F 79 18 164/82 96 01/21/18 16:32 98.0 F 82 17 178/70 93 01/21/18 15:44 18 96 Intake and Output 01/21/18 01/22/18 01/22/18 23:59 07:59 15:59 Intake Total 0 / 0 Output Total 350 / 350 Balance -350 / -350 Intake: Oral 0 / 0 Output: Urine 350 / 350 Other: Meal Dinner Percent of Meal Consumed 0% Weight 96.5 kg Blood Glucose* 119 247 Patient Weight 01/22/18 23:59 Weight 96.5 kg - General Appearance General appearance: Present: well-developed, well-nourished, appears started age , frail EENT: Present: ATNC, PERRL, mucous membranes moist Respiratory: Present: clear Cardiology: Present: no edema, regular rate, regular rhythm, normal S1, normal S2 Dialysis Vascular Access: Venous Catheter (Right Permacath with dressing C/D/I) Gastrointestinal: Present: normoactive bowel sounds, no tenderness, no guarding , obese Integumentary: Present: warm and dry Neurologic: Present: no focal deficit, no asterixis, alert and oriented x3 Musculoskeletal: Present: no deformities, no erythema, no clubbing Psychiatric: Present: mood/affect appropriate (reported feeling very happy and reached out to give me a high-five. ), cooperative - Lab 01/22/18 04:00 01/22/18 04:00 Most recent lab results Calcium 8.5 mg/dL (8.6-10.3) L 01/22/18 04:00 Phosphorus 3.3 mg/dL (2.7-4.5) 01/19/18 05:21 Magnesium 2.0 mg/dL (1.6-2.6) 01/12/18 03:07 Urine Creatinine 150 mg/dL 01/11/18 07:30 Urine Sodium 53.8 mEq/L 01/11/18 16:10 - VTE Documentation of Mechanical Device: Intermittent pneumatic compression device Consult Discharge Plan - Plan Instructions: Diabetes Mellitus Type 2 in Adults (DC), Tunneled Central Lines Adult (DC), Pneumonia (DC) Referrals: Lenny Patricio DO [Partnered Physician] - 09/14/18 9:10 am (Please follow up as schedule...) Esequiel Bernstein MD [Primary Care Provider] - 02/05/18 10:30 am (Please follow up as schedule...) Prescriptions: Renal Vitamin [Renal Caps Softgel] 1 cap PO DAILY #30 capsule
--- NOTE | 2018-01-22 14:51 | Physician Discharge Referral ---
Home Health/Hosp Referral Info Transfer to: Home Health - Diagnosis (1) Nausea Status: Acute (2) Stage 4 chronic kidney disease Status: Chronic (3) Kidney hematoma Status: Acute (4) Sepsis due to pneumonia Status: Resolved (5) PNA (pneumonia) Status: Acute - Respiratory Orders Smoking Cessation: Smoking cessation has been advised. For more information, call the [place] Tobacco Quit Line at 1-275-VQMS-NOW. - Services Needed Following services are medically necessary services: Nursing, Physical Therapy, Occupational Therapy - Transfer Medications Prescriptions: Renal Vitamin [Renal Caps Softgel] 1 cap PO DAILY #30 capsule Home Medications: Allopurinol [Zyloprim 300 MG] 300 mg PO DAILY 01/08/18 [History] Aspirin [Adult Aspirin] 81 mg PO DAILY 01/08/18 [History] Atorvastatin [Lipitor] 40 mg PO HS 01/08/18 [History] Cholecalciferol (Vitamin D3) [Vitamin D3] 2,000 unit PO DAILY 01/08/18 [History] Clopidogrel [Plavix] 75 mg PO DAILY 01/08/18 [History] Metoprolol Tartrate 75 mg PO BID 01/08/18 [History] Multivitamin [One Daily Essential] 1 each PO DAILY 01/08/18 [History] Olmesartan Medoxomil [Benicar] 20 mg PO DAILY 01/08/18 [History] amLODIPine [Norvasc] 5 mg PO DAILY 01/08/18 [History] cloNIDine HCl [CloNIDine HCl] 0.1 mg PO DAILY PRN 01/08/18 [History] Insulin NPH Hum/Reg Insulin Hm [Humulin 70-30 Vial] 10 unit SQ QAM AND QHS #0 [Rx] Renal Vitamin [Renal Caps Softgel] 1 cap PO DAILY #30 capsule 01/19/18 [Rx] Allergies/Adverse Reactions: 3 Allergy/AdvReac Type Severity Reaction Status Date / Time morphine AdvReac Nausea Verified 01/08/18 10:10 naproxen [From Naprosyn] AdvReac Rash Verified 01/08/18 10:10 Certification: Further, I certify that my clinical findings support that this patient is homebound (i.e. absences from home require considerable and taxing effort and are for medical reasons or sikhism services or infrequently or short duration when for other reasons) because: Homebound Reason: Patient requires assistance of a person or device to safely leave home Attestation: My signature below is to certify that this patient is under my care and that I, or nurse practitioner, or a physician's assistant professor surgical technology working with me, has a face-to -face encounter with this patient.
== END 2018-01-22 15:23 | disposition home or self-care (01) | DRG 919 ==
LOC: 2ANU → SUATTDRO 01-11 07:18
PROVIDERS: ADMIT Family Medicine; ATTEND Hospitalist
PROC: IRPERMA (2018-01-19 12:00)